=== PATIENT | female | born 1955 | race Caucasian/White ===

== ENCOUNTER 2020-12-08 17:11 | Outpatient (CLI) | payer MEDICARE, SELFPAY ==
--- NOTE | ~2020-12-08 | XR_ITS ---
EXAMINATION: XR thoracic spine 2V DATE: 12/08/2020 17:50 INDICATION: Back pain TECHNIQUE: AP and lateral views of the thoracic spine were obtained. COMPARISON: 02/14/2012 FINDINGS: There is no fracture. The vertebral body heights and alignment are maintained. There is mil d to moderate loss of intervertebral disc space height at multiple levels. Degenerative osteophytes p roject from the anterior endplates of multiple vertebral bodies. Changes of anterior fusion procedure are noted in the cervical spine. IMPRESSION: 1. Moderate thoracic spondylosis without acute findings or significant interval change. Reviewed, dictated and finalized at location A. L STRUCTURAL ENGINEER
--- NOTE | ~2020-12-08 | XR_ITS ---
EXAMINATION: XR chest 2V DATE: 12/08/2020 17:51 INDICATION: Right chest pain TECHNIQUE: PA and lateral views of the chest are obtained. COMPARISON: 01/11/2014 FINDINGS: The lungs are free of acute opacities. There is no pleural effusion or pneumothorax. The ca rdiomediastinal silhouette is normal. There is moderate thoracic spondylosis. Changes of anterior fus ion procedure are noted in the lower cervical spine. IMPRESSION: 1. No acute cardiopulmonary abnormality. Reviewed, dictated and finalized at location A. ITURE MECHANIC
== END 2020-12-08 17:12 | disposition home or self-care (01) ==
LOC: CHSIMG 17:15
PROVIDERS: PCP Internal Medicine; Visit Provider Internal Medicine
DX: M54.6 Pain in thoracic spine (principal); R07.9 Chest pain, unspecified; R10.11 Right upper quadrant pain
CPT/HCPCS: 71046; 72070

== ENCOUNTER 2020-12-14 07:47 | Outpatient (CLI) | payer MEDICARE, SELFPAY ==
--- NOTE | ~2020-12-14 | US_ITS ---
EXAMINATION: US right upper quadrant DATE: 12/14/2020 08:29 INDICATION: Right upper quadrant abdominal pain. TECHNIQUE: Multiple grayscale and Doppler ultrasound images of the abdomen were obtained. COMPARISON: None FINDINGS: The visualized portions of the head, body, and tail of the pancreas are normal. The liver i s normal without focal lesion. No liver surface nodularity. There is normal flow in main portal vein. The gallbladder is normal in size. No gallstones or gallbladder wall thickening. There was no sonogr aphic Talbot sign. The common duct is normal and measures 5 mm. IMPRESSION: 1. Normal right upper quadrant ultrasound. Reviewed, dictated and finalized at location A. OF BIOLOGY
== END 2020-12-14 07:48 | disposition home or self-care (01) ==
LOC: CHSIMG 07:49
PROVIDERS: PCP Internal Medicine; Visit Provider Internal Medicine
DX: R10.11 Right upper quadrant pain (principal)
CPT/HCPCS: 76705

== ENCOUNTER 2020-12-20 06:52 | Outpatient (CLI) | payer MEDICARE, SELFPAY ==
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
[2020-12-20 07:45] LABS: Estimated Glomerular Filt Rate 56
== END 2020-12-20 06:53 | disposition home or self-care (01) ==
PROVIDERS: Family Provider Internal Medicine; PCP Internal Medicine; Visit Provider Internal Medicine
DX: M54.6 Pain in thoracic spine (principal); R07.89 Other chest pain; Z98.1 Arthrodesis status; K44.9 Diaphragmatic hernia without obstruction or gangrene; I25.10 Atherosclerotic heart disease of native coronary artery without angina pectoris; M85.88 Other specified disorders of bone density and structure, other site
CPT/HCPCS: 71260; Q9967

== ENCOUNTER 2020-12-24 12:29 | Outpatient (CLI) | payer MEDICARE, SELFPAY ==
--- NOTE | ~2020-12-24 | MR_ITS ---
EXAMINATION: MR thoracic spine wo con EXAM DATE: 12/24/2020 13:15 INDICATION: Mid back pain; chest wall pain. TECHNIQUE: Multi-sequential, multiplanar MR images of the thoracic spine were obtained without contra st. Sagittal T1, T2, T2 fat saturation, axial T2 weighted images reviewed. Correlation is made to oracic x-ray 12/08/2020. FINDINGS: There is mild to moderate mid and lower thoracic disc disease. There is small disc central extrusion at T6-7 with cephalad migration. This is indenting the spinal cord but there is no cord ed inocente and only mild central canal stenosis. Smaller disc protrusion at the T7-8 level. No significant t horacic neural foraminal stenosis. The spinal cord signal intensity and intrinsic morphology is juni l. There are are no suspicious marrow signal abnormalities. Paraspinal soft tissue is unremarkable. 2 cm right thyroid lobe nodule. IMPRESSION: 1. Mild to moderate thoracic spondylosis as above. Reviewed, dictated and finalized at location B. MOTIVE GENERAL SALES MANAGER
== END 2020-12-24 12:30 | disposition home or self-care (01) ==
PROVIDERS: PCP Internal Medicine; Visit Provider Internal Medicine
DX: R07.9 Chest pain, unspecified (principal); M47.894 Other spondylosis, thoracic region
CPT/HCPCS: 72146

== ENCOUNTER 2021-06-27 09:55 | Outpatient (CLI) | payer MEDICARE, SELFPAY ==
[2021-06-27 10:59] LABS: SARS-CoV-2 RNA PCR Positive (Negative)
== END 2021-06-27 09:56 | disposition home or self-care (01) ==
PROVIDERS: PCP Internal Medicine; Visit Provider Internal Medicine
DX: U07.1 COVID-19 (principal)
CPT/HCPCS: C9803; U0003; U0005

== ENCOUNTER 2022-07-04 13:03 | Outpatient (CLI) | payer MEDICARE, SELFPAY ==
--- NOTE | ~2022-07-04 | XR_ITS ---
XR knee RT min 4V 07/04/2022 13:36 Indication: Right knee pain Procedure: 4 views right knee Comparison: No prior studies for comparison. Findings: There is mild tricompartment osteoarthritis of the right knee. There is chondrocalcinosis. No fracture or traumatic malalignment. No joint effusion. Impression: 1: Mild osteoarthritis of the right knee. Reviewed, dictated and finalized at location B. Impression: 1: Mild osteoarthritis of the right knee.
--- NOTE | ~2022-07-04 | XR_ITS ---
EXAMINATION: XR elbow LT min 3V DATE: 07/04/2022 13:35 INDICATION: Left elbow pain TECHNIQUE: Anteroposterior, two oblique and lateral views of the left elbow were obtained. COMPARISON: 03/27/2011 FINDINGS: Alignment is normal. No fracture or joint effusion. There is mild osteoarthritis of the elb ow. Soft tissues are unremarkable. IMPRESSION: 1. No acute osseous abnormality. Reviewed, dictated and finalized at location A.
--- NOTE | ~2022-07-04 | XR_ITS ---
EXAMINATION: XR knee LT min 4V DATE: 07/04/2022 13:36 INDICATION: Left knee pain TECHNIQUE: Four views of the left knee were obtained. COMPARISON: 12/21/2020 FINDINGS: Bone alignment is normal. There is fracture. Chondrocalcinosis is noted. There is mild tric ompartmental osteoarthritis characterized by tiny marginal osteophytes. No joint effusion/synovitis. Soft tissues are unremarkable. IMPRESSION: 1. Osteoarthritis without acute osseous abnormality. Reviewed, dictated and finalized at location A.
--- NOTE | ~2022-07-04 | XR_ITS ---
XR shoulder LT min 2V 07/04/2022 13:35 Indication: Left shoulder pain Procedure: 4 views left shoulder Comparison: 02/16/2021 Findings: There is polyarticular osteoarthritis of the left shoulder. No fracture is identified. No f oreign bodies. Visualized lung parenchyma is are unremarkable. Impression: 1: Polyarticular osteoarthritis of the left shoulder. Reviewed, dictated and finalized at location B. Impression: 1: Polyarticular osteoarthritis of the left shoulder.
== END 2022-07-04 13:04 | disposition home or self-care (01) ==
LOC: ANHIMG 13:05
PROVIDERS: PCP Internal Medicine; Visit Provider Internal Medicine
DX: M19.012 Primary osteoarthritis, left shoulder (principal); M17.0 Bilateral primary osteoarthritis of knee; M25.522 Pain in left elbow
CPT/HCPCS: 73030; 73080; 73564

== ENCOUNTER 2022-07-10 12:49 | Outpatient (CLI) | payer MEDICARE, SELFPAY | END 2022-07-10 12:50 | disposition home or self-care (01) | LOC: ANHAUDIO 12:53 | PROVIDERS: PCP Internal Medicine; Visit Provider Internal Medicine | DX: H90.3 Sensorineural hearing loss, bilateral (principal) | CPT/HCPCS: 92557; 92567 ==

== ENCOUNTER 2022-08-10 10:06 | Outpatient (CLI) | payer MEDICARE, SELFPAY ==
--- NOTE | ~2022-08-10 | MM_ITS ---
EXAMINATION: MM screening [facility] BI w sarah HISTORY: Screening mammogram TECHNIQUE: Craniocaudal and mediolateral oblique 3-D tomosynthesis images were obtained and synthetic 2-D images were generated. CAD analysis was submitted and interpreted. COMPARISON: 05/05/2019, 01/24/2017, 01/19/2015 BREAST PARENCHYMAL COMPOSITION: There are scattered areas of fibroglandular density. FINDINGS: There is no suspicious mass, calcification, or architectural distortion to suggest malignan cy in either breast. There has been no suspicious interval change. IMPRESSION: 1. No mammographic evidence of malignancy. 2. Recommend routine screening mammography in one year. BI-RADS Category 1: Negative Reviewed, dictated and finalized at location A.
== END 2022-08-10 10:07 | disposition home or self-care (01) ==
PROVIDERS: PCP Internal Medicine; Visit Provider Internal Medicine
DX: Z12.31 Encounter for screening mammogram for malignant neoplasm of breast (principal)
CPT/HCPCS: 77063; 77067

== ENCOUNTER 2022-09-19 07:44 | Outpatient (CLI) | payer MEDICARE, SELFPAY ==
--- NOTE | ~2022-09-19 | MR_ITS ---
EXAMINATION: MR shoulder LT wo con DATE: 09/19/2022 08:26 INDICATION: Left shoulder pain TECHNIQUE: Magnetic resonance imaging (MRI) of the left shoulder was performed without intravenous co ntrast. Sequences included axial PD-weighted FS FSE, coronal oblique PD-weighted FS FSE, coronal obli que T2-weighted FS FSE, sagittal PD-weighted FS FSE, and sagittal T1-weighted SE. COMPARISON: None. FINDINGS: Coracoacromial arch: The acromion undersurface is flat in morphology (type I). Small anterior subacromial spur at the femo ral insertion of the coracoclavicular ligament. Moderate acromioclavicular osteoarthritis. Rotator cuff: Mild to moderate supraspinatus and infraspinatus tendinopathy with prominent anteriorly. There is a s mall partial-thickness tear at the distal supraspinatus tendon which appears to involve the bursal catalan rface. The tear measures 3 mm AP and involving approximately two thirds of the tendon thickness at th e anterior aspect of the superior facet footplate. The teres minor and subscapularis tendons are norm al. Normal rotator cuff muscle bulk and signal. Biceps tendon, glenoid labrum and glenohumeral cartilage: Long head of the biceps tendon is normal. Linear tear at the base of the anterior to anteroinferior g lenoid labrum with associated small para labral cysts along the anterior neck of the glenoid. More ir regular linear increased signal consistent with additional tear at the anterosuperior labrum. Additio nal small loculated fluid collections extending both anterior and posterior to the neck of the coraco id process. Anteriorly this could represent a typical recess of the joint however the more posterior extension would be atypical and suggests this is more likely related to an additional prior labral cy st. Partial-thickness cartilage loss along the anterior glenoid greatest anteroinferiorly where there are small marginal osteophytes and mild subarticular cystic changes at the 7-8:00 position of the an teroinferior rim of the glenoid. Mild amorphous increased intrasubstance signal at the posterior supe rior labrum which appears thickened with rounded margin consistent with labral degeneration. Fluid: Physiologic amount of fluid in the glenohumeral joint and biceps tendon sheath. No loose osteochondr al bodies. Small amount of fluid in the subacromial/subdeltoid bursa consistent with mild bursitis. Bones: Normal marrow signal with no edema, fracture or abnormal marrow replacing process. IMPRESSION: 1. Mild glenohumeral osteoarthritis with small region of high-grade chondromalacia at the anteroinfer ior glenoid. 2. Labral tear extending superiorly from the anteroinferior glenoid to involve the anterior, superior and posterosuperior labrum. There appear to be associated anterior and anterosuperior paralabral cys ts. 3. Mild to moderate supraspinatus and infraspinatus tendinopathy with very small moderate severity bu rsal sided tear at the footplate of the anterior supraspinatus tendon. 4. Moderate acromioclavicular osteoarthritis. 5. Mild subacromial/subdeltoid bursitis. Reviewed, dictated and finalized at location B. IMPRESSION: 1. Mild glenohumeral osteoarthritis with small region of high-grade chondromala chinyere at the anteroinferior glenoid. 2. Labral tear extending superiorly from the anteroinferior glenoid to involve the anterior, superior and posterosuperior labrum. There appear to be associate d anterior and anterosuperior paralabral cysts. 3. Mild to moderate supraspinatus and infraspinatus tendinopathy with very smal l moderate severity bursal sided tear at the footplate of the anterior supraspi natus tendon. 4. Moderate acromioclavicular osteoarthritis. 5. Mild subacromial/subdeltoid bursitis.
== END 2022-09-19 07:45 ==
PROVIDERS: PCP Internal Medicine; Visit Provider Internal Medicine
DX: M75.52 Bursitis of left shoulder (principal); M19.012 Primary osteoarthritis, left shoulder
CPT/HCPCS: 73221

== ENCOUNTER 2022-10-04 01:32 | Observation (INO) | payer MEDICARE, SELFPAY ==
[2022-10-04] VITALS (46 sets, daily range): BP systolic 105–149; BP diastolic 50–104; PULSE 60–118; RESP 11–23; TEMP 36.6–37.4; O2SAT 94–100; BMI 41.3
--- NOTE | ~2022-10-04 | XR_ITS ---
EXAMINATION: XR chest 2V DATE: 10/04/2022 02:13 INDICATION: Chest pain. TECHNIQUE: Frontal and lateral views of the chest were obtained. COMPARISON: Chest 2 views 12/08/2020 FINDINGS: There is mild atelectasis in left lower lung zone. No pleural effusion or pneumothorax. The heart size is normal. There are changes of anterior fusion procedure in cervical spine. IMPRESSION: 1. Mild atelectasis in left lower lung zone. Reviewed, dictated and finalized at location A. S SPECIALIST
--- NOTE | 2022-10-04 01:37 | ECG_ITS ---
Measurements Intervals [place] Rate: 68 P: 30 CT: 140 QRS: -44 QRSD: 125 T: 30 QT: 420 QTc: 448 Interpretive Statements SINUS RHYTHM LEFT AXIS DEVIATION POSSIBLE LEFT ATRIAL ENLARGEMENT RIGHT BUNDLE BRANCH BLOCK POSSIBLE LEFT VENTRICULAR HYPERTROPHY MINIMAL Q WAVES- HIGH LATERAL LEADS CANNOT RULE OUT SEPTAL INFARCT, AGE INDETERMINATE ABNORMAL ECG NO PREVIOUS ECG AVAILABLE FOR COMPARISON Electronically Signed On 10-04-2022 5:51:16 ANTI AIR WARFARE OPERATIONS OFFICER by Wilbert Olivo D.O.
[2022-10-04 01:56] LABS: Basophils Absolute Auto 0.1 K/mm3 (0.0-0.1); Basophils Percent Auto 0.6 % (0.2-1.2); Eosinophils Absolute Auto 0.2 K/mm3 (0-0.3); Eosinophils Percent Auto 1.6 % (0-4.4); Hematocrit 39.6 % (37.0-47.0); Hemoglobin 12.6 g/dL (12.0-15.0); Immature Granulocyte Absolute 0.05 K/mm3 (0.00-0.031); Immature Granulocyte Percent A 0.4 % (0-0.5); Lymphocytes Absolute Auto 3.07 K/mm3 (0.9-3.2); Lymphocytes Percent Auto 25.5 % (18.3-44.2); Mean Corpuscular HGB Conc 31.8 g/dl (32-36); Mean Corpuscular Hemoglobin 30.8 pg (26-34); Mean Corpuscular Volume 96.8 fl (80-100); Mean Platelet Volume 9.6 fl (7.4-10.4); Monocytes Absolute Auto 0.7 K/mm3 (0.1-0.6); Monocytes Percent Auto 5.7 % (2.6-8.5); Neutrophils Percent Auto 66.2 % (45.5-73.1); Platelet Count Result 329 k/mm3 (150-375); Red Blood Count 4.09 M/mm3 (4.2-5.4); Red Cell Distribution Width 13.4 % (11.5-14.5)
--- NOTE | 2022-10-04 02:03 | ED.GENADULT ---
HPI - General Adult General Chief complaint: Chest Pain Stated complaint: CP Time Seen by Provider: 10/04/22 01:44 History of Present Illness HPI narrative: Patient is a 67-year-old female who presents emergency department with chief complaint of chest pain. Patient reports this evening around 10:30-11 she started having chest discomfort. The patient states it woke her up reports that she got a little short of breath with it reports the pain radiates to her neck. Patient reports the pain is not improved by anything nor is it worsened by anything. Patient reports that she has had a cardiac cath in the past that did not require any stent placement but did have some small vessel disease and has had a imaging study that showed that she had some blockage in her posterior aspect of her heart but has not required stenting from her recent imaging study. The patient states that she is unable to tolerate statins and is on a blood pressure medicine. Related Data Home Medications Medication Instructions Recorded Confirmed cholecalciferol (vitamin D3) 125 125 mcg PO DAILY 12/16/20 10/04/22 mcg (5,000 unit) capsule cranberry extract 500 mg capsule 500 mg PO DAILY 12/16/20 10/04/22 (Cranberry Concentrate) ferrous sulfate 27 mg iron tablet 27 mg PO DAILY 10/04/22 10/04/22 fluticasone propionate 50 1 spray intranasal BID 10/04/22 10/04/22 mcg/actuation nasal spray,suspension ibuprofen 200 mg tablet (Advil) 200 mg PO Q6H PRN Pain (Scale 10/04/22 10/04/22 Score 1-3) losartan 100 1 tablet PO DAILY 10/04/22 10/04/22 mg-hydrochlorothiazide 25 mg tablet multivitamin with minerals-folic 2 tablet PO DAILY 10/04/22 10/04/22 acid 200 mcg chewable tablet (Adult Multivitamin Gummies) potassium chloride 10 mEq 10 meq PO DAILY 10/04/22 10/04/22 tablet,extended release(part/cryst) Allergies Allergy/AdvReac Type Severity Reaction Status Date / Time NSAIDS (Non-Steroidal Allergy Intermediate Verified 01/11/14 15:10 Anti-Inflamma Review of Systems Review of Systems: Stroke A 10 system review of systems was completed on the patient and is negative except for what is stated in the HPI. Nursing and ancillary documentation was reviewed. [facility] Past Medical History Medical History BMI 39.0-39.9,adult Calcific tendinitis of left shoulder Chondrocalcinosis of left knee Gout Hypertension Surgical History Surgical History H/O neck surgery 2001, 2007 Dr. Brush , Dr. Mendoza Previous back surgery lower back, 2011, Dr. Mendoza Family History Family History Sibling Family history of diabetes mellitus in first degree relative Father Family history of heart disease in male family member before age 55 Other Family history of cardiovascular disease Hypertension Social History Social History Smoking status: Never smoker Smoking end date: 11/19/95 Alcohol intake: never Substance use: never Lack of Transportation: No Lack of Food: Never True Current Housing: I Have Housing Concerned About Future Housing: No Difficulty Paying Gas/Electric Bills: No Difficulty Paying for Meds: No Currently Unemployed: No Education: Decline to Answer Difficulty w/ Childcare or Family Care: No Gender identity (if verbalized by the patient): Female Spiritual care concerns: No Exam Narrative: GENERAL: Well-appearing, well-nourished, and in no acute distress. HEAD: Normocephalic, atraumatic. EYES: PERRLA and EOMI. ENT: Nares clear, no rhinorrhea or epistaxis. Mucous membranes moist. NECK: Supple. CHEST: Clear to auscultation. No respiratory distress. HEART: Regular rate and rhythm. No murmur heard. Normal peripheral pulses. ABDOMEN: Soft, nontender, nondistend
[2022-10-04 02:07] LABS: Alanine Aminotransferase 21 U/L (6-35); Albumin Level 4.6 g/dL (3.5-5.1); Alkaline Phosphatase 82 U/L (38-126); Anion Gap 11 mmol/L (8-16); Aspartate Amino Transferase 26 U/L (14-36); Bilirubin,Total 0.5 mg/dL (0.2-1.3); Blood Urea Nitrogen 22 mg/dL (7-17); Calcium 9.5 mg/dL (8.4-10.2); Carbon Dioxide 26 mmol/L (22-30); Chloride 101 mmol/L (98-107); Estimated CRCL calculation 69 ml/min; Estimated Glomerular Filt Rate > 60; Glucose 121 mg/dL (65-110); Lipase 239 U/L (23-300); Partial Thromboplastin Time 26.6 SECONDS (22.3-36.8); Potassium 3.7 mmol/L (3.4-5.0); Prothrombin Time 12.6 Seconds (11.1-14.7); Sodium 138 mmol/L (137-145)
[2022-10-04] MEDS: MORPHINE SULFATE (*CRX) 4 MG/ML INJ IV PUSH (02:15)
[2022-10-04] MEDS: ONDANSETRON INJ 4 MG/2 ML VIAL IV PUSH (02:15)
[2022-10-04] MEDS: NITROGLYCERIN SL 0.4 MG TABLET SUBLINGUAL (02:15)
[2022-10-04 02:19] LABS: Troponin I < 0.012 ng/mL (0.000-0.034)
[2022-10-04] MEDS: HYDROmorphone HCL INJ (*CRX) 1 MG/ML SYR IV PUSH ×2 (04:00→08:45)
--- NOTE | 2022-10-04 04:18 | PC.NURSE ---
Dr Lucas notified pt placed on 2 Liters O2 via NC for O2 sat 87% on room air after pain meds administered. No new orders received.
[2022-10-04 04:57] LABS: Influenza A QL RT-PCR Negative (Negative); Influenza B QL RT-PCR Negative (Negative); SARS-CoV-2 RNA PCR Negative
--- NOTE | 2022-10-04 05:49 | ADMGEN ---
This patient, Laury Tillman, was admitted to IMU Room 201-01. Patient/family oriented to hospital policies and general routines including ID bracelet, bed and alarms, visiting hours, pain management, procedures, bathroom and other care routines, personal items, smoking policy, room service/diet, and visiting hours. Information on how to activate the Rapid Response Team has been discussed. Patient/Family are encouraged to report perceived risks to care and to ask questions if they do not understand what they are told or what they should do.
[2022-10-04 08:00] LABS: Troponin I < 0.012 ng/mL (0.000-0.034)
[2022-10-04] MEDS: ASPIRIN 81 MG CHEWABLE TABLET PO (08:45)
[2022-10-04] MEDS: PANTOPRAZOLE SODIUM IV 40 MG VIAL IV PUSH (08:45)
--- NOTE | 2022-10-04 10:27 | PM.IMHP ---
H&P: HPI History of Present Illness Date/Time: 10/04/22 10:27 Chief Complaint: Patient complains of chest pain Narrative: 67-year-old female complains of midsternal chest pain sharp in nature so chest pain lasting 10-15 minutes. No history of any abdominal pain nausea vomiting well-controlled hypertension no associated symptoms patient was noted to have ST-T changes on the EKG with right bundle saad block. Previous history of cardiac catheterization in the past did not require any stent placement Review of Systems Review of Systems: No fevers chills nausea vomiting. No double vision no blurry vision. No difficulty hearing or sinus complaints. chest pain shortness of breath fever palpitation dizziness ankle swelling. No coughing wheezing chills. No nausea constipation diarrhea abdominal pain reflux. No urgency frequency of urination. No hematuria. No skin rash eczema. No anxiety depression difficulty sleeping. No bleeding gums enlarged glands. No muscle ache back pain joint stiffness. No loss of strength numbness headache tremor or loss of memory. [facility] Past Medical History Medical History (Updated 10/04/22 @ 10:33 by Davian Loving MD) BMI 39.0-39.9,adult Calcific tendinitis of left shoulder Chondrocalcinosis of left knee Gout Hypertension Surgical History Surgical History H/O neck surgery 2001, 2007 Dr. Brush , Dr. Mendoza Previous back surgery lower back, 2011, Dr. Mendoza Family History Family History Sibling Family history of diabetes mellitus in first degree relative Father Family history of heart disease in male family member before age 55 Other Family history of cardiovascular disease Hypertension Social History Social History Smoking status: Never smoker Smoking end date: 11/19/95 Alcohol intake: never Substance use: never Lack of Transportation: No Lack of Food: Never True Current Housing: I Have Housing Concerned About Future Housing: No Difficulty Paying Gas/Electric Bills: No Difficulty Paying for Meds: No Currently Unemployed: No Education: Decline to Answer Difficulty w/ Childcare or Family Care: No Gender identity (if verbalized by the patient): Female Spiritual care concerns: No Meds Home Medications and Allergies Home Medications Medication Instructions Recorded Confirmed Type cholecalciferol (vitamin D3) 125 125 mcg PO DAILY 12/16/20 10/04/22 History mcg (5,000 unit) capsule cranberry extract 500 mg capsule 500 mg PO DAILY 12/16/20 10/04/22 History (Cranberry Concentrate) ferrous sulfate 27 mg iron tablet 27 mg PO DAILY 10/04/22 10/04/22 History fluticasone propionate 50 1 spray intranasal BID 10/04/22 10/04/22 History mcg/actuation nasal spray,suspension ibuprofen 200 mg tablet (Advil) 200 mg PO Q6H PRN Pain (Scale 10/04/22 10/04/22 History Score 1-3) losartan 100 1 tablet PO DAILY 10/04/22 10/04/22 History mg-hydrochlorothiazide 25 mg tablet multivitamin with minerals-folic 2 tablet PO DAILY 10/04/22 10/04/22 History acid 200 mcg chewable tablet (Adult Multivitamin Gummies) potassium chloride 10 mEq 10 meq PO DAILY 10/04/22 10/04/22 History tablet,extended release(part/cryst) Allergies Allergy/AdvReac Type Severity Reaction Status Date / Time NSAIDS (Non-Steroidal Allergy Intermediate Verified 01/11/14 15:10 Anti-Inflamma Vital Signs Vital Signs - 24 hr 10/04/22 01:44 10/04/22 01:44 10/04/22 01:44 Temperature 36.6 C Pulse Rate 76 76 Respiratory Rate 18 Blood Pressure 149/70 H Pulse Oximetry 99 Oxygen Delivery Room Air Room Air Oxygen Flow Rate 10/04/22 01:43 10/04/22 01:45 10/04/22 01:46 Temperature Pulse Rate 75 77 76 Respiratory Rate 17 23 H 18 Blood
[2022-10-04] MEDS: FLUTICASONE PROPIONATE 0.05% NA SPR 16 GM BTL (*BKC) 1 SPRAY NASAL ×2 (12:27→20:04)
--- NOTE | 2022-10-04 13:21 | ECG_ITS ---
Measurements Intervals [place] Rate: 85 P: 34 FL: 139 QRS: -45 QRSD: 126 T: 31 QT: 380 QTc: 454 Interpretive Statements SINUS RHYTHM RIGHT BUNDLE BRANCH BLOCK LEFT ANTERIOR FASCICULAR BLOCK LEFT VENTRICULAR HYPERTROPHY MINIMAL Q WAVES- HIGH LATERAL LEADS ABNORMAL ECG COMPARED TO ECG 10/04/2022 01:43:56 LEFT ANTERIOR FASCICULAR BLOCK NOW PRESENT Electronically Signed On 10-04-2022 14:00:09 TICK INSPECTOR by Wilbert Olivo D.O.
--- NOTE | 2022-10-04 13:21 | PM.CNCAR ---
Assessment and Plan Assessment and plan (1) Chest pain: Code(s): R07.9 - Chest pain, unspecified Status: Acute Assessment and Plan: Atypical, constant pleuritic in nature worse with movement, deep breathing ruled out for myocardial infarction with negative serial cardiac enzymes and without acute ischemic ECG changes with underlying chronic RBBB. Coronary flow reserve normal. Bedside 2D echocardiogram reveals normal LV and hyperdynamic function without wall motion abnormalities EF greater than 70% without significant valve pathology, pericardium unremarkable. Symptoms atypical, very likely noncardiac. We discussed at great length he had ischemic evaluation with left heart catheterization. Patient states she does not feel she needs this and I agree given persistence of her symptoms with negative enzymes without evidence of ischemia or evidence of wall motion abnormalities and very recent unremarkable stress test without infarct or ischemia. Therefore further management per primary service for musculoskeletal/pleuritic chest pain. She will follow-up with her rayon coner as an outpatient. All questions answered to her satisfaction. Please do not hesitate to contact us with with any additional questions or concerns. Disposition per hospitalist service. They returned bedside several times to inquire as to her status and after review of available records and echocardiogram. Patient is in agreement with plan of care and states she would like to discharge home. Disposition per hospitalist service. Continue aspirin 81 mg daily. Ideally, would recommend addition of statin therapy, however, she reports she is intolerant to statins. (2) CAD (coronary artery disease): Code(s): I25.10 - Atherosclerotic heart disease of eek coronary artery without angina pectoris Status: Acute Assessment and Plan: Elevated coronary artery calcium score but normal stress test August 2022. Normal coronary anatomy on left heart catheterization 2009. Patient reports left heart catheterization where she was told she had mild blockage within the past 10 years although we do not have these records. (3) Bilateral carotid bruits: Code(s): R09.89 - Other specified symptoms and signs involving the circulatory and respiratory systems Status: Acute Assessment and Plan: Bilateral carotid arterial duplex ultrasound may be deferred as an outpatient obtained this hospitalization if she remains in-house. No symptoms in this regard. Follow up with her rayon coner as an outpatient for further management. (4) Hypertension: Code(s): I10 - Essential (primary) hypertension Status: Acute Assessment and Plan: Stable, continue medical therapy with losartan hydrochlorothiazide. History of Present Illness History of Present Illness Consult date/time: Date of service: 10/04/22 13:21 Requesting physician: Davian Loving MD Consult reason: chest pain Reason For Visit: chest pain Narrative: Patient is a very pleasant 67 no female who presented to the ER with complaints of chest pain which awoke her from sleep around 11:00 p.m. night before. She describes sharp pain worse with movement, rotation and or deep breathing kg radiates to her neck. She reports no trauma, recent illnesses, coughing, fevers, chills or falls. She has not had symptoms similar to this in the past. She follows with a rayon coner at [facility] and states she very recently had a stress test for complaints of some shortness of breath and palpitations. She states there was some abnormality but she was overall told things look fairly good. He denies significant change in lower extremity edema, orthopnea PND. She denies shortness of breath at this time. No nausea vomiting. She denies palpitations at this time. No near-syncope or syncope. She reports having at least 3 cardiac catheterizations in the past. She had normal coronary anatomy le
--- NOTE | 2022-10-04 13:26 | ECHO_ITS ---
Patient Info Name: Laury Tillman Age: 67 years : 1955 Gender: Female Ht: 66 in Wt: 255 lbs BSA: 2.38 m2 HR: 89 bpm BP: 121 / 61 mmHg Heart Rhythm: Sinus Rhythm Technical Quality: Good Exam Date: 10/04/2022 2:39 PM Exam Location: [facility] Pulmonary Exam Room: 201 Patient Status: Inpatient Admit Date: 10/04/2022 Staff Ordering Physician: Raheem Lopez MD Information Security: Nurys Bryatn RCS Attending Provider: Angelica Cruz M.A., MD Referring Physician: John DEL CID; Exam Type: CA echo doppler color flow Study Info Indications R07.89 - Other chest pain Complete two-dimensional, color flow and Doppler transthoracic echocardiogram is performed. Summary 1. Complete two-dimensional, color flow and Doppler transthoracic echocardiogram is performed. 2. Left ventricular chamber dimension is normal. 3. Left ventricular systolic function is hyperdynamic, estimated at >70%. 4. There is no increased left ventricular wall thickness. 5. The left ventricular diastolic function is grade I diastolic dysfunction. 6. There is no aortic valve stenosis. 7. There is trace tricuspid valve regurgitation. 8. No pulmonary hypertension, estimated pulmonary arterial systolic pressure is 29 mmHg. 9. Normal inferior vena cava with >50% collapse upon inspiration consistent with normal right atrial pressure, 5 mmHg. 10. The pericardium appears normal. Left Ventricle Left ventricular chamber dimension is normal. Left ventricular systolic function is hyperdynamic, estimated at >70%. There is no increased left ventricular wall thickness. The left ventricular diastolic function is grade I diastolic dysfunction. Right Ventricle Right ventricular chamber dimension is normal. Right ventricular systolic function is normal. Left Atria Left atrial chamber dimension is mildly enlarged. Right Atria Right atrial chamber dimension is normal. Aortic Valve The aortic valve is trileaflet. There is no aortic valve stenosis. There is no aortic valve regurgitation. Pulmonic Valve The pulmonic valve is not well visualized. Mitral Valve The mitral valve has normal leaflets. There is no mitral valve regurgitation. The mitral valve annulus is severely calcified. Tricuspid Valve The tricuspid valve leaflets are normal. There is trace tricuspid valve regurgitation. No pulmonary hypertension, estimated pulmonary arterial systolic pressure is 29 mmHg. Pericardium/Pleural The pericardium appears normal. There is no pericardial effusion. Inferior Vena Cava Normal inferior vena cava with >50% collapse upon inspiration consistent with normal right atrial pressure, 5 mmHg. Aorta The aortic root size at the sinus of Valsalva is normal. There is mild aortic atherosclerosis. Left Ventricular Outflow Tract Name Value Normal LVOT 2D LVOT Diameter 2.0 cm LVOT Doppler LVOT Peak Gradient 6 mmHg LVOT Mean Gradient 4 mmHg LVOT VTI 24 cm LVOT VTI/AV VTI Ratio 0.8 LVOT Stroke
[2022-10-04 14:10] LABS: Cholesterol 212 mg/dL (0-200); HDL Direct 58 mg/dL; Triglycerides 136 mg/dL (<150)
[2022-10-04 14:22] LABS: LDL Cholesterol Direct 110 mg/dL
[2022-10-04 14:23] LABS: Troponin I < 0.012 ng/mL (0.000-0.034)
[2022-10-04] MEDS: ACETAMINOPHEN 325 MG TABLET 650 MG PO (20:40)
[2022-10-05] VITALS: BP 111/55; PULSE 82; PULSE 84; RESP 16; RESP 20; TEMP 36.2; O2SAT 95; O2SAT 98
[2022-10-05 02:00] VITALS: PULSE 74
[2022-10-05] MEDS: ACETAMINOPHEN 325 MG TABLET 650 MG PO (03:11)
[2022-10-05 04:00] VITALS: BP 130/57; PULSE 76; PULSE 78; RESP 20; TEMP 36.8; O2SAT 95; O2SAT 98
[2022-10-05 05:57] VITALS: PULSE 72
[2022-10-05 07:47] VITALS: PULSE 79; O2SAT 96
[2022-10-05 08:00] VITALS: BP 132/59; PULSE 74; PULSE 78; RESP 18; TEMP 36.4; O2SAT 97
--- NOTE | 2022-10-05 08:38 | P.DS_ITS ---
DS: Admitting Diagnosis Discharge Date 10/05/22 Admitting Diagnosis Of typical chest wall DS: Discharge Diagnosis Discharge Diagnosis Plan chest pain DS: Summary Hospital Course Hospital Course: 67-year-old female admitted the hospital history of chest pain shortness for breath. 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 2D echo revealed normal LV function ejection fraction of 70%. Patient had a normal cardiac catheterization 2010 records have been reviewed. Patient's cardiac enzymes are normal EKG shows no acute changes except the chronic right bundle branch block. Discharge home follow-up with primary care physician in 1 week follow up with Cardiology in 1 patient going home on aspirin statin as recommended by Cardiology Status at Discharge Overall status at discharge: patient is back to baseline Time Spent with Patient Time attestation: Total time spent providing and/or coordinating discharge services: Exam Narrative: GENERAL: Well appearing, well-nourished, non-toxic, in no acute distress. HEAD: Normocephalic, atraumatic. NECK: Supple. No adenopathy, no masses. RESPIRATORY: Airway patent, respirations nonlabored. Clear to auscultation bilaterally, no rales, rhonchi, wheezing. CARDIOVASCULAR: Regular rate and rhythm without murmurs, rubs, or gallops. Peripheral pulses 2+ and equal bilaterally. ABDOMINAL: Soft, nontender, nondistended, no hepatosplenomegaly. Normoactive BS. MUSCULOSKELETAL: no Epigastric and no hypochondrial tenderness SKIN: Warm, dry, normal color. No rashes. NEURO: A&O X3. Moves all extremities PSYCHIATRIC: Appropriate mood and affect. Normal interaction. DS: Data Data Completed and Pending Labs on day of discharge: Labs from last 24 hours 10/04/22 13:30 Troponin I < 0.012 Triglycerides 136 Cholesterol 212 H LDL Cholesterol Direct 110 HDL Direct 58 Discharge Plan Discharge Attending physician on discharge: Davian Loving Consulting providers: Alphonso Bojorquez Discharging Clinician: Davian Loving Patient Disposition: Home, Self-Care Activity: as tolerated Diet: low cholesterol Patient Instructions: Antibiotic Form, Chest Pain (DC) Stand Alone Forms: General Discharge Information Follow-up/Referrals: Alphonso Bojorquez MD [Physician] - Discharge Medications: New atorvastatin 20 mg tablet 20 mg PO DAILY Qty: 30 0RF Continued cranberry extract [Cranberry Concentrate] 500 mg capsule 500 mg PO DAILY cholecalciferol (vitamin D3) 125 mcg (5,000 unit) capsule 125 mcg PO DAILY losartan-hydrochlorothiazide 100-25 mg tablet 1 tablet PO DAILY ibuprofen [Advil] 200 mg Tablet 200 mg PO Q6H PRN (Reason: Pain (Scale Score 1-3)) fluticasone propionate 50 mcg/actuation [place],Suspension 1 spray INTRANASAL BID Rx Instructions: administer into each nostril potassium chloride 10 mEq tablet,ER particles/crystals 10 meq PO DAILY ferrous sulfate 27 mg iron Tablet 27 mg PO DAILY Adult Multivitamin Gummies 200 mcg Tablet,Chewable 2 tablet PO DAILY Date of admission: 10/04/22 04:05 Primary Care Provider: UNKNOWN,DOCTOR Admitting Provider: Angelica Cruz M.A. Attending physician on admission: Davian Loving Condition: Stable
[2022-10-05] MEDS: FLUTICASONE PROPIONATE 0.05% NA SPR 16 GM BTL (*BKC) 1 SPRAY NASAL (09:22)
[2022-10-05] MEDS: LOSARTAN POTASSIUM 100 MG TABLET PO (09:22)
[2022-10-05] MEDS: CHOLECALCIFEROL 1,000 UNITS TABLET 5000 UNITS PO (09:22)
[2022-10-05] MEDS: hydroCHLOROthiazide 25 MG TABLET PO (09:23)
[2022-10-05] MEDS: PANTOPRAZOLE SODIUM IV 40 MG VIAL IV PUSH (09:23)
[2022-10-05] MEDS: MULTIVITS W-FE,MIN CHEWABLE TABLET 2 TABLET PO (09:23)
[2022-10-05] MEDS: POTASSIUM CHLORIDE 10 MEQ TABLET.ER PO (09:23)
[2022-10-05] MEDS: ASPIRIN 81 MG CHEWABLE TABLET PO (09:23)
== END 2022-10-05 09:57 | disposition home or self-care (01) ==
LOC: ANHED 05:33 → ANHIMU 05:35
PROVIDERS: Internal Medicine Cardiovascular Disease; Admitting Provider Internal Medicine; Emergency Provider Emergency Medicine; Visit Provider Internal Medicine
DX: R07.9 Chest pain, unspecified (principal); R06.02 Shortness of breath; I25.10 Atherosclerotic heart disease of native coronary artery without angina pectoris; M10.9 Gout, unspecified; J98.11 Atelectasis; I11.9 Hypertensive heart disease without heart failure; R09.89 Other specified symptoms and signs involving the circulatory and respiratory systems; M25.512 Pain in left shoulder; Z20.822 Contact with and (suspected) exposure to COVID-19; G89.29 Other chronic pain; I45.10 Unspecified right bundle-branch block; R94.31 Abnormal electrocardiogram [ECG] [EKG]; Z79.1 Long term (current) use of non-steroidal anti-inflammatories (NSAID); Z79.899 Other long term (current) drug therapy; Z68.39 Body mass index [BMI] 39.0-39.9, adult
CPT/HCPCS: 36415; 71046; 80053; 80061; 83690; 84484; 85025; 85610; 85730; 87636; 93005; 93306; 96374; 96375; 96376; 99285; A9270; C9113; G0378; J1170; J2270; J2405

== ENCOUNTER 2022-10-18 05:21 | Observation (INO) | payer MEDICARE, SELFPAY ==
[2022-10-18] VITALS (29 sets, daily range): BP systolic 120–182; BP diastolic 49–91; PULSE 70–108; RESP 12–24; TEMP 36.4–36.8; O2SAT 91–100
--- NOTE | 2022-10-18 | ECHOL_ITS ---
Patient Info Name: Laury Tillman Age: 67 years : 1955 Gender: Female Ht: 67 in Wt: 248 lbs BSA: 2.36 m2 HR: 92 bpm BP: 146 / 71 mmHg Heart Rhythm: Sinus Rhythm Exam Date: 10/18/2022 4:49 PM Exam Location: [facility] Pulmonary Patient Status: Inpatient Admit Date: 10/18/2022 Staff Ordering Physician: Sole Uribe MD (alla/allyson) Manager Agricultural: Kurt Razo RDCS Attending Provider: Jamil Lu MD Referring Physician: Rony MAYES; Exam Type: CA echo limited Study Info Indications I31.3 - Pericardial effusion (noninflammatory) Limited two-dimensional transthoracic echocardiogram is performed. Summary 1. Left ventricular chamber dimension is normal. 2. Left ventricular systolic function is normal, estimated at 65-70%. 3. There is mildly increased left ventricular wall thickness. 4. Left atrial chamber dimension is moderately enlarged. 5. There is mild aortic valve sclerosis. 6. The mitral valve annulus is moderately calcified. 7. There is mild tricuspid valve regurgitation. 8. The pericardium appears normal. 9. There is trivial pericardial effusion. Left Ventricle Left ventricular chamber dimension is normal. Left ventricular systolic function is normal, estimated at 65-70%. There is mildly increased left ventricular wall thickness. Right Ventricle Right ventricular chamber dimension is normal. Right ventricular systolic function is normal. Left Atria Left atrial chamber dimension is moderately enlarged. Right Atria Right atrial chamber dimension is normal. Aortic Valve The aortic valve is trileaflet. There is mild aortic valve sclerosis. Pulmonic Valve The pulmonic valve is normal. Mitral Valve The mitral valve annulus is moderately calcified. Tricuspid Valve The tricuspid valve leaflets are normal. There is mild tricuspid valve regurgitation. Pericardium/Pleural The pericardium appears normal. There is trivial pericardial effusion. Inferior Vena Cava Dilated inferior vena cava with <50% collapse upon inspiration consistent with elevated right atrial pressure, 15 mmHg. Aorta The aortic root size at the sinus of Valsalva is normal. Tricuspid Valve Name Value Normal Estimated PAP/RSVP RA Pressure 15 mmHg <=5 Report Signatures
--- NOTE | ~2022-10-18 | XR_ITS ---
EXAMINATION: XR chest 2V DATE: 10/18/2022 06:43 INDICATION: Mid chest pain. TECHNIQUE: Frontal and lateral views of the chest were obtained. COMPARISON: Chest 2 views 10/04/2022, chest CT 12/20/2020 FINDINGS: There are airspace opacities at the lung bases. No pleural effusion or pneumothorax. The he art size is normal. There are changes of anterior fusion procedure in cervical spine. IMPRESSION: 1. Airspace opacities at the lung bases, consistent with atelectasis or less likely pneumonia. Reviewed, dictated and finalized at location A. IRER SASH AND DOOR IMPRESSION: 1. Airspace opacities at the lung bases, consistent with atelectasis or less li jennifer pneumonia.
--- NOTE | ~2022-10-18 | CT_ITS ---
EXAMINATION: CTA chest PE protocol DATE: 10/18/2022 07:31 INDICATION: Left chest pain. TECHNIQUE: Computed tomography angiography (CTA) of the chest was performed with 100 mL Omnipaque-350 intravenous contrast timed to evaluate the pulmonary arteries. Coronal maximum intensity projection 3D-reconstructions were created by the technologist. Automated exposure control and iterative reconst ruction technique were employed. The dose-length product was 847.40 mGy-cm. COMPARISON: Chest CT 12/20/2020, 01/11/2014 FINDINGS: The lungs demonstrate mild atelectasis. No pleural effusion. There is a multinodular goiter , stable from 01/11/2014. The heart size is normal. No pericardial effusion. There are coronary artery calcifications. There is no pulmonary embolus. There are changes of anterior fusion procedure in cer vical spine. There are bridging endplate osteophytes at multiple levels in the spine, consistent with diffuse idiopathic skeletal hyperostosis (DISH). IMPRESSION: 1. No pulmonary embolus. Sensitivity is mildly decreased by motion artifact. Reviewed, dictated and finalized at location A. YTICS CONSULTANT
--- NOTE | 2022-10-18 05:27 | ECG_ITS ---
Measurements Intervals [place] Rate: 78 P: 19 MA: 137 QRS: -53 QRSD: 126 T: 6 QT: 395 QTc: 453 Interpretive Statements SINUS RHYTHM RIGHT BUNDLE BRANCH BLOCK LEFT ANTERIOR FASCICULAR BLOCK VOLTAGE CRITERIA FOR LVH CANNOT RULE OUT SEPTAL INFARCT, AGE INDETERMINATE ABNORMAL ECG BASELINE ARTIFACT- I, II, III, AVR, AVL, AVF COMPARED TO ECG 10/04/2022 13:49:22 NO SIGNIFICANT CHANGES Electronically Signed On 10-18-2022 6:58:53 LATHING SUPERVISOR by Wilbert Olivo D.O.
--- NOTE | 2022-10-18 05:33 | ED.CHESTPAIN ---
HPI - Chest Pain General Chief Complaint: Chest Pain <Rubi Grimes MD - Last Filed: 10/18/22 07:33> Stated Complaint: Chest Pain <Rubi Grimes MD - Last Filed: 10/18/22 07:33> Time Seen by Provider: 10/18/22 05:31 <Rubi Grimes MD - Last Filed: 10/18/22 07:33> Source: patient <Rubi Grimse MD - Last Filed: 10/18/22 07:33> Mode of arrival: ambulatory <Rubi Grimes MD - Last Filed: 10/18/22 07:33> Limitations: no limitations <Rubi Grimes MD - Last Filed: 10/18/22 07:33> History of Present Illness HPI narrative: Patient is a 67-year-old female returning to the emergency department for evaluation of recurrent chest pain and shortness of breath. Patient states that chest pain awakened her this morning at approximately 1 AM from sleep. Patient reports aching, pressure-like pain in the center of her chest with radiation to the back. Patient reports associated nausea and shortness of breath. She does report pain when she takes a deep breath. Patient denies palpitations. She reports mild diaphoresis. She reports chronic lower extremity swelling without unilateral pain or redness. Patient reports recent admission to the hospital, was seen by cardiology and discharged home with follow-up. She denies history of heart attack or cardiac catheterization. Patient does take daily baby aspirin, statin. <Rubi Grimes MD - Last Filed: 10/18/22 07:33> Related Data Home Medications: Home Medications Medication Instructions Recorded Confirmed cholecalciferol (vitamin D3) 125 125 mcg PO DAILY 12/16/20 10/04/22 mcg (5,000 unit) capsule cranberry extract 500 mg capsule 500 mg PO DAILY 12/16/20 10/04/22 (Cranberry Concentrate) ferrous sulfate 27 mg iron tablet 27 mg PO DAILY 10/04/22 10/04/22 fluticasone propionate 50 1 spray intranasal BID 10/04/22 10/04/22 mcg/actuation nasal spray,suspension ibuprofen 200 mg tablet (Advil) 200 mg PO Q6H PRN Pain (Scale 10/04/22 10/04/22 Score 1-3) losartan 100 1 tablet PO DAILY 10/04/22 10/04/22 mg-hydrochlorothiazide 25 mg tablet multivitamin with minerals-folic 2 tablet PO DAILY 10/04/22 10/04/22 acid 200 mcg chewable tablet (Adult Multivitamin Gummies) potassium chloride 10 mEq 10 meq PO DAILY 10/04/22 10/04/22 tablet,extended release(part/cryst) <Rubi Grimes MD - Last Filed: 10/18/22 07:33> Allergies/Adverse Reactions: Allergies Allergy/AdvReac Type Severity Reaction Status Date / Time NSAIDS (Non-Steroidal Allergy Intermediate Verified 01/11/14 15:10 Anti-Inflamma <Rubi Grimes MD - Last Filed: 10/18/22 07:33> Review of Systems Review of Systems: CONSTITUTIONAL: Denies fever, chills EYES: Denies visual changes, redness, or discharge. ENT: Denies rhinorrhea, congestion, sore throat, or otalgia. CARDIOVASCULAR: Reports chest pain without palpitations, reports bilateral lower extremity edema RESPIRATORY: Denies cough, reports shortness of breath GASTROINTESTINAL: Denies abdominal pain, reports nausea without vomiting GENITOURINARY: Denies dysuria or hematuria. SKIN: Denies rash or itching. MUSCULOSKELETAL: Reports middle back pain without radiation of the pain to the lower back, denies other joint pain, or myalgia. NEUROLOGIC: Denies headache, numbness, or weakness. <Rubi Grimes MD - Last Filed: 10/18/22 07:33> [facility] Past Medical History Medical History: Medical History BMI 39.0-39.9,adult Calcific tendinitis of left shoulder Chondrocalcinosis of left knee Gout Hypertension <Rubi Grimes MD - Last Filed: 10/18/22 07:33> Surgical History Surgical History: Surgical History H/O neck surgery 2001, 2007 Dr. Brush , Dr. Mendoza Previous back surgery lower back, 2011, Dr. Mendoza <Rubi Grimes MD - Last Filed: 10/18/22 07:33> Fa
[2022-10-18] MEDS: MORPHINE SULFATE (*CRX) 4 MG/ML INJ IV PUSH ×2 (05:41→07:39)
[2022-10-18] MEDS: ASPIRIN 81 MG CHEWABLE TABLET 324 MG PO (05:41)
[2022-10-18] MEDS: SODIUM CHLORIDE 0.9% IV 1,000 ML 999 ML IV CONT (05:42)
[2022-10-18] MEDS: NITROGLYCERIN SL 0.4 MG TABLET SUBLINGUAL (05:42)
[2022-10-18] MEDS: ONDANSETRON INJ 4 MG/2 ML VIAL IV PUSH (05:42)
[2022-10-18 06:02] LABS: Basophils Percent Auto 0.3 % (0.2-1.2); Eosinophils Absolute Auto 0.2 K/mm3 (0-0.3); Eosinophils Percent Auto 1.4 % (0-4.4); Hematocrit 35.3 % (37.0-47.0); Hemoglobin 11.3 g/dL (12.0-15.0); Immature Granulocyte Absolute 0.05 K/mm3 (0.00-0.031); Immature Granulocyte Percent A 0.4 % (0-0.5); Lymphocytes Absolute Auto 1.51 K/mm3 (0.9-3.2); Lymphocytes Percent Auto 11.8 % (18.3-44.2); Mean Corpuscular Hemoglobin 30.1 pg (26-34); Mean Corpuscular Volume 93.9 fl (80-100); Mean Platelet Volume 9.4 fl (7.4-10.4); Monocytes Absolute Auto 0.6 K/mm3 (0.1-0.6); Monocytes Percent Auto 4.7 % (2.6-8.5); Neutrophils Absolute Auto 10.5 K/mm3 (1.3-6.7); Neutrophils Percent Auto 81.4 % (45.5-73.1); Platelet Count Result 379 k/mm3 (150-375); Red Blood Count 3.76 M/mm3 (4.2-5.4); Red Cell Distribution Width 13.2 % (11.5-14.5); White Blood Count 12.9 K/mm3 (4.5-10.0)
[2022-10-18 06:12] LABS: Alanine Aminotransferase 22 U/L (6-35); Albumin Level 4.5 g/dL (3.5-5.1); Alkaline Phosphatase 76 U/L (38-126); Anion Gap 7 mmol/L (8-16); Aspartate Amino Transferase 24 U/L (14-36); Bilirubin,Total 0.4 mg/dL (0.2-1.3); Blood Urea Nitrogen 20 mg/dL (7-17); Calcium 10.3 mg/dL (8.4-10.2); Carbon Dioxide 26 mmol/L (22-30); Chloride 103 mmol/L (98-107); Estimated CRCL calculation 69 ml/min; Estimated Glomerular Filt Rate > 60; Glucose 124 mg/dL (65-110); Lipase 180 U/L (23-300); Potassium 4.1 mmol/L (3.4-5.0); Sodium 136 mmol/L (137-145)
[2022-10-18 06:14] LABS: INR 1.1; Prothrombin Time 13.3 Seconds (11.1-14.7)
[2022-10-18 06:15] LABS: Partial Thromboplastin Time 30.2 SECONDS (22.3-36.8)
[2022-10-18 06:24] LABS: Troponin I < 0.012 ng/mL (0.000-0.034)
[2022-10-18] MEDS: ONDANSETRON INJ 4 MG/2 ML VIAL (07:39)
[2022-10-18 08:26] LABS: Influenza A QL RT-PCR Negative (Negative); Influenza B QL RT-PCR Negative (Negative); SARS-CoV-2 RNA PCR Negative
[2022-10-18 09:31] LABS: Troponin I < 0.012 ng/mL (0.000-0.034)
--- NOTE | 2022-10-18 11:27 | ADMGEN ---
This patient, Laury Tillman, was admitted to IMU Room 206-02 at 1055 on 10/18/2022. Patient/family oriented to hospital policies and general routines including ID bracelet, bed and alarms, visiting hours, pain management, procedures, bathroom and other care routines, personal items, smoking policy, room service/diet, and visiting hours. Information on how to activate the Rapid Response Team has been discussed. Patient/Family are encouraged to report perceived risks to care and to ask questions if they do not understand what they are told or what they should do.
[2022-10-18 12:19] LABS: Troponin I < 0.012 ng/mL (0.000-0.034)
[2022-10-18] MEDS: ACETAMINOPHEN 325 MG TABLET 650 MG PO ×3 (12:26→23:36)
--- NOTE | 2022-10-18 13:55 | PM.IMHP ---
H&P: HPI History of Present Illness Date/Time: 10/18/22 13:55 Chief Complaint: Chest pain Narrative: Pt admitted with chest pain around 130 am this morning. This time pt describes the chest pain as a chest pressure which woke her up from her sleep. Pt states the chest pain feels worse when she breaths in. Pt states she has been under some stress on as it is anniversary since she lost her son. And it brought back alot of memories. Pt states her chest pain is associated with SOB. Pt was here in the hospital few weeks ago in September with similar complaints, pt had echocardiogram at that time and saw Dr Ghotra cardiology. Pts echo showed ? 2. Left ventricular chamber dimension is normal. ? 3. Left ventricular systolic function is hyperdynamic, estimated at >70%. ? 4. There is no increased left ventricular wall thickness. ? 5. The left ventricular diastolic function is grade I diastolic dysfunction. At that time pt was advised to follow with her own home energy auditor in [facility]. Pt own home energy auditor is in [facility], Dr Nathanael Suazo has recent stress test there in aug 2022 showing - normal perfusion stress test without infarct ischemia in no wall motion abnormality no transient ischemic dilatation. Pt states she has had 3 heart cancerization in the past, heart cath 2009 showed some blockage and has been treated with medical management. So far today serial troponins have been negative, CT PE shows no PE, CXR shows early pneumonia and WCC is elevated. Pt states she prefers to have stress test and heart cath in [facility] if she needs to have it. Review of Systems Review of Systems: Chest pain, SOB, Anxiety Constitutional: Comments: All other 14 systems are reviwed and negative apart from the positives above [facility] Past Medical History Medical History BMI 39.0-39.9,adult Calcific tendinitis of left shoulder Chondrocalcinosis of left knee Gout Hypertension Surgical History Surgical History H/O neck surgery 2001, 2007 Dr. Brush , Dr. Mendoza Previous back surgery lower back, 2011, Dr. Mendoza Family History Family History Sibling Family history of diabetes mellitus in first degree relative Father Family history of heart disease in male family member before age 55 Other Family history of cardiovascular disease Hypertension Social History Social History Smoking status: Former smoker Smoking end date: 11/19/95 Alcohol intake: never Substance use: never Lack of Transportation: No Lack of Food: Never True Current Housing: I Have Housing Concerned About Future Housing: No Difficulty Paying Gas/Electric Bills: No Difficulty Paying for Meds: No Currently Unemployed: No Education: Decline to Answer Difficulty w/ Childcare or Family Care: No Gender identity (if verbalized by the patient): Female Spiritual care concerns: No Meds Home Medications and Allergies Home Medications Medication Instructions Recorded Confirmed Type cholecalciferol (vitamin D3) 125 125 mcg PO DAILY 12/16/20 10/18/22 History mcg (5,000 unit) capsule cranberry extract 500 mg capsule 500 mg PO DAILY 12/16/20 10/18/22 History (Cranberry Concentrate) ferrous sulfate 27 mg iron tablet 27 mg PO DAILY 10/04/22 10/18/22 History fluticasone propionate 50 1 spray intranasal BID 10/04/22 10/18/22 History mcg/actuation nasal spray,suspension ibuprofen 200 mg tablet (Advil) 200 mg PO Q6H PRN Pain (Scale 10/04/22 10/18/22 History Score 1-3) losartan 100 1 tablet PO DAILY 10/04/22 10/18/22 History mg-hydrochlorothiazide 25 mg tablet multivitamin with minerals-folic 2 tablet PO DAILY 10/04/22 10/18/22 History acid 200 mcg chewable tablet (Adult Multivitamin Gummies
--- NOTE | 2022-10-18 16:03 | PM.CNCAR ---
Assessment and Plan Assessment and plan (1) Atypical chest pain: Code(s): R07.89 - Other chest pain Status: Acute Plan Her chest pain is atypical and pleuritic and positional in nature. Troponins are negative and EKG is without ischemic changes. Has chronic RBBB. CT negative for PE. Recent stress test in August showed no abnormalities with normal coronary flow reserve. She does have a mild leukocytosis and elevated D-dimer. Maybe possible pericarditis? Will check ESR and CRP levels. Obtain limited echo to see if there's any pericardial effusion. History of Present Illness History of Present Illness Consult date/time: 10/18/22 16:03 Requesting physician: Stephanie Thornton MD Consult reason: chest pain Reason For Visit: chest pain,dyspnea Narrative: We are being consulted for chest pain. Patient was recently admitted here on 10/04/2022 for evaluation of atypical chest pain. ACS was ruled out at that time with no ischemic EKG changes and negative troponin levels. Echo at that time was normal. At that time, we obtained records from [facility] which indicated on August 31, 2022 normal perfusion stress test without infarct ischemia in no wall motion abnormality no transient ischemic dilatation.? Normal coronary flow reserve.? Coronary calcium score was elevated at 313. Patient states that since that time, her chest pain has been better. She woke up this morning around 1AM with chest pain. Worsens with inspiration. Very positional, however states that sitting up makes it worse and laying down makes it better. Has been constant. Her ECGs here have no ischemic changes, chronic RBBB. Troponins are negative. Mild leukocytosis. Elevated D-dimer - CTA was done which was negative for PE. Review of Systems Review of Systems: 12-point ROS obtained. Negative, unless stated in HPI. [facility] Past Medical History Medical History BMI 39.0-39.9,adult Calcific tendinitis of left shoulder Chondrocalcinosis of left knee Gout Hypertension Surgical History Surgical History H/O neck surgery 2001, 2007 Dr. Brush , Dr. Mendoza Previous back surgery lower back, 2011, Dr. Mendoza Family History Family History Sibling Family history of diabetes mellitus in first degree relative Father Family history of heart disease in male family member before age 55 Other Family history of cardiovascular disease Hypertension Social History Social History Smoking status: Former smoker Smoking end date: 11/19/95 Alcohol intake: never Substance use: never Lack of Transportation: No Lack of Food: Never True Current Housing: I Have Housing Concerned About Future Housing: No Difficulty Paying Gas/Electric Bills: No Difficulty Paying for Meds: No Currently Unemployed: No Education: Decline to Answer Difficulty w/ Childcare or Family Care: No Gender identity (if verbalized by the patient): Female Spiritual care concerns: No Meds Home Medications and Allergies Home Medications Medication Instructions Recorded Confirmed Type cholecalciferol (vitamin D3) 125 125 mcg PO DAILY 12/16/20 10/18/22 History mcg (5,000 unit) capsule cranberry extract 500 mg capsule 500 mg PO DAILY 12/16/20 10/18/22 History (Cranberry Concentrate) ferrous sulfate 27 mg iron tablet 27 mg PO DAILY 10/04/22 10/18/22 History fluticasone propionate 50 1 spray intranasal BID 10/04/22 10/18/22 History mcg/actuation nasal spray,suspension ibuprofen 200 mg tablet (Advil) 200 mg PO Q6H PRN Pain (Scale 10/04/22 10/18/22 History Score 1-3) losartan 100 1 tablet PO DAILY 10/04/22 10/18/22 History mg-hydrochlorothiazide 25 mg tablet multivitamin with minerals-folic 2 tablet PO DAILY 10/04/22 10/18/22 History acid 200 mcg c
[2022-10-18 17:57] LABS: CRP 5.9 mg/dL (<1.0)
[2022-10-18 18:06] LABS: Erythrocyte Sedimentation Rate 85 mm/hr (0-20)
[2022-10-18] MEDS: FLUTICASONE PROPIONATE 0.05% NA SPR 16 GM BTL (*BKC) 1 SPRAY NASAL (21:44)
[2022-10-19 03:29] VITALS: BP 120/59; PULSE 100; RESP 20; TEMP 36.4; O2SAT 94
[2022-10-19 05:28] VITALS: BP 127/59; PULSE 77; RESP 20; TEMP 36.8; O2SAT 94
[2022-10-19] MEDS: POTASSIUM CHLORIDE 10 MEQ TABLET.ER PO (08:28)
[2022-10-19] MEDS: LOSARTAN POTASSIUM 100 MG TABLET PO (08:28)
[2022-10-19] MEDS: FERROUS SULFATE DRIED 142 MG TABCR PO (08:28)
[2022-10-19] MEDS: hydroCHLOROthiazide 25 MG TABLET PO (08:29)
[2022-10-19] MEDS: AZITHROMYCIN 250 MG TABLET 500 MG PO (08:32)
--- NOTE | 2022-10-19 09:28 | PM.PNCARD ---
Progress Note: A&P Assessment and Plan (1) Atypical chest pain: Code(s): R07.89 - Other chest pain Status: Acute Plan Her chest pain is atypical and pleuritic and positional in nature. Troponins are negative and EKG is without ischemic changes. Has chronic RBBB. CT negative for PE. Recent stress test in August showed no abnormalities with normal coronary flow reserve. ESR and CRP were checked and are both elevated. Trivial pericardial effusion on echo. Suspect pericarditis. Recommend to treat with ibuprofen 600mg t.i.d for 1 week with a 200mg weekly taper and colchicine 0.6mg b.i.d for 3 months (no taper). Would also recommend PPI while she is taking high dose NSAID. She should follow up with her biometrics experimentalist within 2 weeks of discharge. Subjective Date/time seen: 10/19/22 09:28 Cardiology follow up for chest pain She is feeling much better this morning and states she is ready to leave the hospital. Does still describe some chest discomfort but not the sharp pain she had when she came in. No shortness of breath. Review of Systems Review of Systems: All systems reviewed & are unremarkable except as noted in HPI and below Exam Const: General: no acute distress HENMT: Mouth: Yes moist mucous membranes Eyes: General: appearance normal, both eyes and all related structures Sclera: sclerae normal Neck: Neck: supple Resp: Effort & Inspection: normal respiratory effort Auscultation: clear to auscultation bilaterally Cardio: Rate: regular rate Rhythm: regular rhythm Heart sounds: no murmurs Skin: General skin exam: normal color Neuro: Speech: normal speech Extrem: General: normal to inspection Other: no edema Psych: Mental Status: mental status grossly normal Affect: normal affect Objective Data Vital Signs Vital Signs: Vital Signs - 24 hr 10/18/22 10:50 10/18/22 09:50 10/18/22 10:09 Temperature Pulse Rate 80 89 Respiratory Rate 18 17 17 Blood Pressure Pulse Oximetry 100 Oxygen Delivery 10/18/22 10:15 10/18/22 10:16 10/18/22 10:30 Temperature Pulse Rate 86 85 87 Respiratory Rate 17 16 22 H Blood Pressure 144/68 H Pulse Oximetry Oxygen Delivery 10/18/22 10:31 10/18/22 12:00 10/18/22 12:00 Temperature 36.4 C Pulse Rate 86 87 93 Respiratory Rate 20 12 Blood Pressure 156/76 H 146/71 H Pulse Oximetry 96 Oxygen Delivery 10/18/22 14:00 10/18/22 12:00 10/18/22 16:00 Temperature 36.8 C Pulse Rate 92 79 Respiratory Rate 12 Blood Pressure 146/49 H Pulse Oximetry 95 Oxygen Delivery Room Air 10/18/22 20:00 10/18/22 23:52 10/18/22 20:00 Temperature 36.6 C 36.5 C Pulse Rate 108 H 95 Respiratory Rate 16 18 Blood Pressure 134/50 L 120/56 L Pulse Oximetry 91 93 Oxygen Delivery Room Air 10/19/22 03:29 10/19/22 05:28 Temperature 36.4 C L 36.8 C Pulse Rate 100 77 Respiratory Rate 20 20 Blood Pressure 120/59 L 127/59 L Pulse Oximetry 94 94 Oxygen Delivery Intake/Output Intake/Output: Intake & Output 10/16/22 10/17/22 10/18/22 10/19/22 23:59 23:59 23:59 23:59 Intake Total 1440 Output Total 65 Balance 1440 -65 Meds/Results Medications: Active Medications Generic Name Dose Route Start Last Admin Trade Name Freq PRN Reason Stop Dose Admin Acetaminophen 650 mg 10/18/22 09:21 10/18/22 23:36 Acetaminophen 325 Mg Tablet PO 650 mg Q4H PRN Administration Mild Pain (1-3) or Fever Atorvastatin Calcium 20 mg 10/19/22 09:00 10/19/22 08:29 Atorvastatin 20 Mg Tablet PO Not Given DAILY [facility] Azithromycin 500 mg 10/19/22 09:00 10/19/22 08:32 Azithromycin 250 Mg Tablet PO 500 mg DAILY [facility] Administration Enoxaparin Sodium 40 mg 10/19/22 09:00 10/19/22 08:31 Enoxaparin 40 Mg/0.4 Ml Syringe SUB-Q Not Given DAILY [facility] Ferrous Sulfate 142 mg 10/19/22 08:00 10/19/22 08:28 Ferrous Sulfate Dried 142 Mg Tabcr PO 142 mg DAILY@0800 [facility] Ad
[2022-10-19] MEDS: IBUPROFEN 600 MG TABLET PO (11:32)
--- NOTE | 2022-10-19 11:47 | PM.DS ---
DS: Admitting Diagnosis Discharge Date October 19, 2022 Admitting Diagnosis pericarditis DS: Discharge Diagnosis Discharge Diagnosis (1) Atypical chest pain: Code(s): R07.89 - Other chest pain Status: Acute Assessment and Plan: Pt presenting again with chest pain Continue to monitor in hospital overnite Await cardiology consult Pt has morphine and NTG prn severe chest pain (2) Dyspnea: Code(s): R06.00 - Dyspnea, unspecified Status: Acute Assessment and Plan: Cxr shows early pneumonia Wcc are 12.6 Plan to treat with oral antibiotics and see if patient SOB feels better Oxygen avaliable PRN (3) CAD (coronary artery disease): Code(s): I25.10 - Atherosclerotic heart disease of [place] coronary artery without angina pectoris Status: Acute Assessment and Plan: Pt has history of CAD Pt is treated medically with ASA and blood pressure medications do not see statin on her home medications 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 Has had negative workup recently. Cardiology evaluated the patient and suspected pericarditis. She will be sent home on NSAIDs and colchicine x3 months. She is feeling much better today and can be discharged. Time Spent with Patient Time attestation: Total time spent providing and/or coordinating discharge services: Exam Narrative: GENERAL: Overweight anxious lady HEAD: Normocephalic, atraumatic. EYES: PERRLA and EOMI. ENT: Nares clear, no rhinorrhea or epistaxis. Mucous membranes moist. NECK: Supple. CHEST: No respiratory distress, breathing even and non labored, chest wall tenderness to palpation HEART: Regular rate, sinus rhythm, no murmurs, rubs, gallops ABDOMEN:Non distended, non tender EXTREMITIES: Normal range of motion. Nonpitting edema, bilaterally to the mid shins SKIN: Warm, dry, no rash. NEURO:No focal deficits. Alert and oriented x3 DS: Data Data Completed and Pending Labs on day of discharge: Labs from last 24 hours 10/18/22 10/18/22 10/18/22 17:13 17:13 11:45 ESR 85 H Troponin I < 0.012 C-Reactive Protein 5.9 H Discharge Plan Discharge Attending physician on discharge: Jamil Lu Consulting providers: Alphonso Bojorquez Discharging Clinician: Jamil Lu Patient Disposition: Home, Self-Care Activity: no preference Diet: as tolerated Patient Instructions: Antibiotic Form, Acute Pericarditis (GEN), Pericardial Effusion (GEN) Stand Alone Forms: General Discharge Information Follow-up/Referrals: Alphonso Bojorquez MD [Physician] - Discharge Medications: New atorvastatin 20 mg Tablet 20 mg PO DAILY 30 Days Qty: 30 0RF ibuprofen 600 mg Tablet 600 mg PO Q8H 7 Days Qty: 21 0RF colchicine [Colcrys] 0.6 mg Tablet 0.6 mg PO Q12HR 90 Days Qty: 180 0RF Continued cranberry extract [Cranberry Concentrate] 500 mg capsule 500 mg PO DAILY cholecalciferol (vitamin D3) 125 mcg (5,000 unit) capsule 125 mcg PO DAILY losartan-hydrochlorothiazide 100-25 mg tablet 1 tablet PO DAILY ibuprofen [Advil] 200 mg Tablet 200 mg PO Q6H PRN (Reason: Pain (Scale Score 1-3)) fluticasone propionate 50 mcg/actuation [place],Suspension 1 spray INTRANASAL BID Rx Instructions: administer into each nostril potassium chloride 10 mEq tablet,ER particles/crystals 10 meq PO DAILY ferrous sulfate 27 mg iron Tablet 27 mg PO DAILY Adult Multivitamin Gummies 200 mcg Tablet,Chewable 2 tablet PO DAILY Date of admission: 10/18/22 09:22 Primary Care Provider: UNKNOWN,DOCTOR Admitting Provider: Jah Lu
== END 2022-10-19 12:20 | disposition home or self-care (01) ==
LOC: ANHED 08:45 → ANHIMU 10:19 → ANH3MEDSUR 10-19 03:18
PROVIDERS: Emergency Medicine; Internal Medicine; Admitting Provider Chiropractor; Emergency Provider Emergency Medicine; PCP Internal Medicine; Visit Provider Chiropractor
DX: R07.89 Other chest pain (principal); R06.00 Dyspnea, unspecified; I25.10 Atherosclerotic heart disease of native coronary artery without angina pectoris; I11.9 Hypertensive heart disease without heart failure; R11.0 Nausea; R61 Generalized hyperhidrosis; M11.262 Other chondrocalcinosis, left knee; M10.9 Gout, unspecified; Z20.822 Contact with and (suspected) exposure to COVID-19; F41.9 Anxiety disorder, unspecified; R91.8 Other nonspecific abnormal finding of lung field; I34.81 Nonrheumatic mitral (valve) annulus calcification; I45.2 Bifascicular block; I36.1 Nonrheumatic tricuspid (valve) insufficiency; R94.31 Abnormal electrocardiogram [ECG] [EKG]; R79.82 Elevated C-reactive protein (CRP); R70.0 Elevated erythrocyte sedimentation rate; E66.3 Overweight; Z68.38 Body mass index [BMI] 38.0-38.9, adult; Z87.891 Personal history of nicotine dependence; Z79.1 Long term (current) use of non-steroidal anti-inflammatories (NSAID); Z79.82 Long term (current) use of aspirin; Z79.51 Long term (current) use of inhaled steroids; Z79.899 Other long term (current) drug therapy
CPT/HCPCS: 36415; 71046; 71275; 80053; 83690; 84484; 85025; 85380; 85610; 85652; 85730; 86140; 87636; 93005; 93308; 96361; 96374; 96375; 96376; 99285; A9270; G0378; J0696; J2270; J2405; J7030; Q9967

== ENCOUNTER 2022-12-09 11:53 | Emergency (ER) | payer MEDICARE, SELFPAY ==
[2022-12-09] VITALS (8 sets, daily range): BP systolic 105–124; BP diastolic 66–78; PULSE 90–110; RESP 14–20; TEMP 36.3; O2SAT 94–100
--- NOTE | ~2022-12-09 | CT_ITS ---
EXAMINATION: CTA chest PE protocol DATE: 12/09/2022 14:27 INDICATION: chest pain, tachycardia TECHNIQUE: Computed tomography angiography (CTA) of the chest was performed with 100 mL Omnipaque-350 intravenous contrast timed to evaluate the pulmonary arteries. Coronal maximum intensity projection 3D-reconstructions were created by the technologist. The dose-length product (DLP) was 585.36 mGy-cm. Automated exposure control and iterative reconstruction technique were employed. COMPARISON: 10/18/2022. FINDINGS: Lung parenchyma and airways: Bibasilar scar and/or atelectasis.. Pleura: Unremarkable. Thoracic inlet, axillae and chest wall: Multinodular goiter.. Thoracic aorta: Ascending aortic ectasia. Mild arch calcification. Mediastinum: Normal. Heart and pericardium: Mild cardiomegaly. Intermediate density moderate volume pericardial fluid gera ection. Coronary artery calcifications: Moderate. Upper abdomen: No significant finding. Bones: No acute osseous finding. Pulmonary arteries: Study quality: Adequate. No pulmonary emboli detected. IMPRESSION: No CT evidence of acute pulmonary embolus. Moderate pericardial effusion. Reviewed, dictated and finalized at location K. ULE FILLER
--- NOTE | ~2022-12-09 | XR_ITS ---
EXAMINATION: XR chest 2V DATE: 12/09/2022 12:27 INDICATION: Right chest pain. Shortness of breath and cough. Fever. TECHNIQUE: Frontal and lateral views of the chest were obtained. COMPARISON: Chest 2 views 10/18/2022, chest CT 10/18/2022 FINDINGS: There is mild atelectasis in the lower lung zones. No pleural effusion or pneumothorax. The heart size is normal. There are changes of anterior fusion procedures in cervical spine. IMPRESSION: 1. Mild atelectasis in the lower lung zones. Reviewed, dictated and finalized at location A. OW CLEANER
--- NOTE | 2022-12-09 11:58 | ECG_ITS ---
Measurements Intervals [place] Rate: 108 P: 13 IN: 147 QRS: -51 QRSD: 123 T: 72 QT: 327 QTc: 440 Interpretive Statements SINUS TACHYCARDIA RIGHT BUNDLE BRANCH BLOCK LEFT ANTERIOR FASCICULAR BLOCK MINIMAL Q WAVES- HIGH LATERAL LEADS ABNORMAL ECG COMPARED TO ECG 10/18/2022 05:31:27 SINUS TACHYCARDIA NOW PRESENT Electronically Signed On 12-09-2022 17:20:01 HEALTH IT SPECIALIST by Wilbert Olivo D.O.
[2022-12-09 12:20] LABS: Basophils Absolute Auto 0.1 K/mm3 (0.0-0.1); Basophils Percent Auto 0.3 % (0.2-1.2); Eosinophils Absolute Auto 0.1 K/mm3 (0-0.3); Eosinophils Percent Auto 0.6 % (0-4.4); Hematocrit 32.1 % (37.0-47.0); Hemoglobin 10.2 g/dL (12.0-15.0); Immature Granulocyte Absolute 0.09 K/mm3 (0.00-0.031); Immature Granulocyte Percent A 0.6 % (0-0.5); Lymphocytes Absolute Auto 2.12 K/mm3 (0.9-3.2); Lymphocytes Percent Auto 13.2 % (18.3-44.2); Mean Corpuscular HGB Conc 31.8 g/dl (32-36); Mean Corpuscular Hemoglobin 29.6 pg (26-34); Mean Platelet Volume 8.6 fl (7.4-10.4); Monocytes Absolute Auto 1.1 K/mm3 (0.1-0.6); Neutrophils Absolute Auto 12.6 K/mm3 (1.3-6.7); Neutrophils Percent Auto 78.3 % (45.5-73.1); Platelet Count Result 460 k/mm3 (150-375); Red Blood Count 3.45 M/mm3 (4.2-5.4); Red Cell Distribution Width 13.2 % (11.5-14.5)
[2022-12-09 12:31] LABS: INR 1.2
[2022-12-09 12:32] LABS: Partial Thromboplastin Time 40.4 SECONDS (22.3-36.8)
[2022-12-09 12:37] LABS: Alanine Aminotransferase 18 U/L (6-35); Albumin Level 4.2 g/dL (3.5-5.1); Alkaline Phosphatase 94 U/L (38-126); Anion Gap 7 mmol/L (8-16); Aspartate Amino Transferase 22 U/L (14-36); Bilirubin,Total 0.5 mg/dL (0.2-1.3); Blood Urea Nitrogen 20 mg/dL (7-17); Calcium 9.2 mg/dL (8.4-10.2); Carbon Dioxide 29 mmol/L (22-30); Chloride 96 mmol/L (98-107); Estimated Glomerular Filt Rate 50; Glucose 116 mg/dL (65-110); Lipase 141 U/L (23-300); Sodium 132 mmol/L (137-145)
[2022-12-09 12:48] LABS: Troponin I < 0.012 ng/mL (0.000-0.034)
--- NOTE | 2022-12-09 13:22 | ED.CHESTPAIN ---
HPI - Chest Pain General Chief Complaint: Chest Pain Stated Complaint: chest pain Time Seen by Provider: 12/09/22 13:19 History of Present Illness HPI narrative: Patient is a 67-year-old female with a history of hypertension, hyperlipidemia presenting with chest pain. Patient states that she was seen at urgent care earlier this week due to chest tightness and coughing. She was started on antibiotics which has not improved any of her symptoms. States that her chest pain has continued. Describes it as a tightness. States its associated with shortness of breath that is worse with exertion. She denies fevers, lightheadedness, numbness or weakness, abdominal pain, nausea or vomiting, diarrhea, leg swelling. Patient's dopster is at [facility] Dr. Britton Suazo. Related Data Home Medications Medication Instructions Recorded Confirmed cholecalciferol (vitamin D3) 125 125 mcg PO DAILY 12/16/20 10/18/22 mcg (5,000 unit) capsule cranberry extract 500 mg capsule 500 mg PO DAILY 12/16/20 10/18/22 (Cranberry Concentrate) ferrous sulfate 27 mg iron tablet 27 mg PO DAILY 10/04/22 10/18/22 fluticasone propionate 50 1 spray intranasal BID 10/04/22 10/18/22 mcg/actuation nasal spray,suspension ibuprofen 200 mg tablet (Advil) 200 mg PO Q6H PRN Pain (Scale 10/04/22 10/18/22 Score 1-3) losartan 100 1 tablet PO DAILY 10/04/22 10/18/22 mg-hydrochlorothiazide 25 mg tablet multivitamin with minerals-folic 2 tablet PO DAILY 10/04/22 10/18/22 acid 200 mcg chewable tablet (Adult Multivitamin Gummies) potassium chloride 10 mEq 10 meq PO DAILY 10/04/22 10/18/22 tablet,extended release(part/cryst) Allergies Allergy/AdvReac Type Severity Reaction Status Date / Time NSAIDS (Non-Steroidal Allergy Intermediate Swelling Verified 12/09/22 14:31 Anti-Inflamma Review of Systems Review of Systems: All systems reviewed & are unremarkable except as noted in HPI and below PMFSH Past Medical History Medical History BMI 39.0-39.9,adult Calcific tendinitis of left shoulder Chondrocalcinosis of left knee Gout Hypertension Surgical History Surgical History H/O neck surgery 2001, 2007 Dr. Brush , Dr. Mendoza Previous back surgery lower back, 2011, Dr. Mendoza Family History Family History Sibling Family history of diabetes mellitus in first degree relative Father Family history of heart disease in male family member before age 55 Other Family history of cardiovascular disease Hypertension Social History Social History Smoking status: Former smoker Smoking end date: 11/19/95 Alcohol intake: never Substance use: never Lack of Transportation: No Lack of Food: Never True Current Housing: I Have Housing Concerned About Future Housing: No Difficulty Paying Gas/Electric Bills: No Difficulty Paying for Meds: No Currently Unemployed: No Education: Decline to Answer Difficulty w/ Childcare or Family Care: No Gender identity (if verbalized by the patient): Female Spiritual care concerns: No Exam Narrative: GENERAL: Appears fatigued, in no acute distress HEAD: Normocephalic, atraumatic. EYES: PERRLA and EOMI. ENT: Nares clear, no rhinorrhea or epistaxis. Mucous membranes moist. NECK: Supple. CHEST: Clear to auscultation. No respiratory distress. HEART: Regular rate and rhythm. Normal peripheral pulses. ABDOMEN: Soft, nontender, nondistended, normal active bowel sounds. EXTREMITIES: Normal range of motion. No edema. SKIN: Warm, dry, no rash. NEURO: No focal deficits. Alert and oriented x3. PSYCH: Normal mood and affect. Course Vital Signs Vital signs: Vital Signs Temperature 97.4 F L 12/09/22 12:02 Pulse Rate 110 H 12/09/22 12:02 Respiratory R
[2022-12-09] MEDS: SODIUM CHLORIDE 0.9% IV 1,000 ML 999 ML IV CONT (13:59)
[2022-12-09 15:44] LABS: Troponin I < 0.012 ng/mL (0.000-0.034)
== END 2022-12-09 16:30 | disposition home or self-care (01) ==
PROVIDERS: Emergency Medicine; Emergency Provider Emergency Medicine; PCP Internal Medicine
DX: R07.9 Chest pain, unspecified (principal); I31.39 Other pericardial effusion (noninflammatory); E78.5 Hyperlipidemia, unspecified; I10 Essential (primary) hypertension; Z87.891 Personal history of nicotine dependence
CPT/HCPCS: 36415; 71046; 71275; 80053; 83690; 84484; 85025; 85610; 85730; 93005; 96361; 96374; 99284; J0131; J7030; Q9967

== ENCOUNTER 2022-12-11 10:12 | Emergency (ER) | payer MEDICARE, SELFPAY ==
--- NOTE | ~2022-12-11 | XR_ITS ---
Clinical Indication: Chest pain PA and lateral views of the chest: Comparison: 12/09/2022 Findings: There is minimal bibasilar pulmonary edema/atelectatic change. No pleural effusion. Cardio mediastinal silhouette is within normal limits. Bones and soft tissues are unremarkable. Impression: Minimal bibasilar pulmonary edema/atelectatic change. Reviewed, dictated and finalized at location . BENDER Impression: Minimal bibasilar pulmonary edema/atelectatic change.
[2022-12-11 10:37] VITALS: BP 146/75; PULSE 116; RESP 18; TEMP 37.3; O2SAT 96
--- NOTE | 2022-12-11 10:40 | ECG_ITS ---
Measurements Intervals [place] Rate: 100 P: 7 IN: 120 QRS: -47 QRSD: 127 T: 58 QT: 366 QTc: 474 Interpretive Statements SINUS TACHYCARDIA POSSIBLE LEFT ATRIAL ENLARGEMENT RIGHT BUNDLE BRANCH BLOCK LEFT ANTERIOR FASCICULAR BLOCK LEFT VENTRICULAR HYPERTROPHY WITH ST-T CHANGE MINIMAL Q WAVES- HIGH LATERAL LEADS ABNORMAL ECG COMPARED TO ECG 12/09/2022 12:04:58 NO SIGNIFICANT CHANGES Electronically Signed On 12-11-2022 11:06:04 BIOSTATISTICS MANAGER by Wilbert Olivo D.O.
[2022-12-11 11:00] LABS: Basophils Absolute Auto 0.1 K/mm3 (0.0-0.1); Basophils Percent Auto 0.2 % (0.2-1.2); Hematocrit 30.5 % (37.0-47.0); Hemoglobin 9.9 g/dL (12.0-15.0); Immature Granulocyte Absolute 0.12 K/mm3 (0.00-0.031); Immature Granulocyte Percent A 0.5 % (0-0.5); Lymphocytes Absolute Auto 1.44 K/mm3 (0.9-3.2); Lymphocytes Percent Auto 6.4 % (18.3-44.2); Mean Corpuscular HGB Conc 32.5 g/dl (32-36); Mean Corpuscular Volume 92.4 fl (80-100); Monocytes Absolute Auto 1.2 K/mm3 (0.1-0.6); Monocytes Percent Auto 5.4 % (2.6-8.5); Neutrophils Absolute Auto 19.8 K/mm3 (1.3-6.7); Neutrophils Percent Auto 87.5 % (45.5-73.1); Platelet Count Result 622 k/mm3 (150-375); Red Cell Distribution Width 13.3 % (11.5-14.5); White Blood Count 22.6 K/mm3 (4.5-10.0)
[2022-12-11 11:11] LABS: Alanine Aminotransferase 23 U/L (6-35); Albumin Level 4.1 g/dL (3.5-5.1); Alkaline Phosphatase 102 U/L (38-126); Anion Gap 10 mmol/L (8-16); Aspartate Amino Transferase 23 U/L (14-36); Bilirubin,Total 0.5 mg/dL (0.2-1.3); Blood Urea Nitrogen 19 mg/dL (7-17); Calcium 9.5 mg/dL (8.4-10.2); Carbon Dioxide 26 mmol/L (22-30); Chloride 99 mmol/L (98-107); Estimated Glomerular Filt Rate > 60; Glucose 163 mg/dL (65-110); Lipase 79 U/L (23-300); Potassium 4.2 mmol/L (3.4-5.0); Sodium 135 mmol/L (137-145)
[2022-12-11 11:17] LABS: INR 1.3; Prothrombin Time 15.2 Seconds (11.1-14.7)
[2022-12-11 11:18] LABS: Partial Thromboplastin Time 35.7 SECONDS (22.3-36.8)
[2022-12-11 11:23] LABS: Troponin I < 0.012 ng/mL (0.000-0.034)
--- NOTE | 2022-12-11 12:56 | ED.CHESTPAIN ---
HPI - Chest Pain General Chief Complaint: Chest Pain Stated Complaint: fluid around heart Time Seen by Provider: 12/11/22 12:34 History of Present Illness HPI narrative: This is a 67-year-old female with past medical history of hypertension hyperlipidemia, return to the emergency department complaining of chest pain. She was seen here in September and diagnosed with pericarditis. She was seen 3 days ago with worsening of her pain but opted for discharge. Overnight last night, she complained of 10/10 sharp chest pain that did not radiate. This was associated with pain on deep breathing. She denies loss of consciousness, leg swelling or other difficulty breathing. She states she is taking steroids as prescribed. Related Data Home Medications Medication Instructions Recorded Confirmed cholecalciferol (vitamin D3) 125 125 mcg PO DAILY 12/16/20 10/18/22 mcg (5,000 unit) capsule cranberry extract 500 mg capsule 500 mg PO DAILY 12/16/20 10/18/22 (Cranberry Concentrate) ferrous sulfate 27 mg iron tablet 27 mg PO DAILY 10/04/22 10/18/22 fluticasone propionate 50 1 spray intranasal BID 10/04/22 10/18/22 mcg/actuation nasal spray,suspension ibuprofen 200 mg tablet (Advil) 200 mg PO Q6H PRN Pain (Scale 10/04/22 10/18/22 Score 1-3) losartan 100 1 tablet PO DAILY 10/04/22 10/18/22 mg-hydrochlorothiazide 25 mg tablet multivitamin with minerals-folic 2 tablet PO DAILY 10/04/22 10/18/22 acid 200 mcg chewable tablet (Adult Multivitamin Gummies) potassium chloride 10 mEq 10 meq PO DAILY 10/04/22 10/18/22 tablet,extended release(part/cryst) Allergies Allergy/AdvReac Type Severity Reaction Status Date / Time NSAIDS (Non-Steroidal Allergy Intermediate Swelling Verified 12/11/22 13:03 Anti-Inflamma Review of Systems Review of Systems: CONSTITUTIONAL: Denies fever, chills, or sweats. EYES: Denies visual changes, redness, or discharge. ENT: Denies rhinorrhea, congestion, sore throat, or otalgia. CARDIOVASCULAR: Chest pain, palpitations, denies or edema. RESPIRATORY: Denies cough or dyspnea. GASTROINTESTINAL: Denies abdominal pain, nausea, vomiting, or diarrhea. GENITOURINARY: Denies dysuria or hematuria. SKIN: Denies rash or itching. MUSCULOSKELETAL: Denies back pain, joint pain, or myalgia. NEUROLOGIC: Denies headache, numbness, dizziness, or weakness. PSYCHIATRIC: Denies anxiety or depression. [facility] Past Medical History Medical History (Updated 12/11/22 @ 16:19 by Nicholas Mariee MD) BMI 39.0-39.9,adult Calcific tendinitis of left shoulder Chondrocalcinosis of left knee Gout Hypertension Pericarditis Surgical History Surgical History H/O neck surgery 2001, 2007 Dr. Brush , Dr. Mendoza Previous back surgery lower back, 2011, Dr. Mendoza Family History Family History Sibling Family history of diabetes mellitus in first degree relative Father Family history of heart disease in male family member before age 55 Other Family history of cardiovascular disease Hypertension Social History Social History Smoking status: Former smoker Smoking end date: 11/19/95 Alcohol intake: never Substance use: never Lack of Transportation: No Lack of Food: Never True Current Housing: I Have Housing Concerned About Future Housing: No Difficulty Paying Gas/Electric Bills: No Difficulty Paying for Meds: No Currently Unemployed: No Education: Decline to Answer Difficulty w/ Childcare or Family Care: No Gender identity (if verbalized by the patient): Female Spiritual care concerns: No Exam Narrative: GENERAL: Well-appearing, well-nourished, appears uncomfortable HEAD: Normocephalic, atraumatic. EYES: PERRLA and EOMI. ENT: Nares clear, no rhinorrhea or epistaxis. Mucous membranes moist. Oropharynx without
[2022-12-11 13:00] VITALS: BP 160/70; PULSE 109; RESP 24; O2SAT 97
[2022-12-11] MEDS: MORPHINE SULFATE (*CRX) 4 MG/ML INJ IV PUSH (13:39)
[2022-12-11] MEDS: ONDANSETRON INJ 4 MG/2 ML VIAL IV PUSH (13:39)
[2022-12-11 14:00] VITALS: BP 142/78; PULSE 102; RESP 22; O2SAT 97
[2022-12-11 14:30] VITALS: BP 152/79; PULSE 100; RESP 20; O2SAT 96
[2022-12-11 14:40] LABS: SARS-CoV-2 RNA PCR Negative
[2022-12-11 15:19] VITALS: BP 144/70; PULSE 108; RESP 18; O2SAT 95
== END 2022-12-11 15:15 | disposition home or self-care (01) ==
PROVIDERS: Emergency Medicine; Emergency Provider Preventive Medicine Aerospace Medicine; PCP Internal Medicine
DX: I31.9 Disease of pericardium, unspecified (principal); R00.0 Tachycardia, unspecified; Z20.822 Contact with and (suspected) exposure to COVID-19; I10 Essential (primary) hypertension; E78.5 Hyperlipidemia, unspecified; M10.9 Gout, unspecified; Z87.891 Personal history of nicotine dependence; I45.2 Bifascicular block; R94.31 Abnormal electrocardiogram [ECG] [EKG]
CPT/HCPCS: 36415; 71046; 80053; 83690; 84484; 85025; 85610; 85730; 93005; 96374; 96375; 99284; J2270; J2405; U0003; U0005

== ENCOUNTER 2022-12-18 10:02 | Observation (INO) | payer MEDICARE, SELFPAY ==
[2022-12-18] VITALS (8 sets, daily range): BP systolic 109–158; BP diastolic 48–62; PULSE 75–99; RESP 16–18; TEMP 36.6–36.8; O2SAT 94–100
--- NOTE | 2022-12-18 | ECHOL_ITS ---
Patient Info Name: Laury Tillman Age: 67 years : 1955 Gender: Female Ht: 66 in Wt: 231 lbs BSA: 2.26 m2 HR: 82 bpm BP: 118 / 60 mmHg Heart Rhythm: Sinus Rhythm Technical Quality: Fair Exam Date: 12/18/2022 3:53 PM Exam Location: [facility] Pulmonary Exam Room: 252 Patient Status: Inpatient Admit Date: 12/18/2022 Staff Ordering Physician: Marian Stern PA-C Cell Tester: Nurys Bryant RDCS Attending Provider: Alphonso Bojorquez MD Referring Physician: Jarred ALVARADO; Exam Type: CA echo limited Study Info Indications - pericarditis dyspnea r/o effusion Limited two-dimensional transthoracic echocardiogram is performed. Summary 1. Limited study done. 2. Left ventricular chamber dimension is normal. 3. Left ventricular systolic function is normal, estimated at 65-70%. 4. Right ventricular systolic function is normal. 5. Normal inferior vena cava with >50% collapse upon inspiration consistent with normal right atrial pressure, 3 mmHg. 6. There is small anterior pericardial effusion without echocardiographic evidence of tamponade. Left Ventricle Left ventricular chamber dimension is normal. Left ventricular systolic function is normal, estimated at 65-70%. Right Ventricle Right ventricular chamber dimension is normal. Right ventricular systolic function is normal. Aortic Valve There is mild aortic valve sclerosis. Mitral Valve The mitral valve annulus is moderately calcified. Pericardium/Pleural There is small anterior pericardial effusion without echocardiographic evidence of tamponade. Inferior Vena Cava Normal inferior vena cava with >50% collapse upon inspiration consistent with normal right atrial pressure, 3 mmHg. Tricuspid Valve Name Value Normal Estimated PAP/RSVP RA Pressure 3 mmHg <=5 Report Signatures
--- NOTE | ~2022-12-18 | US_ITS ---
EXAMINATION: US carotid duplex BI DATE: 12/19/2022 08:20 INDICATION: Carotid bruits. TECHNIQUE: Grayscale, color Doppler, and pulsed Doppler images of the cervical carotid arteries were obtained. The degree of vessel stenosis is placed in one of the following categories: normal, <50%, 5 0-69%, >=70% but less than near-occlusion, near-occlusion, or total occlusion. Note that percent sten osis relative to normal distal artery lumen diameter is indirectly measured from velocity measurement s as described by Oleg, et al. Radiology 2003; 229:340-346. COMPARISON: None. FINDINGS: RIGHT: The right common carotid artery (CCA) peak systolic velocity (PSV) is 74 cm/s. The right internal car otid artery (ICA) PSV is 69 cm/s. The right ICA end-diastolic velocity (EDV) is 21 cm/s. The right IC A/CCA PSV ratio is 0.9. Grayscale and color Doppler images yield an estimate of <50% diameter reducti on from plaque in the ICA. There is antegrade flow in the right vertebral artery. LEFT: The left CCA PSV is 91 cm/s. The left ICA PSV is 94 cm/s. The left ICA EDV is 28 cm/s. The left ICA/C CA PSV ratio is 1.0. Grayscale and color Doppler images yield an estimate of <50% diameter reduction from plaque in the ICA. There is antegrade flow in the left vertebral artery. IMPRESSION: 1. <50% stenosis in the right internal carotid artery. 2. <50% stenosis in the left internal carotid artery. Reviewed, dictated and finalized at location A. TYPEWRITER INSTALLER
--- NOTE | ~2022-12-18 | XR_ITS ---
EXAMINATION: XR chest 2V DATE: 12/18/2022 10:51 INDICATION: Dyspnea. Chest tightness. TECHNIQUE: Frontal and lateral views of the chest were obtained. COMPARISON: Chest 2 views 12/11/2022 FINDINGS: The chest demonstrates clear lungs without pneumonia, pleural effusion, or pneumothorax. Th e heart size is normal. There are changes of anterior fusion procedure in cervical spine. IMPRESSION: 1. No acute cardiopulmonary disease. Reviewed, dictated and finalized at location A. DEVELOPER
--- NOTE | 2022-12-18 10:22 | ED.SOB ---
HPI - SOB/Dyspnea General Chief Complaint: Shortness of Breath/Dyspnea Stated Complaint: SOB, CP Time Seen by Provider: 12/18/22 10:12 History of Present Illness HPI Narrative: Patient is a 67-year-old female with a history of pericarditis here for evaluation of dyspnea and chest tightness over the past several days. Patient states that she has been battling these symptoms since September when she was first diagnosed with pericarditis. She has been placed on steroids, colchicine with transient improvement of her symptoms but states that they always come back despite compliance w meds. She denies any fevers, chills, nausea, vomiting, leg swelling. 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 She has been in the ED 2 times in the past 2 weeks for the same symptoms, had a CTA study that showed no pulmonary embolism but showed a trace pericardial effusion. Related Data Home Medications Medication Instructions Recorded Confirmed cholecalciferol (vitamin D3) 125 125 mcg PO DAILY 12/16/20 12/18/22 mcg (5,000 unit) capsule cranberry extract 500 mg capsule 500 mg PO DAILY 12/16/20 12/18/22 (Cranberry Concentrate) ferrous sulfate 27 mg iron tablet 27 mg PO DAILY 10/04/22 12/18/22 fluticasone propionate 50 1 spray intranasal BID 10/04/22 12/18/22 mcg/actuation nasal spray,suspension losartan 100 1 tablet PO DAILY 10/04/22 12/18/22 mg-hydrochlorothiazide 25 mg tablet multivitamin with minerals-folic 2 tablet PO DAILY 10/04/22 12/18/22 acid 200 mcg chewable tablet (Adult Multivitamin Gummies) potassium chloride 10 mEq 10 meq PO DAILY 10/04/22 12/18/22 tablet,extended release(part/cryst) pravastatin 40 mg tablet 40 mg PO DAILY 12/18/22 12/18/22 Allergies Allergy/AdvReac Type Severity Reaction Status Date / Time NSAIDS (Non-Steroidal Allergy Intermediate Swelling Verified 12/18/22 14:18 Anti-Inflamma Review of Systems Review of Systems: Gen.: Denies fevers or chills Eyes: Denies eye pain or visual change ENT: Denies congestion Respiratory: Reports shortness of breath CV: Reports chest tightness GI: Denies abdominal pain nausea, emesis or diarrhea denies burning, urgency, frequency or hematuria Musculoskeletal: Denies back pain or muscle pain Neuro: Denies numbness, tingling, weakness or focal weakness Skin: Denies rash Except as documented, all other systems reviewed and negative [facility] Past Medical History Medical History (Updated 12/18/22 @ 14:23 by Denia Valdez PA-C) Arthritis Gout Hypertension Pericarditis Surgical History Surgical History (Updated 12/18/22 @ 14:23 by Denia Valdez PA-C) History of appendectomy History of cardiac catheterization (05/2010) Angiographically normal coronary arteries. History of cervical spinal surgery 2001 and [address] Brush and Reji. History of lumbar surgery (2011) Per Dr. Mendoza. History of partial hysterectomy History of tonsillectomy Status post left foot surgery Family History Family History Sibling Family history of diabetes mellitus in first degree relative Father Family history of heart disease in male family member before age 55 Other Family history of cardiovascular disease Hypertension Social History Social History (Updated 12/18/22 @ 14:25 by Denia Valdez PA-C) Social History: Surrogate medical decision maker: Code status: Smoking status: Former smoker Smoking end date: 11/19/95 Alcohol intake: never Substance use: never Substance use type: does not use Lack of Transportation: No Lack of Food: Never True Current Housing: I Have Housing Concerned About Future Housing: No Difficulty Paying Gas/Electric Bills: No Difficulty Paying for Meds: No Currently Unemployed: No Education: Associate Degree Difficulty w/ Childcare or Family Care: No Spiritual care concerns: No Exam Narrative: STANISLAV
--- NOTE | 2022-12-18 10:30 | ECG_ITS ---
Measurements Intervals [place] Rate: 80 P: -7 NM: 146 QRS: -46 QRSD: 120 T: 46 QT: 382 QTc: 443 Interpretive Statements SINUS RHYTHM RIGHT BUNDLE BRANCH BLOCK LEFT ANTERIOR FASCICULAR BLOCK LEFT VENTRICULAR HYPERTROPHY WITH ST-T CHANGE CANNOT RULE OUT SEPTAL INFARCT, AGE INDETERMINATE MINIMAL Q WAVES- HIGH LATERAL LEADS ABNORMAL ECG COMPARED TO ECG 12/11/2022 10:46:36 SINUS RHYTHM NOW PRESENT Electronically Signed On 12-18-2022 12:03:12 ASSEMBLY INSPECTOR HELPER by Wilbert Olivo D.O.
[2022-12-18 10:41] LABS: Basophils Absolute Auto 0.1 K/mm3 (0.0-0.1); Basophils Percent Auto 0.4 % (0.2-1.2); Eosinophils Absolute Auto 0.1 K/mm3 (0-0.3); Eosinophils Percent Auto 0.2 % (0-4.4); Hematocrit 38.1 % (37.0-47.0); Hemoglobin 11.9 g/dL (12.0-15.0); Immature Granulocyte Absolute 0.93 K/mm3 (0.00-0.031); Immature Granulocyte Percent A 3.9 % (0-0.5); Lymphocytes Absolute Auto 2.31 K/mm3 (0.9-3.2); Lymphocytes Percent Auto 9.6 % (18.3-44.2); Mean Corpuscular HGB Conc 31.2 g/dl (32-36); Mean Corpuscular Hemoglobin 29.4 pg (26-34); Mean Corpuscular Volume 94.1 fl (80-100); Mean Platelet Volume 8.9 fl (7.4-10.4); Monocytes Absolute Auto 0.8 K/mm3 (0.1-0.6); Monocytes Percent Auto 3.1 % (2.6-8.5); Neutrophils Absolute Auto 19.9 K/mm3 (1.3-6.7); Neutrophils Percent Auto 82.8 % (45.5-73.1); Platelet Count Result 887 k/mm3 (150-375); Red Blood Count 4.05 M/mm3 (4.2-5.4); Red Cell Distribution Width 13.8 % (11.5-14.5)
[2022-12-18 10:55] LABS: Alanine Aminotransferase 32 U/L (6-35); Albumin Level 4.3 g/dL (3.5-5.1); Alkaline Phosphatase 98 U/L (38-126); Anion Gap 10 mmol/L (8-16); Aspartate Amino Transferase 37 U/L (14-36); Bilirubin,Total 0.5 mg/dL (0.2-1.3); Blood Urea Nitrogen 41 mg/dL (7-17); CRP 1.1 mg/dL (<1.0); Calcium 9.1 mg/dL (8.4-10.2); Carbon Dioxide 28 mmol/L (22-30); Chloride 95 mmol/L (98-107); Estimated CRCL calculation 59 ml/min; Estimated Glomerular Filt Rate 55; Glucose 134 mg/dL (65-110); Potassium 4.9 mmol/L (3.4-5.0); Sodium 133 mmol/L (137-145)
[2022-12-18 11:04] LABS: NT Pro B Type Natriuretic Pept 242 pg/mL (19.9-100); Troponin I < 0.012 ng/mL (0.000-0.034)
[2022-12-18 11:08] LABS: Erythrocyte Sedimentation Rate 95 mm/hr (0-20)
[2022-12-18 11:17] LABS: Magnesium 2.4 mg/dL (1.6-2.3)
[2022-12-18 12:16] LABS: Influenza A QL RT-PCR Negative (Negative); Influenza B QL RT-PCR Negative (Negative); SARS-CoV-2 RNA PCR Negative
[2022-12-18] MEDS: methylPREDNISolone SOD SUCC 125 MG VIAL IV PUSH (12:57)
--- NOTE | 2022-12-18 14:11 | ADMGEN ---
This patient, Laury Tillman, was admitted to Medical Room 252-01. Patient/family oriented to hospital policies and general routines including ID bracelet, bed and alarms, visiting hours, pain management, procedures, bathroom and other care routines, personal items, smoking policy, room service/diet, and visiting hours. Information on how to activate the Rapid Response Team has been discussed. Patient/Family are encouraged to report perceived risks to care and to ask questions if they do not understand what they are told or what they should do.
--- NOTE | 2022-12-18 15:00 | WPDCN ---
Assessment and Plan Assessment and plan (1) Chest pain: Code(s): R07.9 - Chest pain, unspecified Status: Acute (2) Shortness of breath: Code(s): R06.02 - Shortness of breath Status: Acute (3) Bilateral carotid bruits: Code(s): R09.89 - Other specified symptoms and signs involving the circulatory and respiratory systems Status: Acute (4) Hypertension: Code(s): I10 - Essential (primary) hypertension Status: Acute (5) Normocytic anemia: Code(s): D64.9 - Anemia, unspecified Status: Acute (6) Thrombocytosis: Code(s): D75.839 - Thrombocytosis, unspecified Status: Acute (7) Hyperglycemia: Code(s): R73.9 - Hyperglycemia, unspecified Status: Acute Plan The patient presented to the emergency department for evaluation of shortness of breath and chest pain as detailed in HPI. Labs, imaging, EKG, and reports were personally reviewed. She has had ongoing issues with the symptoms for several months and was most recently diagnosed with pericarditis for which she has been taking colchicine and steroids with some benefit. Unfortunately she once again has recurrent symptoms and they seem to occur with activity. ESR remains elevated but CRP has since normalized. There is no reproducible pain to palpation of the chest wall and her history does not seem consistent with a GI etiology. Chest CTA last week showed no evidence of PE but did show a moderate pericardial effusion. PE is thus unlikely. She was given a dose of IV Solu-Medrol in the emergency department and I will defer any further treatment for possible pericarditis to the senior chemical process engineer. Her glucose has been running high, no doubt due to the steroids she has been taking recently. Check fasting glucose and hemoglobin A1c. Additionally she has a mild, normocytic anemia that has been present since September. Check iron studies given concomitant elevated platelet count. Her platelet count has progressively increased since September which may be related to inflammation, infection (no obvious infectious source, white count is likely elevated due to steroid use), or anemia though not profound which would be expected Her blood pressures were reviewed and they have been reasonable. Antihypertensives will be continued and blood pressures will be monitored closely. Carotid Doppler ultrasounds ordered to evaluate bruits. The rest of her home medications will be reviewed and resumed as appropriate. HPI Data of Consult Date/Time: 12/18/22 16:30 Requesting Physician: Alphonso Bojorquez MD Primary Care Provider: Da Malcolm MD Consult Narrative Reason for consult: Management of chronic medical conditions. Narrative: This is a 67-year-old female with hypertension, dyslipidemia, and iron deficiency anemia who presented to the ED from home for evaluation of chest pain and shortness a breath. Patient present provides the following history. She was admitted to this hospital on 10/04/2022 with chest pain and ruled out for acute coronary syndrome by serial troponins. Echocardiogram at that time showed normal LV, hyperdynamic function without wall motion abnormalities, EF of greater than 70%, and an unremarkable pericardium. She was seen in consultation by Cardiology who felt that it may be musculoskeletal in etiology. It is noted that she had a normal stress test in August 2022 per senior chemical process engineer Dr. Britton Suazo at [facility] which was reportedly done due to an elevated coronary artery calcium score. She was readmitted on 10/18/2022 after presenting with the same complaints of chest pain and shortness off breath. Limited echo showed trivial pericardial effusion and with elevated ESR and CRP she was started on ibuprofen and colchicine for suspected pericarditis. She seemed to do okay for about 1.5 months however she has once again started to have chest pain and shortness of breath and today will be her 3rd visit to the ED for the s
--- NOTE | 2022-12-18 15:53 | PM.CNCAR ---
Assessment and Plan Assessment and plan (1) Atypical chest pain: Code(s): R07.89 - Other chest pain Status: Acute Plan This is a 67-year-old lady with a history of hypertension and obesity who has been having symptoms of feeling unwell for several months now. This started it back and a fall with some chest pain though symptoms have largely improved in her principal complaint now is not chest pain but has shortness of breath with physical activity. She has been treated empirically for the diagnosis of pericarditis although I do not see any compelling evidence in her evaluation that she actually has pericardial inflammation. None other physicians examining her the previous admissions or today have appreciated a pericardial rub. Her electrocardiograms do not show any of the findings typical of this. Echocardiogram does not have any pathognomonic findings indicating pericardial inflammation. Sometimes 1 can not appreciate pericardial thickening or small effusions in the setting of pericarditis. A limited echocardiogram will be done short time from now to further evaluate this. She has received a dose of steroids Solu-Medrol 125 mg in the emergency room. It is fine with me to continue this for now in a q.6 our ER regimen. Her echocardiogram will be reviewed after it is performed but I M not personally convince that this patient has a history of pericarditis based on my personal review of these records. Jamil Tinoco MD [facility] History of Present Illness History of Present Illness Consult date/time: 12/18/22 15:53 Consult reason: chest pain Reason For Visit: pericarditits Narrative: This is a 67-year-old woman admitted to the hospital today for evaluation of symptoms of dyspnea and she was sent here at the request of her physician/foil cutter out at [facility] to have this evaluated. The patient has never been seen by myself before but has been here twice before since September of last year and has been seen by couple of my partners. She says she has a foil cutter at [facility] but is not clear that she really has a history of any cardiac pathology. She says that she was seeing her foil cutter primarily because of concern about cardiac risk because of a prevalent coronary disease in her family and because she has hypertension. Up until recently she has not had any symptomatology to concern her about coronary disease. She does have a history of a coronary angiogram that was done over a decade ago apparently evaluated chest pain with largely negative findings it sounds like she might have had a arrhythmia requiring defibrillation during coronary injection and states that she was very fearful of ever having another angiogram. She has had some noninvasive studies stress test at [facility] looking for ischemic heart disease all with consistently negative findings. She has been experiencing problems of chest pain since the fall of 2021. She was hospitalized here a couple of times with saw concerned that she might have pericarditis. The pain at that time was severe central chest pain which was made worse by breathing efforts and changes in body position. My partner saw the patient on physical exam did not comment on the presence of a pericardial rub. I have reviewed her electrocardiograms going back to all these hospitalizations and I do not see any electrocardiographic findings that are consistent with or concerning for pericarditis. For whatever reason she was treated as such with anti-inflammatory medications and colchicine although she shares with me now that she did not take the colchicine for fear of side effects from the drug until a couple of weeks ago. She felt better during the 2nd hospitalization after colchicine was started. She states that she called her foil cutter at [facility] again today reporting that she is now having symptoms of feeling short of breath she does still have some mild central chest discomfort bu
[2022-12-19] VITALS: PULSE 107
[2022-12-19 04:00] VITALS: PULSE 93
[2022-12-19 05:07] VITALS: BP 113/47; PULSE 72; RESP 18; TEMP 36.7; O2SAT 96
[2022-12-19 05:45] LABS: Basophils Absolute Auto 0.1 K/mm3 (0.0-0.1); Basophils Percent Auto 0.2 % (0.2-1.2); Hematocrit 37.5 % (37.0-47.0); Hemoglobin 11.8 g/dL (12.0-15.0); Immature Granulocyte Absolute 0.57 K/mm3 (0.00-0.031); Immature Granulocyte Percent A 2.1 % (0-0.5); Lymphocytes Absolute Auto 2.07 K/mm3 (0.9-3.2); Lymphocytes Percent Auto 7.6 % (18.3-44.2); Mean Corpuscular HGB Conc 31.5 g/dl (32-36); Mean Corpuscular Hemoglobin 29.2 pg (26-34); Mean Corpuscular Volume 92.8 fl (80-100); Mean Platelet Volume 8.8 fl (7.4-10.4); Monocytes Absolute Auto 0.8 K/mm3 (0.1-0.6); Neutrophils Absolute Auto 23.7 K/mm3 (1.3-6.7); Neutrophils Percent Auto 87.1 % (45.5-73.1); Platelet Count Result 834 k/mm3 (150-375); Red Blood Count 4.04 M/mm3 (4.2-5.4); Red Cell Distribution Width 13.6 % (11.5-14.5); Reticulocyte Hemoglobin Conten 32.8 pg (28.2-35.7); Reticulocyte Percent 2.58 % (0.7-4.3); White Blood Count 27.3 K/mm3 (4.5-10.0)
[2022-12-19 05:53] LABS: Alanine Aminotransferase 28 U/L (6-35); Albumin Level 4.1 g/dL (3.5-5.1); Alkaline Phosphatase 92 U/L (38-126); Anion Gap 8 mmol/L (8-16); Aspartate Amino Transferase 28 U/L (14-36); Bilirubin,Total 0.4 mg/dL (0.2-1.3); Blood Urea Nitrogen 32 mg/dL (7-17); Calcium 9.2 mg/dL (8.4-10.2); Carbon Dioxide 29 mmol/L (22-30); Chloride 100 mmol/L (98-107); Estimated CRCL calculation 73 ml/min; Estimated Glomerular Filt Rate > 60; Glucose 136 mg/dL (65-110); Potassium 4.8 mmol/L (3.4-5.0); Sodium 137 mmol/L (137-145)
[2022-12-19 06:14] LABS: Iron 43 ug/dL (37-170)
[2022-12-19 06:24] LABS: Percent Iron Saturation 12 % (20-50)
[2022-12-19 06:46] LABS: Thyroid Stimulating Hormone Reflex 0.217 uIU/mL (0.465-4.68)
[2022-12-19 07:00] LABS: Folic Acid > 20.0 ng/mL (2.76->20)
[2022-12-19] MEDS: FLUTICASONE PROPIONATE 0.05% NA SPR 16 GM BTL (*BKC) 1 SPRAY NASAL (07:33)
[2022-12-19] MEDS: CHOLECALCIFEROL 1,000 UNITS TABLET 5000 UNITS PO (07:33)
[2022-12-19] MEDS: COLCHICINE 0.6 MG TABLET PO (07:33)
[2022-12-19] MEDS: hydroCHLOROthiazide 25 MG TABLET PO (07:34)
[2022-12-19] MEDS: PRAVASTATIN SODIUM 20 MG TABLET 40 MG PO (07:34)
[2022-12-19] MEDS: POTASSIUM CHLORIDE 10 MEQ TABLET.ER PO (07:34)
[2022-12-19] MEDS: LOSARTAN POTASSIUM 100 MG TABLET PO (07:34)
[2022-12-19 08:00] VITALS: PULSE 80
[2022-12-19] MEDS: methylPREDNISolone SOD SUCC 40 MG VIAL IV PUSH (08:54)
[2022-12-19 09:32] LABS: Free T4 Free Thyroxine Reflex 0.89 ng/dL (0.78-2.19)
[2022-12-19 10:22] LABS: Total Triiodothyronine (T3) 0.71 NG/ML (0.97-1.69)
--- NOTE | 2022-12-19 10:46 | P.PNIM_ITS ---
Progress Note: A&P Assessment and Plan (1) Chest pain: Code(s): R07.9 - Chest pain, unspecified Status: Acute Assessment and Plan: * Presented with shortness of breath and chest pain * She called her timber girdler who was concerned for pericardial effusion * Cardiology consulted * EKG stable, trops stable * Seems to be resolved * It also seems to be more related to her breathing * CTA of the chest showed a moderate pericardial effusion * Echo ordered (2) Shortness of breath: Code(s): R06.02 - Shortness of breath Status: Acute Assessment and Plan: * On room air * Started and continued patient on solumedrol * Currently better at this time * Chest xray shows no acute cardiopulmonary process (3) Bilateral carotid bruits: Code(s): R09.89 - Other specified symptoms and signs involving the circulatory and respiratory systems Status: Acute Assessment and Plan: * Carotid doppler <50% stenosis * No bruit or thrill appreciated on exam (4) Hypertension: Code(s): I10 - Essential (primary) hypertension Status: Acute Assessment and Plan: * 113/47 * Continue home medications * Continue to trend * Adjust therapy as indicated (5) Normocytic anemia: Code(s): D64.9 - Anemia, unspecified Status: Acute Assessment and Plan: * H/H stable at 11.8/37.5 * Anemia panel showed iron 43, TIBC 367, %sat 12, Ferritin 187 * Continue home iron * Trend labs * adjust therapy as indicated (6) Thrombocytosis: Code(s): D75.839 - Thrombocytosis, unspecified Status: Acute Assessment and Plan: * Plt continues to increase currently at 834 * Consulted hematology for further instructions * ESR is elevated as well * Unknown etiology * Continue to trend (7) Hyperglycemia: Code(s): R73.9 - Hyperglycemia, unspecified Status: Acute Assessment and Plan: * Glucose 136 * A1c 6.0 * Accu cheks * ISS * Trend labs * Consider addition of metformin at discharge Plan The patient presented to the emergency department for evaluation of shortness of breath and chest pain as detailed in HPI. Labs, imaging, EKG, and reports were personally reviewed. She has had ongoing issues with the symptoms for several months and was most recently diagnosed with pericarditis for which she has been taking colchicine and steroids with some benefit. Unfortunately she once again has recurrent symptoms and they seem to occur with activity. ESR remains elevated but CRP has since normalized. There is no reproducible pain to palpation of the chest wall and her history does not seem consistent with a GI etiology. Chest CTA last week showed no evidence of PE but did show a moderate pericardial effusion. PE is thus unlikely. She was given a dose of IV Solu- Medrol in the emergency department and I will defer any further treatment for possible pericarditis to the timber girdler. Her glucose has been running high, no doubt due to the steroids she has been taking recently. Check fasting glucose and hemoglobin A1c. Additionally she has a mild, normocytic anemia that has been present since September. Check iron studies given concomitant elevated platelet count. Her platelet count has progressively increased since September which may be related to inflammation, infection (no obvious infectious source, white c
--- NOTE | 2022-12-19 10:46 | PM.IMPN ---
Progress Note: A&P Assessment and Plan (1) Chest pain: Code(s): R07.9 - Chest pain, unspecified Status: Acute Assessment and Plan: Presented with shortness of breath and chest pain She called her coach mechanic who was concerned for pericardial effusion Cardiology consulted EKG stable, trops stable Seems to be resolved It also seems to be more related to her breathing CTA of the chest showed a moderate pericardial effusion Echo ordered (2) Shortness of breath: Code(s): R06.02 - Shortness of breath Status: Acute Assessment and Plan: On room air Started and continued patient on solumedrol Currently better at this time Chest xray shows no acute cardiopulmonary process (3) Bilateral carotid bruits: Code(s): R09.89 - Other specified symptoms and signs involving the circulatory and respiratory systems Status: Acute Assessment and Plan: Carotid doppler <50% stenosis No bruit or thrill appreciated on exam (4) Hypertension: Code(s): I10 - Essential (primary) hypertension Status: Acute Assessment and Plan: 113/47 Continue home medications Continue to trend Adjust therapy as indicated (5) Normocytic anemia: Code(s): D64.9 - Anemia, unspecified Status: Acute Assessment and Plan: H/H stable at 11.8/37.5 Anemia panel showed iron 43, TIBC 367, %sat 12, Ferritin 187 Continue home iron Trend labs adjust therapy as indicated (6) Thrombocytosis: Code(s): D75.839 - Thrombocytosis, unspecified Status: Acute Assessment and Plan: Plt continues to increase currently at 834 Consulted hematology for further instructions ESR is elevated as well Unknown etiology Continue to trend (7) Hyperglycemia: Code(s): R73.9 - Hyperglycemia, unspecified Status: Acute Assessment and Plan: Glucose 136 A1c 6.0 Accu cheks ISS Trend labs Consider addition of metformin at discharge Plan The patient presented to the emergency department for evaluation of shortness of breath and chest pain as detailed in HPI. Labs, imaging, EKG, and reports were personally reviewed. She has had ongoing issues with the symptoms for several months and was most recently diagnosed with pericarditis for which she has been taking colchicine and steroids with some benefit. Unfortunately she once again has recurrent symptoms and they seem to occur with activity. ESR remains elevated but CRP has since normalized. There is no reproducible pain to palpation of the chest wall and her history does not seem consistent with a GI etiology. Chest CTA last week showed no evidence of PE but did show a moderate pericardial effusion. PE is thus unlikely. She was given a dose of IV Solu-Medrol in the emergency department and I will defer any further treatment for possible pericarditis to the coach mechanic. Her glucose has been running high, no doubt due to the steroids she has been taking recently. Check fasting glucose and hemoglobin A1c. Additionally she has a mild, normocytic anemia that has been present since September. Check iron studies given concomitant elevated platelet count. Her platelet count has progressively increased since September which may be related to inflammation, infection (no obvious infectious source, white count is likely elevated due to steroid use), or anemia though not profound which would be expected Her blood pressures were reviewed and they have been reasonable. Antihypertensives will be continued and blood pressures will be monitored closely. Carotid Doppler ultrasounds ordered to evaluate bruits. The rest of her home medications will be reviewed and resumed as appropriate. Time Spent With Patient Time: 56 minutes Time with patient: Greater than 35 minutes Subjective Date/time seen: 12/19/22 10:30 Interval history: 12/19
--- NOTE | 2022-12-19 11:10 | PM.DS ---
DS: Admitting Diagnosis Discharge Date 12/19/2022 Admitting Diagnosis shortness of breath DS: Discharge Diagnosis Discharge Diagnosis (1) Atypical chest pain: Code(s): R07.89 - Other chest pain Status: Acute Assessment and Plan: She has been treated empirically for pericarditis with colchicine and steroids perscribed by her block paver at [facility]. She has been given IV steroids in the hospital and this morning is feeling much better. She denies any chest pain. She walked 5 laps around the unit with no shortness of breath. Her echocardiogram showed a small pleural effusion. Will continue her colchicine and p.o. steroids and recommend close follow up with her usual block paver at [facility]. She was evaluated by hematology for her leukocytosis and thrombocytosis and has follow up scheduled. DS: Summary Hospital Course Hospital Course: Admitted 12/18/2022 for shortness of breath. Was given IV steroids in the ED as directed by her block paver at [facility] and admitted for echocardiogram to assess for pericardial effusion and to monitor for symptom improvement. No acute events overnight and this morning she is asymptomatic and ready for discharge. Time Spent with Patient Time attestation: Total time spent providing and/or coordinating discharge services: Exam Const: General: comfortable and no acute distress HENMT: Mouth: Yes moist mucous membranes Eyes: Sclera: sclerae normal Pupils: Equal, round and reactive pupils present Neck: Neck: supple and no JVD Other: Carotid impulses are intact Resp: Effort & Inspection: normal respiratory effort Auscultation: clear to auscultation bilaterally Cardio: Rate: regular rate Rhythm: regular rhythm Heart sounds: no murmurs and no rubs GI: Auscultation: normal bowel sounds Skin: General skin exam: normal color Neuro: Cranial nerves: Yes Equal, round and reactive pupils present Other: Alert and oriented x3 Extrem: Other: Obese but no edema adequate distal pulses DS: Data Data Completed and Pending Labs on day of discharge: Labs from last 24 hours 12/19/22 12/19/22 12/19/22 05:24 05:24 05:24 WBC 27.3 H RBC 4.04 L Hgb 11.8 L Hct 37.5 MCV 92.8 MCH 29.2 MCHC 31.5 L RDW 13.6 Plt Count 834 H MPV 8.8 Immature Gran % (Auto) 2.1 H Neut % (Auto) 87.1 H Lymph % (Auto) 7.6 L Eagle % (Auto) 3.0 Eos % (Auto) 0.0 Baso % (Auto) 0.2 Lymph # (Auto) 2.07 Eagle # (Auto) 0.8 H Eos # (Auto) 0.0 Baso # (Auto) 0.1 Abs Immat Gran (auto) 0.57 H Absolute Neuts (auto) 23.7 H Absolute Nucleated RBC 0.0 Nucleated RBC % 0.0 Absolute Retic 0.10 L Percent Retic 2.58 Immature Retic Fraction 23.0 H Retic Hgb Content 32.8 Sodium Potassium Chloride Carbon Dioxide Anion Gap BUN Creatinine Estim Creat Clear Calc Estimated GFR Glucose Hemoglobin A1c Calcium Magnesium Iron TIBC % Saturation Ferritin Total Bilirubin AST ALT Alkaline Phosphatase Total Protein Albumin Vitamin B12 Folate Procalcitonin TSH (Reflex) Free T4 0.89 Total T3 0.71 L Influenza A (RT-PCR) Influenza B (RT-PCR) SARS-CoV-2 RNA (RT-PCR) 12/19/22 12/19/22 12/19/22 05:24 05:24 05:24 WBC RBC Hgb Hct MCV MCH MCHC RDW Plt Count MPV Immature Gran % (Auto) Neut % (Auto) Lymph % (Auto) Eagle % (Auto) Eos % (Auto) Baso % (Auto) Lymph # (Auto) Eagle # (Auto) Eos # (Auto) Baso # (Auto) Abs Immat Gran (auto) Absolute Neuts (auto) Absolute Nucleated RBC Nucleated RBC % Absolute Retic Percent Retic Immature Retic Fraction Retic Hgb Content Sodium Potassium Chloride Carbon Dioxide Anion Gap BUN Creatinine Estim Creat Clear Calc Estimated GFR Glucose Hemoglobin A1c
--- NOTE | 2022-12-19 12:43 | PDONCCN ---
HPI - Date of Consult Date/Time: 12/19/22 12:43 Requesting Physician: Alphonso Bojorquez MD Primary Care Provider: Da Malcolm MD - Consult Narrative Reason for consult: Leukocytosis and thrombocytosis Narrative: Laury Tillman is a 67 year old female with history of gouty arthritis, hypertension and dyslipidemia came into the ER with complain of chest pain and shortness of breath. She was admitted to the hospital on October 04 with chest pain and was ruled out for acute coronary symptoms. Cardiology at that time decided that her chest pain was musculoskeletal in etiology. She was readmitted on September 2038 with a complain of chest pain and shortness of breath and found to have elevated C-reactive protein and sedimentation rate. She was started on nonsteroidal anti-inflammatory along with colchicine for possible pericarditis. Patient now came back into the hospital again with increasing shortness of breath. CTA chest showed no evidence of pulmonary embolism but there was moderate pericardial effusion. Other labs showed elevated WBC and platelet counts. Sedimentation rate was elevated and C-reactive protein was normal. She denies any history of thromboembolic events including stroke and heart attack. She is feeling better and looks like ready to be discharged home today. She is already on baby aspirin. Review of Systems - Review of Systems All systems reviewed & are unremarkable except as noted in HPI and bel - Neurologic Reports system reviewed and no additional complaints, except as documented PMFSH Medical History: Medical History (Last Updated 12/18/22 @ 14:23 by Denia Valdez PA-C) Arthritis Gout Hypertension Pericarditis Surgical History: Surgical History (Last Updated 12/18/22 @ 14:23 by Denia Valdez PA-C) History of appendectomy History of cardiac catheterization Onset Date: 05/2010 Angiographically normal coronary arteries. History of cervical spinal surgery 2001 and [address] Brush and Reji. History of lumbar surgery Onset Date: [address] Mendoza. History of partial hysterectomy History of tonsillectomy Status post left foot surgery Family History: Family History (Last Reviewed 12/19/22 @ 00:20 by Denia Valdez PA-C) Sibling Family history of diabetes mellitus in first degree relative Father Family history of heart disease in male family member before age 55 Other Family history of cardiovascular disease Hypertension - Social History Social History: Social History (Last Updated 12/19/22 @ 00:21 by Denia Valdez PA-C) Alcohol Use: Alcohol intake: never Substance Use: Substance use: never Substance use type: does not use Others: Spiritual care concerns: No Smoking Status: Smoking status: Former smoker Smoking end date: 11/19/95 Approximate Smoking End Date: quit 30 years ago Social Determinants of Health: Has the Lack of Transportation Kept You From Medical Appointments or From Getting Medications?: No Within the Past 12 Months, Were You Worried Whether Your Food Would Run Out Before You Got Money to Buy More?: Never True What is Your Housing Situation Today?: I Have Housing Are You Worried That in the Next 2 Months, You May Not Have Your Own Housing to Live In?: No Do You Have Trouble Paying Your Heating Or Electricity Bill?: No Do You Have Trouble Paying For Medicines?: No Are You Currently Unemployed and Looking for Work?: No Highest Level of Education Completed: Associate Degree Do You Have Trouble With Childcare or the Care of a Family Member?: No Exam - Vital Signs Vital Signs - 24 hr 12/18/22 13:00 12/18/22 14:16 12/18/22 14:25 Temperature 36.6 C Pulse Rate 82 76 Respiratory Rate 16 16 Blood Pressure 112/62 158/62 H Pulse Oximetry 97 100 Oxygen Delivery Room Air 12/18/22 14:18 12/18/22 16:00 12/18/22 20:00 Temperature
[2022-12-25 15:22] LABS: CALR Exon 9 Mutation Not Detected (Not Detected); CSF3R Exon 14/17 Mutation Not Detected (Not Detected); Clinical Indication Not Provided; JAK2 Exon 12 Mutation Not Detected (Not Detected); JAK2 V617F Mutation Not Detected (Not Detected); MPL Exon 10 Mutation Not Detected (Not Detected); Specimen Source Blood
== END 2022-12-19 14:00 | disposition home or self-care (01) ==
LOC: ANHED 12:07 → ANH2MED 12-19 08:22
PROVIDERS: Internal Medicine Hematology & Oncology; Physician Assistant; Admitting Provider Specialist; Emergency Provider Emergency Medicine; PCP Internal Medicine; Visit Provider Internal Medicine
DX: R07.89 Other chest pain (principal); I31.9 Disease of pericardium, unspecified; I10 Essential (primary) hypertension; M19.90 Unspecified osteoarthritis, unspecified site; M10.9 Gout, unspecified; D64.9 Anemia, unspecified; R09.89 Other specified symptoms and signs involving the circulatory and respiratory systems; D75.839 Thrombocytosis, unspecified; I45.2 Bifascicular block; R94.31 Abnormal electrocardiogram [ECG] [EKG]; Z20.822 Contact with and (suspected) exposure to COVID-19; E66.9 Obesity, unspecified; Z68.37 Body mass index [BMI] 37.0-37.9, adult; R70.0 Elevated erythrocyte sedimentation rate; R73.9 Hyperglycemia, unspecified; D72.829 Elevated white blood cell count, unspecified; Z87.891 Personal history of nicotine dependence; Z79.51 Long term (current) use of inhaled steroids; Z79.52 Long term (current) use of systemic steroids; Z79.891 Long term (current) use of opiate analgesic; Z79.899 Other long term (current) drug therapy; Z82.49 Family history of ischemic heart disease and other diseases of the circulatory system
CPT/HCPCS: 36415; 71046; 80053; 81219; 81270; 81279; 81339; 81479; 82607; 82728; 82746; 83036; 83540; 83550; 83735; 83880; 84145; 84439; 84443; 84480; 84484; 85025; 85046; 85652; 86140; 87636; 88184; 93005; 93308; 93880; 96374; 96376; 99285; A9270; G0378; J2920; J2930

== ENCOUNTER 2023-01-09 13:42 | Outpatient (CLI) | payer MEDICARE, SELFPAY ==
[2023-01-09 13:51] LABS: Basophils Percent Auto 0.5 % (0.2-1.2); Eosinophils Absolute Auto 0.3 K/mm3 (0-0.3); Eosinophils Percent Auto 3.5 % (0-4.4); Hematocrit 33.3 % (37.0-47.0); Hemoglobin 10.4 g/dL (12.0-15.0); Immature Granulocyte Absolute 0.04 K/mm3 (0.00-0.031); Immature Granulocyte Percent A 0.5 % (0-0.5); Lymphocytes Absolute Auto 2.49 K/mm3 (0.9-3.2); Lymphocytes Percent Auto 31.2 % (18.3-44.2); Mean Corpuscular HGB Conc 31.2 g/dl (32-36); Mean Corpuscular Volume 92.8 fl (80-100); Mean Platelet Volume 8.9 fl (7.4-10.4); Monocytes Absolute Auto 0.6 K/mm3 (0.1-0.6); Monocytes Percent Auto 7.8 % (2.6-8.5); Neutrophils Absolute Auto 4.5 K/mm3 (1.3-6.7); Neutrophils Percent Auto 56.5 % (45.5-73.1); Platelet Count Result 544 k/mm3 (150-375); Red Blood Count 3.59 M/mm3 (4.2-5.4); Red Cell Distribution Width 14.1 % (11.5-14.5)
[2023-01-09 14:08] LABS: Anion Gap 8 mmol/L (8-16); Blood Urea Nitrogen 40 mg/dL (7-17); Calcium 9.1 mg/dL (8.4-10.2); Carbon Dioxide 28 mmol/L (22-30); Chloride 104 mmol/L (98-107); Estimated Glomerular Filt Rate 50; Glucose 96 mg/dL (65-110); Potassium 4.8 mmol/L (3.4-5.0); Sodium 140 mmol/L (137-145)
== END 2023-01-09 13:43 | disposition home or self-care (01) ==
LOC: ANHLAB 13:43
PROVIDERS: PCP Internal Medicine; Visit Provider Internal Medicine Hematology & Oncology
DX: D75.838 Other thrombocytosis (principal)
CPT/HCPCS: 36415; 80048; 85025

== ENCOUNTER 2023-03-21 01:09 | Day surgery (SDC) | payer MEDICARE, SELFPAY ==
[2023-03-12 12:54] VITALS: BMI 39.2
--- NOTE | 2023-03-21 07:50 | WPDANESEPPF ---
Anes - Initial Pre Proc Eval Procedure: Operation Date: 03/21/23 12:30 Proposed Procedures p Esophagogastroduodenoscopy & Colonoscopy - Jarred Baker MD Date/Time: 03/21/23 07:50 Surgeon: Jarred Baker MD Pre Op Diagnosis: TONYA Patient Data Age: 68 Gender: F Height: 1.65 m Weight: 107 kg Allergies Allergy/AdvReac Type Severity Reaction Status Date / Time NSAIDS (Non-Steroidal Allergy Intermediate Swelling Verified 03/12/23 12:51 Anti-Inflamma Home Medications Medication Instructions Recorded Confirmed Type cholecalciferol (vitamin D3) 125 125 mcg PO DAILY 12/16/20 03/12/23 History mcg (5,000 unit) capsule cranberry extract 500 mg capsule 500 mg PO DAILY 12/16/20 03/12/23 History (Cranberry Concentrate) fluticasone propionate 50 1 spray intranasal BID 10/04/22 03/12/23 History mcg/actuation nasal spray,suspension losartan 100 1 tablet PO DAILY 10/04/22 03/12/23 History mg-hydrochlorothiazide 25 mg tablet potassium chloride 10 mEq 10 meq PO DAILY 10/04/22 03/12/23 History tablet,extended release(part/cryst) colchicine 0.6 mg capsule 0.6 mg PO BID #90 caps 12/11/22 03/12/23 Rx allopurinol 100 mg tablet 100 mg PO DAILY 02/21/23 03/12/23 History nadolol 20 mg tablet 20 mg PO DAILY 03/12/23 03/12/23 History Patient hx anesthesia problems: none Family hx anesthesia problems: none Results Review: All pre-operative results and documents have been reviewed as part of the pre-operative evaluation. [facility] Past Medical History Medical History (Updated 03/21/23 @ 11:21 by Ludwin Waer MD) Arthritis Bilateral carotid bruits BMI 39.0-39.9,adult Chest pain Chronic GERD Gout Hyperlipidemia Hypertension Pericarditis Pericarditis Thrombocytosis Surgical History Surgical History (Updated 12/19/22 @ 12:47 by Malcolm Estevez MD) History of appendectomy History of cardiac catheterization (05/2010) Angiographically normal coronary arteries. History of cervical spinal surgery 2001 and [address] Brush and Reji. History of lumbar surgery (2011) Per Dr. Mendoza. History of partial hysterectomy History of tonsillectomy Status post left foot surgery Family History Family History Sibling Family history of diabetes mellitus in first degree relative Father Family history of heart disease in male family member before age 55 Other Family history of cardiovascular disease Hypertension Social History Social History (Updated 12/19/22 @ 00:21 by Denia Valdez PA-C) Social History: Surrogate medical decision maker: Lauren Dickerson, granddaughter. Code status: Full code. Smoking packs per day: 1 Smoking cigarettes per day: 20.0 Years smoked: 20 Smoking pack-years: 20.00 Smoking status: Former smoker Tobacco type: cigarettes Smoking end date: 11/19/95 Alcohol intake: never Substance use: never Substance use type: does not use Lack of Transportation: No Lack of Food: Never True Current Housing: I Have Housing Concerned About Future Housing: No Difficulty Paying Gas/Electric Bills: No Difficulty Paying for Meds: No Currently Unemployed: No Education: Associate Degree Difficulty w/ Childcare or Family Care: No Living arrangements: alone Additional living arrangements comments: Lives alone. Additional occupation/education comments: Retired. Spiritual care concerns: No Anes - Eval Final PreProcedure Day of Procedure 03/21/23 07:50 Patient weight: obese Heart: regular rate and rhythm Lungs: clear to auscultation and normal air movement Airway: Mallampati scale class II Neurological: alert and oriented Last oral intake: >/= 8 hours ASA classification: III Emergent: no Anesthetic plan: proceed Anesthesia type and monitoring: general GIVS Results Review: All pre-operative results and documents have been reviewed as part of
[2023-03-21 11:23] VITALS: BMI 38.0
[2023-03-21 11:34] VITALS: BP 132/75; PULSE 72; RESP 18; TEMP 36.1; O2SAT 100
[2023-03-21] MEDS: LACTATED RINGERS 1,000 ML 150 ML IV CONT (11:37)
--- NOTE | 2023-03-21 12:24 | PM.HPGS ---
History of Present Illness History of Present Illness Consent: Risks, benefits, and alternatives have been discussed and questions answered. Patient agrees to proceed with procedure. Chief complaint: TONYA Narrative: Laury Tillman is a 68 year old female with chronic anemia despite iron, last egd 15 years ago and colonoscopy 10 years ago. History of gerd using tums only as needed, denies nsaid's Review of Systems Constitutional: Constitutional: Denies headache(s) and Denies weakness Eyes: Eyes: Denies blurry vision ENT: Reports Normal hearing present, Denies headache(s) and Denies neck pain Cardiovascular: Cardiovascular: Denies chest pain and Denies dyspnea Respiratory: Respiratory: Denies dyspnea Gastrointestinal: Gastrointestinal: Reports no additional gastrointestinal complaints Genitourinary: Genitourinary: Denies dysuria Musculoskeletal: Musculoskeletal: Denies neck pain Integumentary/Breasts: Skin/Breast: Denies dry skin Neurologic: Reports Normal hearing present, Denies headache(s) and Denies weakness Psychiatric: Psychiatric: Denies anxiety Endocrine: Endocrine: Denies change in body appearance Hematologic/Lymphatic: Hematologic/Lymphatic: Denies easy bleeding Allergic/Immunologic: Allergic/Immunologic: Denies urticaria PMFSH Past Medical History Medical History (Updated 03/21/23 @ 12:25 by Jarred Baker MD) Anemia Arthritis Bilateral carotid bruits BMI 39.0-39.9,adult Chest pain Chronic GERD Gout Hyperlipidemia Hypertension Pericarditis Pericarditis Thrombocytosis Surgical History Surgical History (Updated 12/19/22 @ 12:47 by Malcolm Estevez MD) History of appendectomy History of cardiac catheterization (05/2010) Angiographically normal coronary arteries. History of cervical spinal surgery 2001 and [address] Brush and Reji. History of lumbar surgery (2011) Per Dr. Mendoza. History of partial hysterectomy History of tonsillectomy Status post left foot surgery Family History Family History Sibling Family history of diabetes mellitus in first degree relative Father Family history of heart disease in male family member before age 55 Other Family history of cardiovascular disease Hypertension Social History Social History (Updated 12/19/22 @ 00:21 by Denia Valdez PA-C) Social History: Surrogate medical decision maker: Lauren Dickerson, granddaughter. Code status: Full code. Smoking packs per day: 1 Smoking cigarettes per day: 20.0 Years smoked: 20 Smoking pack-years: 20.00 Smoking status: Former smoker Tobacco type: cigarettes Smoking end date: 11/19/95 Alcohol intake: never Substance use: never Substance use type: does not use Lack of Transportation: No Lack of Food: Never True Current Housing: I Have Housing Concerned About Future Housing: No Difficulty Paying Gas/Electric Bills: No Difficulty Paying for Meds: No Currently Unemployed: No Education: Associate Degree Difficulty w/ Childcare or Family Care: No Living arrangements: alone Additional living arrangements comments: Lives alone. Additional occupation/education comments: Retired. Spiritual care concerns: No Meds Home Medications and Allergies Home Medications Medication Instructions Recorded Confirmed Type cholecalciferol (vitamin D3) 125 125 mcg PO DAILY 12/16/20 03/21/23 History mcg (5,000 unit) capsule cranberry extract 500 mg capsule 500 mg PO DAILY 12/16/20 03/21/23 History (Cranberry Concentrate) fluticasone propionate 50 1 spray intranasal BID 10/04/22 03/21/23 History mcg/actuation nasal spray,suspension losartan 100 1 tablet PO DAILY 10/04/22 03/21/23 History mg-hydrochlorothiazide 25 mg tablet potassium chloride 10 mEq 10 meq PO DAILY 10/04/22 03/21/23 History tablet,extended release(part/cryst) colchicine 0.6 mg capsule 0.6 mg PO BID
--- NOTE | 2023-03-21 12:40 | SUR.OPER ---
EGD END TIME: 1231 COLON START TIME: 1236
[2023-03-21 12:50] VITALS: BP 129/79; PULSE 86; RESP 16; O2SAT 98
[2023-03-21 13:00] VITALS: BP 121/79; PULSE 74; RESP 19; O2SAT 98
[2023-03-21 13:10] VITALS: BP 132/76; PULSE 69; RESP 20; O2SAT 100
== END 2023-03-21 13:23 | disposition home or self-care (01) ==
PROVIDERS: PCP Internal Medicine; Visit Provider Internal Medicine Gastroenterology
PROC: 0DJ08ZZ Inspection of Upper Intestinal Tract, Via Natural or Artificial Opening Endoscopic (ICD-10-PCS; CPT 43235; principal; 2023-03-21 12:30)
DX: Z12.11 Encounter for screening for malignant neoplasm of colon (principal); K64.8 Other hemorrhoids; D64.9 Anemia, unspecified; E66.9 Obesity, unspecified; Z68.38 Body mass index [BMI] 38.0-38.9, adult; K29.70 Gastritis, unspecified, without bleeding; M10.9 Gout, unspecified; I10 Essential (primary) hypertension; Z87.891 Personal history of nicotine dependence
CPT/HCPCS: 43239; G0121; 87081; 88305; J2704; J7120

== ENCOUNTER 2023-05-14 11:14 | Outpatient (CLI) | payer MEDICARE, SELFPAY ==
--- NOTE | ~2023-05-14 | XR_ITS ---
EXAMINATION: XR chest 2V DATE: 05/14/2023 11:26 INDICATION: Dyspnea TECHNIQUE: PA and lateral views of the chest were obtained. COMPARISON: Chest radiograph dated 11/21/2022 FINDINGS: The lungs remain clear with no focal airspace opacities, pulmonary edema, pleural effusion or pneumot horax. The cardiomediastinal silhouette is normal. To moderate thoracic spondylosis. Postoperative ch dieudonne of a multilevel instrumented anterior cervical spinal fusion. IMPRESSION: 1. No acute cardiopulmonary disease. Reviewed, dictated and finalized at location A.
== END 2023-05-14 11:15 | disposition home or self-care (01) ==
LOC: ANHIMG 11:15
PROVIDERS: PCP Internal Medicine; Visit Provider Internal Medicine
DX: R06.09 Other forms of dyspnea (principal); I50.9 Heart failure, unspecified
CPT/HCPCS: 71046

== ENCOUNTER 2023-05-29 10:20 | Outpatient (CLI) | payer MEDICARE, SELFPAY ==
--- NOTE | ~2023-05-29 | MR_ITS ---
MRI of the lumbar spine Clinical History: Radiculopathy Technique: Axial T2-weighted images, and sagittal T1-weighted, T2-weighted, and T2 fat-sat images wer e acquired. Findings: There is no fracture or subluxation of the lumbar spine. Vertebral bodies maintain normal h eight and line. No suspicious bone marrow signal abnormality seen. Intraosseous hemangioma noted at t he L2 vertebral body. At L1-L2, there is minimal disc bulge with mild to moderate facet arthropathy. No central canal steno sis. There is mild left neural foraminal narrowing. At L2-L3, there is mild disc bulge with severe facet arthropathy. No central canal stenosis. Right ne ural foramen is minimally narrowed. At L3-L4, there is diffuse disc bulge with advanced facet arthropathy. There is mild central canal st enosis. Neural foramina are preserved bilaterally. At L4-L5, there is advanced degenerative disc narrowing. There is diffuse disc bulge with tiny annula r fissure. There is mild facet arthropathy. There is right lateral recess stenosis with moderate to s evere right neural foraminal narrowing. There is minimal left neural foraminal narrowing. At L5-S1, there is advanced degenerative disc narrowing with mild disc bulge and moderate facet arthr opathy. No central canal stenosis. There is minimal bilateral neural foraminal narrowing. Paravertebral soft tissues are unremarkable. Impression: [id number] degenerative spondylosis, as detailed above, worst at L4-L5. Reviewed, dictated and finalized at [facility]. Impression: [id number] degenerative spondylosis, as detailed above, worst at L4-L5.
== END 2023-05-29 10:21 ==
LOC: MICIMG 10:21
PROVIDERS: PCP Internal Medicine; Visit Provider Internal Medicine
DX: M47.26 Other spondylosis with radiculopathy, lumbar region (principal)
CPT/HCPCS: 72148

== ENCOUNTER 2023-06-11 14:34 | Outpatient (CLI) | payer MEDICARE, SELFPAY ==
--- NOTE | ~2023-06-11 | XR_ITS ---
Thoracic spine: Clinical Indication: Back pain AP and lateral views were performed. No fracture is seen. There is normal alignment of the vertebrae. There is DISH of the thoracic spine . The intervertebral disc spaces appear normal. Paravertebral soft tissues appear normal. Impression: DISH of the thoracic spine. Reviewed, dictated and finalized at location . Impression: DISH of the thoracic spine.
--- NOTE | ~2023-06-11 | XR_ITS ---
Cervical Spine: AP, lateral, open-mouth views Clinical History: Pain Findings: The normal lordotic curve is maintained. No acute fracture or subluxation identified. There is anterior plate and screws with interbody fusion device extending from C3 to C4. There is addition al anterior fusion hardware extending from C5 to C7. There is mild degenerative disc change at C4-C5. Pre-vertebral soft tissues are unremarkable. Impression: Anterior fusion from C3 to C4, and additional anterior fusion from C5 to C7. No fracture or subluxation. Reviewed, dictated and finalized at location M. Impression: Anterior fusion from C3 to C4, and additional anterior fusion from C5 to C7. No fracture or subluxation.
== END 2023-06-11 14:35 | disposition home or self-care (01) ==
PROVIDERS: PCP Internal Medicine; Visit Provider Internal Medicine
DX: M48.14 Ankylosing hyperostosis [Forestier], thoracic region (principal); Z98.1 Arthrodesis status
CPT/HCPCS: 72050; 72072

== ENCOUNTER → 2024-01-15 07:44 | Outpatient (CLI) | payer MEDICARE, SELFPAY ==
--- NOTE | ~2024-01-15 | MMUS_ITS ---
EXAMINATION: MM diagnostic latrice BI w sarah, US breast LT limited HISTORY: Palpable left breast abnormality TECHNIQUE: Additional 3-D tomosynthesis images of the breasts were performed and synthetic 2-D images were generated. CAD analysis was submitted and interpreted. High resolution Limited left breast ultr asound was performed. COMPARISON: Comparison to multiple prior studies sequentially, with oldest reviewed study dated 01/2015. BREAST PARENCHYMAL COMPOSITION: Not Dense: Breast are almost entirely fatty. FINDINGS: MAMMOGRAPHIC FINDINGS: There are no suspicious masses, calcifications or architectural distortion in either breast to sugges t malignancy. ULTRASOUND: Limited left breast ultrasound: In the subcutaneous tissues there is an oval hypoechoic nonvascular m ass without posterior acoustic enhancement measuring 11 x 10 x 3 mm. There appears to be a sinus trac t, possibly sebaceous cysts. No other masses are identified. IMPRESSION: 1. Probable benign left breast mass in the area of palpable concern. 2. Recommend 6 month follow-up Limited left breast ultrasound BI-RADS category 3, probably benign findings. Reviewed, dictated and finalized at location A. [employer] IMPRESSION: 1. Probable benign left breast mass in the area of palpable concern. 2. Recommend 6 month follow-up Limited left breast ultrasound BI-RADS category 3, probably benign findings.
== END ==
PROVIDERS: PCP Internal Medicine; Visit Provider Internal Medicine
DX: R92.8 Other abnormal and inconclusive findings on diagnostic imaging of breast (principal)
CPT/HCPCS: 76642; 77062; 77066; G0279

== ENCOUNTER 2024-03-13 08:23 | Emergency (ER) | payer MEDICARE, SELFPAY ==
--- NOTE | ~2024-03-13 | CT_ITS ---
EXAMINATION: CT BRAIN W/O DATE: 03/13/2024 09:19 INDICATION: Patient missed step and fell. TECHNIQUE: Computed tomography (CT) of the head was performed without intravenous contrast. The dose- length product was 681.00 mGy-cm. Automated exposure control and iterative reconstruction technique w ere employed. COMPARISON: MRI dated 08/10/2028 FINDINGS: Normal brain parenchymal volume for age. Normal wallace-white differentiation. No acute intrac ranial hemorrhage, infarction, mass or mass effect. There are scattered mild periventricular and subc ortical white matter changes, most likely related to small vessel ischemic disease (microangiopathy). No ventriculomegaly or midline shift. Midline sagittal images demonstrate a normal corpus callosum, c raniovertebral junction and sella turcica. Basilar cisterns are patent. Paranasal sinuses and mastoids are pneumatized. No depressed skull fractures. IMPRESSION: 1. No acute intracranial abnormality. Reviewed, dictated and finalized at location B.
--- NOTE | ~2024-03-13 | XR_ITS ---
XR knee RT min 4V 03/13/2024 09:44 Indication: Right knee pain Procedure: 4 views right knee Comparison: 07/04/2022 Findings: There is tricompartment osteoarthritis. There is chondrocalcinosis. No fracture or traumati c malalignment is effusion. Impression: 1: Mild tricompartment osteoarthritis with chondrocalcinosis. Reviewed, dictated and finalized at location B. Impression: 1: Mild tricompartment osteoarthritis with chondrocalcinosis.
--- NOTE | ~2024-03-13 | XR_ITS ---
XR humerus LT 03/13/2024 09:44 INDICATION: Left arm pain PROCEDURE: 2 views left humerus COMPARISON: No prior studies for comparison. FINDINGS: Fracture, dislocation or subluxation is not identified. The soft tissues appear within norm al limits. No foreign bodies are identified. IMPRESSION: 1: NO ACUTE BONE OR JOINT ABNORMALITY IDENTIFIED. Reviewed, dictated and finalized at location B.
--- NOTE | ~2024-03-13 | XR_ITS ---
XR forearm LT 2V 03/13/2024 09:44 INDICATION: Left arm pain after fall PROCEDURE: 2 views left forearm COMPARISON: No prior studies for comparison. FINDINGS: Fracture, dislocation or subluxation is not identified. There are small loose bodies adjace nt to the humeral epicondyles, likely related to remote trauma. The soft tissues appear within normal limits. No foreign bodies are identified. IMPRESSION: 1: NO ACUTE BONE OR JOINT ABNORMALITY IDENTIFIED. Reviewed, dictated and finalized at location B.
[2024-03-13 08:32] VITALS: BP 145/77; PULSE 72; RESP 20; TEMP 36.4; O2SAT 99
--- NOTE | 2024-03-13 09:13 | PC.NURSE ---
Pt to CT scan via stretcher at this time, sig other remains at bedside.
--- NOTE | 2024-03-13 10:05 | ED.FALL ---
HPI - Fall General Chief Complaint: Fall Stated Complaint: fall this morning-left arm, head, right knee pain Time Seen by Provider: 03/13/24 09:01 Source: patient Mode of arrival: ambulatory Limitations: no limitations History of Present Illness HPI Narrative: This is a 69-year-old female who presents to the ED for chief complaint of ground level fall. Patient reports that she missed the last step while walking down the outside stairs. States that she fell to the ground and stumbled, landing mainly on her left side. Reports left shoulder, left upper arm and left forearm pain. Also reports mild right knee pain. Known arthritis in the right knee. Denies syncope, numbness, weakness or any further sites of pain or injury. Related Data Home Medications Medication Instructions Recorded Confirmed cholecalciferol (vitamin D3) 125 125 mcg PO DAILY 12/16/20 03/22/23 mcg (5,000 unit) capsule cranberry extract 500 mg capsule 500 mg PO DAILY 12/16/20 03/22/23 (Cranberry Concentrate) fluticasone propionate 50 1 spray intranasal BID 10/04/22 03/22/23 mcg/actuation nasal spray,suspension losartan 100 1 tablet PO DAILY 10/04/22 03/22/23 mg-hydrochlorothiazide 25 mg tablet potassium chloride 10 mEq 10 meq PO DAILY 10/04/22 03/22/23 tablet,extended release(part/cryst) allopurinol 100 mg tablet 100 mg PO DAILY 02/21/23 03/22/23 nadolol 20 mg tablet 20 mg PO DAILY 03/12/23 03/22/23 Allergies Allergy/AdvReac Type Severity Reaction Status Date / Time NSAIDS (Non-Steroidal Allergy Intermediate Swelling Verified 03/13/24 08:44 Anti-Inflamma Review of Systems Review of Systems: All systems as dictated in HPI [facility] Past Medical History Medical History (Updated 03/13/24 @ 10:09 by Héctor Farrell PA-C) Anemia Arthritis Bilateral carotid bruits BMI 39.0-39.9,adult Chest pain Chronic GERD Gout Hyperlipidemia Hypertension Pericarditis Pericarditis Thrombocytosis Surgical History Surgical History (Updated 12/19/22 @ 12:47 by Malcolm Estevez MD) History of appendectomy History of cardiac catheterization (05/2010) Angiographically normal coronary arteries. History of cervical spinal surgery 2001 and [address] Ashly. History of lumbar surgery (2012) Per Dr. Mendoza. History of partial hysterectomy History of tonsillectomy Status post left foot surgery Family History Family History Sibling Family history of diabetes mellitus in first degree relative Father Family history of heart disease in male family member before age 55 Other Family history of cardiovascular disease Hypertension Social History Social History (Updated 12/19/22 @ 00:21 by Denia Valdez PA-C) Social History: Surrogate medical decision maker: Lauren Dickerson, granddaughter. Code status: Full code. Smoking packs per day: 1 Smoking cigarettes per day: 20.0 Years smoked: 20 Smoking pack-years: 20.00 Smoking status: Former smoker Tobacco type: cigarettes Smoking end date: 11/19/95 Alcohol intake: never Substance use: never Substance use type: does not use Lack of Transportation: No Lack of Food: Never True Current Housing: I Have Housing Concerned About Future Housing: No Difficulty Paying Gas/Electric Bills: No Difficulty Paying for Meds: No Currently Unemployed: No Education: Associate Degree Difficulty w/ Childcare or Family Care: No Living arrangements: alone Additional living arrangements comments: Lives alone. Additional occupation/education comments: Retired. Spiritual care concerns: No Exam Narrative: GENERAL: Well-appearing, well-nourished, and in no acute distress. HEAD: Normocephalic, atraumatic. EYES: PERRLA and EOMI. ENT: Nares clear, no rhinorrhea or epistaxis. Mucous membranes moist. Oropharynx without tonsillar hypertrophy exudate or other lesions. NECK: Supple. No adenopathy
== END 2024-03-13 10:20 | disposition home or self-care (01) ==
PROVIDERS: Emergency Provider Physician Assistant; PCP Internal Medicine
DX: S46.012A Strain of muscle(s) and tendon(s) of the rotator cuff of left shoulder, initial encounter (principal); I10 Essential (primary) hypertension; I31.9 Disease of pericardium, unspecified; K21.9 Gastro-esophageal reflux disease without esophagitis; E78.5 Hyperlipidemia, unspecified; M17.11 Unilateral primary osteoarthritis, right knee; M10.9 Gout, unspecified; Z86.2 Personal history of diseases of the blood and blood-forming organs and certain disorders involving the immune mechanism; Z87.891 Personal history of nicotine dependence; Z90.711 Acquired absence of uterus with remaining cervical stump; M11.261 Other chondrocalcinosis, right knee; W10.9XXA Fall (on) (from) unspecified stairs and steps, initial encounter
CPT/HCPCS: 70450; 73060; 73090; 73564; 99284

== ENCOUNTER 2024-03-26 10:02 | Outpatient (CLI) | payer MEDICARE, SELFPAY ==
--- NOTE | ~2024-03-26 | MR_ITS ---
EXAMINATION: MR elbow LT wo con DATE: 03/26/2024 10:42 INDICATION: Left elbow pain. TECHNIQUE: Magnetic resonance imaging (MRI) of the left elbow was performed without intravenous contr ast. The patient terminated the exam after a few sequences. COMPARISON: Forearm radiographs 03/13/24 FINDINGS: Osseous/other: Bone alignment is normal. There is a nondisplaced fracture of the junction of radial head and neck. T here is mild elbow joint osteoarthritis. Tendons: Brachialis tendon is normal. Biceps tendon is normal. There are enthesophytes at the medial and later al humeral epicondyles. There is a partial tear of common extensor tendon at its attachment to the la teral femoral condyle. There is mild common flexor tendinopathy. Ligaments: Radial collateral ligament and lateral ulnar collateral ligament are not well evaluated due to the pa sissynt's early termination of the exam. Ulnar collateral ligament is normal. Cubital tunnel: The ulnar nerve is normal. Fluid: There is an elbow joint effusion. IMPRESSION: 1. Nondisplaced fracture of the junction of radial head and neck. 2. Partial tear of common extensor tendon at lateral humeral epicondyle. 3. Elbow joint effusion. Reviewed, dictated and finalized at location A.
== END 2024-03-26 10:03 ==
LOC: MICIMG 10:03
PROVIDERS: PCP Internal Medicine; Visit Provider Internal Medicine
DX: M25.522 Pain in left elbow (principal); S52.125A Nondisplaced fracture of head of left radius, initial encounter for closed fracture; S46.812A Strain of other muscles, fascia and tendons at shoulder and upper arm level, left arm, initial encounter; M25.422 Effusion, left elbow
CPT/HCPCS: 73221

== ENCOUNTER 2024-07-28 07:56 | Outpatient (CLI) | payer MEDICARE, SELFPAY ==
--- NOTE | ~2024-07-28 | US_ITS ---
EXAMINATION: US breast LT limited HISTORY: Six-month follow-up of left breast lesion TECHNIQUE: High resolution targeted left breast breast ultrasound was performed. COMPARISON: 01/15/2024 Findings: There is an amorphous hypoechoic wider than tall lesion just deep to the skin at the left b reast 10:00 region at the area of palpable concern. This is less well-defined and probably minimally decreased from prior exam. Probable small tract extending to the skin surface. IMPRESSION: Probable sebaceous cyst at the 10:00 position of the left breast at the area of clinical concern, le ss well delineated as compared to prior exam. BI-RADS Category 2: Benign finding(s). Reviewed, dictated and finalized at location M. IMPRESSION: Probable sebaceous cyst at the 10:00 position of the left breast at the area o f clinical concern, less well delineated as compared to prior exam. BI-RADS Category 2: Benign finding(s).
== END 2024-07-28 07:57 | disposition home or self-care (01) ==
PROVIDERS: PCP Internal Medicine; Visit Provider Internal Medicine
DX: N63.20 Unspecified lump in the left breast, unspecified quadrant (principal); R92.8 Other abnormal and inconclusive findings on diagnostic imaging of breast
CPT/HCPCS: 76642

== ENCOUNTER 2025-01-20 07:16 | Outpatient (CLI) | payer MEDICARE, SELFPAY | END 2025-01-20 07:17 | disposition home or self-care (01) | LOC: MICIMG 07:16 | PROVIDERS: PCP Internal Medicine; Visit Provider Internal Medicine | DX: Z12.31 Encounter for screening mammogram for malignant neoplasm of breast (principal) | CPT/HCPCS: 77063; 77067 ==

== ENCOUNTER 2025-04-06 13:23 | Outpatient (CLI) | payer MEDICARE, SELFPAY ==
--- NOTE | ~2025-04-06 | XR_ITS ---
HISTORY: Lumbago with sciatica, left side, pain in left hip COMPARISON: None TECHNIQUE: 2 views of the left hip FINDINGS: No acute fracture or dislocation is identified. Superior lateral sclerosis of the femoral acetabular joint space is present consistent with osteoarth ritis. Age appropriate mineralization. IMPRESSION: Degenerative disease without acute fracture or dislocation Reviewed, dictated and finalized at location A.
--- NOTE | ~2025-04-06 | XR_ITS ---
3 VIEWS LUMBAR SPINE Ordering provider: Da Malcolm MD History: . Lumbago with sciatica, left side, pain in left hip . Comparison: None. FINDINGS: VERTEBRAL BODIES: No visible fracture or subluxation. Degenerative changes of the spine. DISK SPACES: Narrowing of the disc L1-L2, L3-4, L4-L5 and L5-S1. SOFT TISSUES: Atherosclerotic changes of the aorta. IMPRESSION: No acute osseous abnormality lumbar spine. Multilevel degenerative disc disease. Reviewed, dictated and finalized at location A.
--- NOTE | ~2025-04-06 | XR_ITS ---
XR knee RT 3V Ordering provider: Da Malcolm MD History: . Lumbago with sciatica, left side, pain in left hip . Comparison: March 13, 2024 FINDINGS: BONES: No acute fracture or dislocation. JOINT SPACES: Narrowing of the medial compartment. Chondrocalcinosis. SOFT TISSUES: Normal. IMPRESSION: No acute osseous abnormality right knee. Mild osteoarthritic changes. Chondrocalcinosis. Reviewed, dictated and finalized at location A.
--- OUTSIDE RECORDS SUMMARY | 2025-04-06 13:33 | XMS_ITS | Clinical Summary ---
Author Organization [facility] Address [address] [place] [address] Care Team Providers Care Network Strategist Name Role Phone Unavailable Primary Care Provider Unavailabl e Source Comments [facility],non-owned Affiliates and Associated Physician Practices is amultiple site organization consisting of ambulatory clinics and hospital sitesin [place], [place], [place] and [place]. This disclosure is being madepursuant to the Care Everywhere program and may not contain all information available regarding this patient. Last updated 18.[facility] Allergies Active Allergy Reactions Criticality Noted Date Comments Nsaids 05/18/2014 FLUID BUILDUP Medications * Be aware that medications may not be up to date on this document. Alwaysverify current medications with the patient. hydrocodone-acet aminophen (NORCO) 5-325 MG tablet Take 1 Tab by mouth as needed. Active ALPRAZolam (XANAX) 0.5 MG tablet Take 1 Tab by mouth as needed. Active triamterene-hydr ochlorothiazide (DYAZIDE) 50-25 MG capsule Take 1 Cap by mouth once daily. Active docusate sodium 100 MG CAPS Take 100 mg by mouth 2 times daily. 60 Cap 1 05/21/2014 Active bethanechol (URECHOLINE) 25 MG tablet Take 1 Tab by mouth 3 times daily. 30 Tab 0 05/21/2014 Active Active Problems No known active problems Family History Medical History Relation Name Comments Heart Disease Father Hypertension Father Hypertension Mother Hypertension Sister 2 Relation Name Status Comments Brother Alive Father Alive Mother Sister 1 Alive Sister 2 Social History Tobacco Use Types Packs/Day Years Used Date Smoking Tobacco: Former Cigarettes Q uit: 11/19/1998 Smokeless Tobacco: Never Tobacco Cessation:Counseling Given: No Alcohol Use Standard Drinks/Week Comments No 0 (1 standard drink = 0.6 oz pur e alcohol) Comments No Sex and Gender Information Value Date Recorded Sex Assigned at Not on file 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 Gender Identity Not on file Sexual Orientation Not on file Last Filed Vital Signs Vital Sign Reading Time Taken Comments Blood Pressure 122/57 05/21/2014 8:25 AM CDT Pulse 72 05/21/2014 8:25 AM CDT Temperature 36.7 C (98.1 F) 05/21/2014 8:25 AM CDT Respiratory Rate 16 05/21/2014 8:25 AM CDT Oxygen Saturation 95% 05/21/2014 8:25 AM CDT Inhaled Oxygen Concentration - - Weight 102.1 kg (225 lb) 06/12/2014 3:27 PM CDT Height 168.9 cm (5' 6.5 ) 06/12/2014 3:27 PM CDT Body Mass Index 35.77 06/12/2014 3:27 PM CDT Plan of Treatment Health Maintenance Due Date Last Done Comments BONE DENSITY TESTING 1955 COLOGUARD (AGES 45-75) - COL ON CA SCREENING 1955 CT COLONOGRAPHY - COLON CA SCREENING 1955 FIT - COLON CA SCREENING 1955 FLEX SIG - COLON CA SCREENING 1955 LIPID TESTING 1955 MAMMOGRAM 1955 HEPATITIS C SCREENING 02/10/1973 DTAP/TDAP/TD VACCINES (1 - Tdap) 1974 PNEUMOCOCCAL VACCINE 50+ (1 of 1 - PCV) 2005 ZOSTER VACCINE (1 of 2) 2005 COLON MONITORING 05/19/2024 05/19/2014 COLONOSCOPY - COLON CA SCREENING 05/19/2024 05/19/20 14 Colorectal Cancer Screening 05/19/2024 COVID-19 VACCINE (1 - 2023-2 5 season) 2024 DEPRESSION SCREENING 11/19/2024 INFLUENZA VACCINE (Season Ended) 2025 Respiratory Syncytial Virus (RSV) Vaccine Pt: or over 60 yrs (1 - 1-dose 75+ series) 2030 HEPATITIS B VACCINE Aged Out No longe r eligible based on patient's age to complete this topic HIB VACCINE Aged Out No longer eligi ble based on patient's age to complete this topic HPV VACCINE Aged Out No longer eligi ble based on patient's age to complete this topic MENINGOCOCCAL (Group B) VACC INE SHARED DECISION-MAKING Aged Out No longer eligibl e based on patient's age to complete this topic MENINGOCOCCAL GROUPS A/C/Y/W VACCINE Aged Out No longer eligible b ased on patient's age to complete this topic Procedures Procedure Name Priority Date/Time Associated Diagnosis Comments ENDOSCOPY, COLON, SCREENING Routine 05/19/2014 7:07 AM CDT from Last 3 Months or Most Recently Relevant to Health Maintenance Results * ENDOSCOPY, COLON, SCREENING (05/19/2014 7:07 AM CDT) Report Endoscopy POC _ Patient Name: Laury Tillman Procedure Date: 05/19/2014 7:07 AM Date of : 1955 Admit Type: Inpatient Age: 59 Gender: Female Attending MD: Fred Brooks MD _ Procedure: Colonoscopy Indications: Screening for colorectal malignant neoplasm Providers: Fred Brooks MD (Doctor) Referring MD: Da Malcolm MD (Referring MD) Medicines: Propofol per Anesthesia Complications: No immediate complications. _ Procedure: After I obtained informed consent, the scope was passed under direct vision. Throughout the procedure, the patient's blood pressure, pulse, and oxygen saturations were monitored continuously. The Colonoscope was introduced through the anus and advanced to the cecum, identified by appendiceal orifice and ileocecal valve. The colonoscopy was performed without difficulty. The patient tolerated the procedure well. The entire colon was examined. Findings: The entire examined colon appeared normal. _ Impression: - The entire examined colon is normal. Recommendation: - Return to my office as previously scheduled. Procedure Code(s): --- Professional --- 38227, Colonoscopy, flexible, proximal to splenic flexure; diagnostic, with or without collection of specimen(s) by brushing or washing, with or without colon decompression (separate procedure) --- Technical --- 24063, Colonoscopy, flexible, proximal to splenic flexure; diagnostic, with or without collection of specimen(s) by brushing or washing, with or without colon decompression (separate procedure) Diagnosis Code(s): --- Professional --- V76.51, Special screening for malignant neoplasms of colon --- Technical --- V76.51, Special screening for malignant neoplasms of colon CPT copyright 2013 [employer]. All rights reserved. The codes documented in this report are preliminary and upon ball fringe machine operator review may be revised to meet current compliance requirements. Dr. Fred Brooks MD _ Fred Brooks MD 05/19/2014 8:33 AM This report has been signed electronically. Number of Addenda: 0 Note Initiated On: 05/19/2014 7:07 AM [facility] ENDOSCOPY 05/19/2014 7:07 AM CDT Anca Cisco OUT OF TOWN COLLECTION CLERK-TECHNICAL SOURCING RECRUITER GI PROCEDURE ORDERABLES Edited Result [place] [address] from Last 3 Months or Most Recently Relevant to Health Maintenance Insurance Advance Directives * Full Code (Latest Code Status on File) Date Activated Date Inactivated Comments 05/19/2014 12:50 PM 05/21/2014 1:43 PM
--- OUTSIDE RECORDS SUMMARY | 2025-04-06 13:33 | XMS_ITS | Encounter Summary ---
Author Organization [facility] Address [address] [place] [address] Care Team Providers Care Billing Supervisor Name Role Phone Da Malcolm MD Primary Care Provider + Encounter Details Date Type Department Care Team (Late st Contact Info) Description 05/15/2023 Lab Requisition 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 Blood Collection / Unknown 05/15/2023 10:20 AM CDT 05/15/2023 11:01 AM CDT Narrative [facility] - 05/15/2023 11:25 AM CDT D-Dimer assay cutoff value for exclusion of DVT and/or PE is <0.50 ug/mL FEU. As D-Dimer levels increase naturally with age, age stratification for patients over 50 is potentially more appropriate in determining whether a patient should undergo further evaluation for DVT and/or PE than a general cutoff of 0.50 ug/mL FEU. Clinical consideration is recommended. Age Stratified Cutoff Values: 50-60 years: 0.50-0.60 ug/mL FEU 61-70 years: 0.61-0.70 ug/mL FEU 71-80 years: 0.71-0.80 ug/mL FEU us External Provider [facility] HEMATOLOGY ORDERABLES Fi nal Result [facility]# [id number] [address] [place] [address] documented in this encounter Visit Diagnoses Not on filedocumented in this encounter Care Teams Billing Supervisor Relationship Specialty Start Date End Date Da Malcolm MD [address] [place] [address] PCP - General Internal Medicine 01/09/23 documented as of this encounter
--- OUTSIDE RECORDS SUMMARY | 2025-04-06 13:33 | XMS_ITS | CONTINUITY OF CARE DOCUMENT ---
Author Name wayne faustofabby Address Unknown Organization [facility] Address [address] [place] [address] Phone [phone] Care Team Providers Care Toll Booth Operator Name Role Phone Margaret Fermin MD Unavailable [phone] MICHAEL RIGGS MD Unavailable [phone] MICHAEL RIGGS MD Unavailable PROBLEMS Condition Status Date Provider Notes Fatigue active Margaret Fermin MD Sleep apnea - Scheduled to have CPAP active Margaret Fermin MD Tobacco use, quit 20 years ago active Caryl Fermin MD HTN essential active Margaret Fermin MD Chest pain, atypical active Margaret Fermin MD ENCOUNTERS Date Type Provider Location Encounter Diag nosis - In-person encounter Office Visit Margaret Fermin MD [facility] FatigueSleep apnea - Scheduled to have CPAPTobacco use, quit 20 years agoHTN essentialChest pain, atypical VITAL SIGNS Date Observation Value Provider Body Mass Index (Ratio) 39.74 kg/m2 Renetta Fermin MD blood pressure, diastolic 82 mm[Hg] Demarco Fermin MD blood pressure, systolic 132 mm[Hg] Kerrie Fermin MD pulse rate 88 /min Margaret Fermin MD oxygen saturation, oximetry 95 % Margaret Fermin MD respiratory rate E&M 16 /min Georgi Fermin MD weight E&M 250 [lb_av] Margaret Fermin MD height E&M 66.5 [in_i] Margaret Fermin MD ALLERGIES Allergy Name Onset Date Reaction Criticality Status PREDNISONE Swelling, palpitations High Critical ity active HISTORY OF MEDICATION USE Medication Status Instructions Dates Provider Indications Com ments RANEXA 500 MG ORAL TABLET EXTENDED RELEASE 12 HOUR active ONE TAB. TWICE DAILY for chronic angina Erin Little RN ATORVASTATIN CALCIUM 40 MG ORAL TABLET active 1 tab by mouth daily Gurvinder Enciso ALPRAZOLAM 0.5 MG ORAL TABLET active 1 tablet daily Margaret Fermin MD HYDROCODONE-ACETA MINOPHEN 5-325 MG ORAL TABLET active Margaret Fermin MD POTASSIUM CHLORIDE DARWIN ER 10 MEQ ORAL TABLET EXTENDED RELEASE active ONE TAB. 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 Margaret Fermin MD smoking, year quit 1999 Margaret Fermin MD cigarette use yes Margaret Fermin MD smoking status Former smoker Margaret morris MD FAMILY HISTORY Family Member Condition Daughter Family History Unkno wn INSURANCE PROVIDERS Payer name Policy type / Coverage type [facility] ID [facility] [id number] Other [id number] TREATMENT PLAN Date Name Performer faxed to PCP printed to jevon Fermin MD faxed to PCP printed to jevon Fermin MD faxed to PCP printed to doug rivas updated medication list for this problem includes: Losartan Potassium-hctz 50-12.5 Mg Oral Tabs (Losartan potassium-hctz) ..... 1 tablet daily Triamterene-hctz 50-25 Mg Oral Caps (Triamterene-hctz) ..... 1 tablet daily Margaret Fermin MD faxed to PCP printed to jevon Fermin MD Date Name Full PFT STR - Nuclear Complete Echo
--- OUTSIDE RECORDS SUMMARY | 2025-04-06 13:33 | XMS_ITS | Encounter Summary ---
Author Organization [facility] Address [address] [place] [address] Care Team Providers Care Records And Information Manager Name Role Phone Unavailable Primary Care Provider Unavailabl e Encounter Details Date Type Department Care Team (Late st Contact Info) Description 02/27/2014 [facility] Outpatient Visit EXTERNAL NON-[facility] DEPT Fred Brooks MD [address] [phone] Social History Tobacco Use Types Packs/Day Years Used Date Smoking Tobacco: Former Cigarettes Q uit: 11/19/1998 Smokeless Tobacco: Never Alcohol Use Standard Drinks/Week Comments No 0 (1 standard drink = 0.6 oz pur e alcohol) Comments No Sex and Gender Information Value Date Recorded Sex Assigned at Not on file 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
--- OUTSIDE RECORDS SUMMARY | 2025-04-06 13:33 | XMS_ITS | Encounter Summary ---
Author Organization [employer] Address [address] [place] [address] Care Team Providers Care Refinery Superintendent Name Role Phone Da Malcolm MD Primary Care Provider + Encounter Details Date Type Department Care Team (Late st Contact Info) Description 05/19/2002 Outpatient [facility] [address] [place] [address] 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
--- OUTSIDE RECORDS SUMMARY | 2025-04-06 13:33 | XMS_ITS | Encounter Summary ---
Author Organization [employer] Address [address] [place] [address] Care Team Providers Care Masonry Instructor Name Role Phone Da Malcolm MD Primary Care Provider + Encounter Details Date Type Department Care Team (Late st Contact Info) Description 05/19/2002 Outpatient [facility] [address] [place] [address] 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
--- OUTSIDE RECORDS SUMMARY | 2025-04-06 13:33 | XMS_ITS | Encounter Summary ---
Author Organization [facility] Address [address] [facility] [place] [address] Care Team Providers Care Repairer Welding Equipment Name Role Phone Unavailable Primary Care Provider Unavailabl e Encounter Details Date Type Department Care Team (Late st Contact Info) Description 03/04/2014 [facility] Outpatient Visit EXTERNAL NON-[facility] DEPT Fred Brooks MD [address] [phone] Social History Tobacco Use Types Packs/Day Years Used Date Smoking Tobacco: Former Cigarettes Q uit: 11/19/1998 Smokeless Tobacco: Never Alcohol Use Standard Drinks/Week Comments No 0 (1 standard drink = 0.6 oz pur e alcohol) Comments No Sex and Gender Information Value Date Recorded Sex Assigned at Not on file 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
--- OUTSIDE RECORDS SUMMARY | 2025-04-06 13:33 | XMS_ITS | Clinical Summary ---
Author Organization [facility] Address [address] [place] [address] Care Team Providers Care District Gauger Name Role Phone Reyes Aguilar MD Unavailable Unavailab le Social History Tobacco Use Types Packs/Day Years Used Date Smoking Tobacco: Never Assessed Comments Unknown Sex and Gender Information Value Date Recorded Sex Assigned at Not on file Legal Sex Female 10:24 PM CDT Gender Identity Not on file Sexual Orientation Not on file Plan of Treatment Health Maintenance Due Date Last Done Comments Colorectal Cancer Screening Colonoscopy (10 Years) 1955 Hepatitis C 1973 DTaP, Tdap and Td Vaccines ( 1 - Tdap) 1974 Mammogram Screening 1995 Pneumococcal Vaccine: 50+ Ye ars (1 of 1 - PCV) 2005 Zoster Vaccines (1 of 2) 2005 Dexa Scan (General) 02/16/2020 COVID-19 Vaccine ( - 2023-2 5 season) 2024 RSV Immunization or 60+ Years (1 - 1-dose 75+ series) 2030 Meningococcal B Vaccine Aged Out No l onger eligible based on patient's age to complete this topic Meningococcal Vaccine Aged Out No danelle shannon eligible based on patient's age to complete this topic RSV Immunizations Under 20 Months Aged Out No longer eligible based on patient's age to complete this topic Insurance GENERIC - COMMERCIAL on file Care Teams District Gauger Relationship Specialty Start Date End Date Reyes Aguilar MD [place] Senior Android Developer INTERVENTIONAL CARDIOLOGY 03/22/18
--- OUTSIDE RECORDS SUMMARY | 2025-04-06 13:33 | XMS_ITS | Encounter Summary ---
Author Organization [facility] Address [address] [place] [address] Care Team Providers Care Equine Internship Name Role Phone Da Malcolm MD Primary Care Provider + Encounter Details Date Type Department Care Team (Late st Contact Info) Description 06/02/2002 [facility] [address] [place] [address] 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
--- OUTSIDE RECORDS SUMMARY | 2025-04-06 13:33 | XMS_ITS | Clinical Summary ---
Author Organization [facility] Administrative Offices Address [address] [place] [phone] Care Team Providers Care Supervisor [employer] Name Role Phone Da Malcolm MD Primary Care Provider + Allergies No known active allergies Medications allopurinoL (ZYLOPRIM) 100 mg tablet 2 Active Cranberry 500 mg Capsule 1 capsule(s), Oral, daily, 100 capsule(s), Capsule(s), 0 1 Active indomethacin (INDOCIN SR) 75 mg Extended Release capsule 3 Active losartan-hydroC HLOROthiazide (HYZAAR) 100-25 mg tablet 2 Active potassium chloride (KLOR-CON) 20 mEq Extended Release tablet 2 Active vitamin A 8,000 unit capsule See Instructions, 0, 2400 mcg 2 tabs daily, Instructions Replace Required Details 2 Active Calcium-Choleca lciferol, D3, (OSCAL) 250 mg-3.125 mcg (125 unit) per tablet Take by mouth daily. Active Active Problems No known active problems Family History Medical History Relation Name Comments No Known Problems Brother 1 No Known Problems Brother 2 No Known Problems Daughter Heart Disease Father No Known Problems Mother Heart Disease Sister Thyroid Cancer Son 1 No Known Problems Son 2 Relation Name Status Comments Brother 1 Alive Brother 2 Alive Daughter Alive Father Mother Sister Alive Son 1 Alive Son 2 Social History Tobacco Use Types Packs/Day Years Used Date Smoking Tobacco: Former Cigarettes 0.5 20 0 11/19/1972 - 11/19/1992 Smokeless Tobacco: Never Tobacco Cessation:Counseling Given: Not Answered Alcohol Use Standard Drinks/Week Comments Never 0 (1 standard drink = 0.6 oz pur e alcohol) Comments Unknown Sex and Gender Information Value Date Recorded Sex Assigned at Not on file 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 Gender Identity Not on file Sexual Orientation Not on file Last Filed Vital Signs Vital Sign Reading Time Taken Comments Blood Pressure 128/64 08/13/2023 10:19 AM CDT Pulse 71 08/13/2023 10:19 AM CDT Temperature 36.9 C (98.4 F) 08/13/2023 10:19 AM CDT Respiratory Rate 10 08/13/2023 10:19 AM CDT Oxygen Saturation 96% 08/13/2023 10:19 AM CDT Inhaled Oxygen Concentration - - Weight 107.5 kg (237 lb) 08/13/2023 10:19 AM CDT Height 170.7 cm (5' 7.2 ) 01/09/2023 1:06 PM CURING OVEN TENDER Body Mass Index 36.9 01/09/2023 1:06 PM CURING OVEN TENDER Plan of Treatment Health Maintenance Due Date Last Done Comments DTAP/TDAP/TD VACCINES (1 - Tdap) 1974 BREAST CANCER SCREENING 1995 COLORECTAL SCREENING 02/16/2000 Colorectal Cancer Screening 02/16/2000 FIT-DNA Q 3 years 02/16/2000 FIT/FOBT Q 1 year 02/16/2000 Flex Sig/CT Colonography Q 5 years 02/16/2000 PNEUMOCOCCAL VACCINE 50+ YEARS (1 of 1 - PCV) 02/16/20 05 ZOSTER VACCINE (1 of 2) 2005 OSTEOPOROSIS SCREENING 02/16/2020 INFLUENZA VACCINE (#1) 2024 RSV VACCINE (60+ or ) (1 - 1-dose 75+ series) 2030 Insurance HU[employer] CHOICE PPO MCR HU[employer] CHOICE PPO MCR Care Teams Supervisor [employer] Relationship Specialty Start Date End Date Da Malcolm MD [address] [place] [phone] PCP - General Internal Medicine 01/09/23
--- OUTSIDE RECORDS SUMMARY | 2025-04-06 13:33 | XMS_ITS | Data Portability ---
Author Organization [place] [facility], Main Office Address [address] [place] [address] Care Team Providers Care Medical Insurance Claims Specialist Name Role Phone MICHAEL RIGGS Primary Care Provider MICHAEL RIGGS Referring Provider Assessment Encounter Date Assessment Date Assessment LastModified by Organization Details LastModified Time 04/01/2024 04/01/2024 The patient has a healing fracture of the left radial head. She also had partial tearing of the ECRB attachment. She has some stiffness have advised her to work on range of motion her x-rays today look good with good healing no displacement is noted. She had a nondisplaced closed acute traumatic fracture 3 weeks ago. She is going to work on gentle range of motion with pronation supination flexion and extension of her forearm and elbow. I have advised her not to do anything heavy repetitive with the arm. I will see her back in a month we will recheck her elbow with new x-rays at that time. As far as her wrist goes she has no finding as an x-ray apparently she has a left wrist sprain this is improving with time. She is going to take it easy on gentle range of motion with the wrist as well. She voiced understanding agrees above plan she will use [id number] Tylenol or anti-inflammator ies as needed she will call for any further problems difficulties or questions. [email or web address] Not available 04/01/2024 15:15:22 Plan of Treatment Reminders Order Date Submit Date Provider Last Modified By Organization Details Last Modified Time Details Appointments None recorde d. Lab None recorde d. Referral None recorde d. Procedures None recorde d. Surgeries None recorde d. Imaging XR, elbow 024 04/01/20 24 [email or web address] [facility] [place], [address], [place], [address], 4 17:35:10 XR, wrist 024 04/01/20 [email or web address] [facility] [place], [address], [place], [address], 4 17:35:10 Medication Orders None recorde d. Patient TargetsNo targets recorded. Patient InstructionsNo instructions recorded. Reason for Referral None Reported. Results Created Date Observation Date Name Description Value Unit Range Abnormal Flag Note LastModifiedBy Organization Detail LastModifiedTime 09/19/20 22 07/04/2022 XR, shoul aleida, 2 or more view No observ ation record ed. [id number] Not Available 01/18/2023 01:52:42 09/19/20 22 07/04/2022 XR, elbow , 3 or more view No observ ation record ed. [id number] Not Available 01/18/2023 01:52:42 09/19/20 22 07/04/2022 XR, knee, 4 or more view No observ ation record ed. [id number] Not Available 01/18/2023 01:52:42 09/19/20 22 09/19/2022 MRI, shoul aleida, w/o contr ast No observ ation record ed. [id number] Not Available 01/18/2023 01:52:42 03/28/20 24 03/26/2024 MRI, elbow , w/o contr ast No observ ation record ed. Not Available 03/19 11:13:02 03/28/20 24 03/13/2024 XR, humer us No observ ation record ed. Not Available 03/19 11:13:02 03/28/20 24 03/13/2024 XR, forea rm, 2 view No observ ation record ed. Not Available 03/19 11:13:02 04/01/20 XR, elbow No observ ation record ed. [email or web address] [facility] [place] [address], [place], [address], 04/01/2024 15:15:54 04/01/20 24 XR, wrist No observ ation record ed. [email or web address] [facility] [place] [address], [place], [address], 04/01/2024 15:16:27 Result Notes None recorded. Problems Name Problem SNOMED Code Status Onset Date Resolution Date Notes Provider Name and Address Organization Details Recorded Time Pain of left shoulder joint 7050873106821 9109 Active 2021 Not Available [facility] 3 01:50:41 Partial thickness rotator cuff tear 971734357 Active 2021 Not Available [facility] 3 01:50:41 Partial thickness rotator cuff tear Active 2021 [facility] Available [facility] 01:50:41 Spinal stenosis in cervical region 03947763 Active 2021 Not Available [facility] 3 01:50:41 Pain of left elbow joint 7244393153288 9104 Active 2023 GARY Lassiter, [place] [employer] [facility] [employer] [facility] 4 14:20:29 Pain of left wrist 8291847118984 02 Active 2023 Barby Webb null, behaview [facility] 4 14:53:18 Sprain of left wrist 3386250068944 9104 Active 2023 VANESA Kong [address], [place], [address] , behaview [facility] 4 15:16:49 Closed fracture of head of left radius 5374037929949 9101 Active 2023 VANESA Kong [address], [address], [place], [address] , behaview [facility] [employer] [facility] 4 15:16:59 Problem Notes None recorded. Procedures Surgical History Date Name Laterality Status Provider Name and Address Organization Details Recorded Time Neck Surgeries completed Not Available [facility] 01/18/2023 01:49:01 Foot Surgery completed GARY Lassiter [facility] [employer] [facility] 04/01/2024 14:18:55 Hysterectomy, Partial completed GARY Lassiter [facility] [employer] [facility] 04/01/2024 14:19:04 Imaging Results Imaging Date Name Status LastModified by Organiz ation Details LastModified Time 07/04/2022 XR, shoulder, 2 or more view completed [id number] Information not available 01/18/2023 01:52:42 07/04/2022 XR, elbow, 3 or more view completed [id number] Information not available 01/18/2023 01:52:42 07/04/2022 XR, knee, 4 or more view completed [id number] Information not available 01/18/2023 01:52:42 09/19/2022 MRI, shoulder, w/o contrast completed [id number] Information not available 01/18/2023 01:52:42 03/26/2024 MRI, elbow, w/o contrast completed Information not available 03/28/2024 11:13:02 03/13/2024 XR, humerus completed Information not available 03/28/2024 11:13:02 03/13/2024 XR, forearm, 2 view completed Information not available 03/28/2024 11:13:02 04/01/2024 XR, elbow completed [email or web address] [facility] [place] [address] [facility] [address], [place], [address], 04/01/2024 15:15:54 04/01/2024 XR, wrist completed [email or web address] [facility] [place] [address], [place], [address], 04/01/2024 15:16:27 Procedure Notes None recorded. Medical Equipment None Reported. Allergies Allergen ID Allergen Name Allergen Category Reaction Reaction Severity Criticality Documentation Date Start Date Code Code System Note Provider Name and Address Organization Details Recorded Time 95436 Non-stero idal anti-infl ammatory agent (product) medicatio n swelling Not available Not available 04/01/2024 50495 005 SNOMED Monika Houser, [place], [place] [facility] [place] [employer] [facility] 4 14:16:42 Medications Name Sig Start Date Stop Date Status Note LastModified by Organization Details LastModified Time cyclobenzap rine 10 mg tablet TAKE 1 TABLET BY MOUTH THREE TIMES DAILY NEEDED FOR MUSCLE SPASMS 09/21 completed Not Available Not Available Not Available amoxicillin 500 mg capsule TAKE 1 CAPSULE BY MOUTH 3 TIMES A DAY UNTIL GONE 09/21 completed Not Available Not Available Not Available prednisone 10 mg tablet PLEASE SEE ATTACHED FOR DETAILED DIRECTION S 04/01 completed Not Available Not Available Not Available atorvastati n 20 mg tablet 04/01 completed Not Available Not Available Not Available atorvastati n 10 mg tablet 09/21 completed Not Available Not Available Not Available fluconazole 150 mg tablet TAKE ONE TABLET BY MOUTH A ONE-TIME DOSE 04/01 completed Not Available Not Available Not Available hydrocodone 5 mg-acetamin ophen 325 mg tablet TAKE 1 TABLET BY MOUTH EVERY 8 HOURS NEEDED FOR PAIN active Not Available Not Available No t Available allopurinol 100 mg tablet TAKE 2 TABLETS BY MOUTH ONCE DAILY active Not Available Not Available No t Available omeprazole 40 mg capsule,del ayed release TAKE 1 CAPSULE BY MOUTH ONCE DAILY 04/01 completed Not Available Not Available Not Available prednisone 10 mg tablets in a dose pack Take 1 tab by mouth, 3 times a day for 3 daysTake 1 tab by mouth 2 times a day for 2 daysTake 1 tab by mouth once a day for 1 day 04/01 completed Not Available Not Available Not Available nadolol 20 mg tablet TAKE 1/2 (ONE-HALF ) TABLET BY MOUTH ONCE DAILY active Not Available Not Available No t Available losartan 100 mg-hydrochl orothiazide 25 mg tablet active Not Available Not Available Not Available Kenalog 10 mg/mL suspension for injection In office injection administe red by the provider 04/01 completed [facility]: [phone], [id number], 02/17 Not Available Not Available Not Available Advil 200 mg tablet Take 1 tablet every 6 hours by oral route. 04/01 completed Not Available Not Available Not Available ondansetron 4 mg disintegrat ing tablet DISSOLVE 1 TABLET IN MOUTH EVERY 6 HOURS NEEDED 04/01 completed Not Available Not Available Not Available fluticasone propionate 50 mcg/actuati on nasal spray,suspe nsion 09/21 completed Not Available Not Available Not Available doxycycline hyclate 100 mg tablet TAKE 1 TABLET BY MOUTH TWICE DAILY 04/01 completed Not Available Not Available Not Available amoxicillin 875 mg-potassiu m clavulanate 125 mg tablet TAKE 1 TABLET BY MOUTH EVERY 12 HOURS 04/01 completed Not Available Not Available Not Available potassium chloride ER 10 mEq tablet,exte nded release(par t/cryst) active Not Available Not Available Not Available ropivacaine (PF) 5 mg/mL (0.5 %) injection solution Take 40 mg by injection route. 04/01 completed G0120 422, 01/17 Not Available Not Available Not Available potassium chloride ER 20 mEq tablet,exte nded release 04/01 completed Not Available Not Available Not Available Vitals Date Recorded Body mass index (BMI) Body height Body weight Provider Name and Address Organization Details Last Updated DateTime 09/21/2022 40.4 kg/m2 167.64 cm 586900.09 g Not Available [facility] 01/18/2023 01:49:50 Date Recorded Body height Body weight Body mass index (BMI) Provider Name and Address Organization Details Last Updated DateTime 04/01/2024 198.12 cm 371214.17 g 27.7 kg/m2 GARY Lassiter [place] [employer] [facility] 04/01/2024 14:15:52 Social History Question Answer Notes LastModified by Organizat ion Details LastModified Time Tobacco Smoking Status Former Smoker Not Available [facility] 01/18/2023 01:48:21 When Did You Quit Smoking? 11-15yearssi [email or web address] ette [id number] Information not available 01/18/2023 What Was The Date Of Your Most Recent Tobacco Screening? 04/01/2024 [email or web address] Information not available 04/01/2024 Sex: Unknown Functional Status Question Answer Note LastModified by Organization D etails LastModified Time What is your level of alcohol consumption? None [email or web address] Information not available 04/01/2024 Mental Status None recorded. Family History Relationship Description Onset Age of this Age Resolved Age Notes LastModified by Organization Details LastModified Time Father Heart disease [id number] Not available 01/18/2023 01:49:04 Father Hypertensive disorder [id number] Not available 01/18/2023 01:49:04 Medical History Condition Response ARTHRITIS Y GOUT Y HYPERTENSION Y Gynecological HistoryNo gynecological history recorded. Obstetrics History GPAL:G 0 P 0 0 0 0 Past Encounters Encounter ID Performer Location Encounter Start Date Encounter Closed Date Diagnosis/Indication Diagnosis SNOMED-CT Code Diagnosis ICD10 Code Diagnosis Note [id number] Nii Clark MD [facility] [place] [address] [place] [address] 09/21/2022 00:00:00 09/21/2022 10:18:06 [id number] Paul Davila MD [facility] [place] [address] [facility] [address] [place] [address] 04/01/2024 13:50:28 04/01/2024 15:17:08 Pain of left elbow joint 0941247407 1667824 M25.522 Pain of left wrist 03923 70647 06661 M25.532 Sprain of left wrist 789 1658102 0582812 S63.502A Closed fra cture of head of left radius 2466950023 7174283 S52.125A Health Concerns Section Related Observation LastModified by Organization Detai ls LastModified Time None Recorded Concern Status LastModified by Organization Details LastModified Time None Recorded Advance Directives Directive None Recorded Payers Encounter Date Sequence Insurance Name Policy Number Policy Arroyo Covered Member ID Arroyo Member ID Guarantor Name 04/01/2024 1 [facility] (MEDICARE REPLACEMENT/A DVANTAGE - HMO) [id number] Laury Tillman [id number] Laury Tillman Notes Date Note Type Note Provider Name and Address Organization Details Recorded Time 09/21/2022 text/html ShoulderReported bypatient.Hand Dominance:right Location:left; anterior; lateral Quality:throbbing; frequent Severity:moderate Timing:recurrent; occasional Duration:continuous since onset Aggravating Factors:pushing/pulli ng; throwing; damp weather Alleviating Factors:rest; elevation; stretching; NSAIDs Associated Symptoms:no weakness; no numbness; no tingling; no redness; no ecchymosis; no catching/locking; no popping/clicking; no buckling; no grinding; no instability; no radiation down arm; no drainage; no fever; no chills; no weight loss; no change in bowel/bladder habits;swelling;warmt h Not Available [place] [facility] 09/21/2022 10:18:06 04/01/2024 text/html patient is a 69-year-old female who suffered an injury to her left elbow and wrist 03/13/2024. This was about 3 weeks ago. She initially had x-rays of her elbow and humerus which were read as negative for any acute fracture lesion or mass however I have reviewed them today and I do see a nondisplaced fracture through the head of the radius at the elbow. She was continued to have a lot of pain she went to see her primary care physician and an MRI scan was performed. MRI scan does show the nondisplaced fracture at the junction of the radial head and neck nondisplaced. The collateral ligaments were unable to be evaluated as the patient could not tolerate the length of the MRI scan exam. She does have a partial tear of the common extensor tendon at the attachment of the lateral humeral epicondyle. She is tender here has no effusion or swelling no bruising today she still has some stiffness has been trying to work on some very gentle range of motion but otherwise it has been protecting it. She still lacks about 10 of extension maybe 30 of flexion. She has pain through the arc of motion can not do anything heavy repetitive also has reproduction of pain with pronation and supination of the left forearm. She is also complaining of some pain in the wrist on the left over the radial styloid region into the snuffbox and dorsum of the radius. No x-rays were performed at the time we will get new x-rays today of that. Denies any neurovascular deficits otherwise. States her pain is about 3 on a scale 1-10. A past medical history sheet was reviewed and signed on intake sheet of today's date drug allergies current medications family social history previous surgical history 10 point review of systems Were reviewed and discussed in detail today with the patient. VANESA Kong [address], [facility] [address], [place], [address], [place] [employer] [facility] 04/01/2024 15:17:17 OBGyn Episode No OBEpisode recorded.
--- OUTSIDE RECORDS SUMMARY | 2025-04-06 13:34 | XMS_ITS | Clinical Summary ---
Author Organization [facility] Address [address] [place] [phone] Care Team Providers Care Gym Manager Name Role Phone Da Malcolm MD Primary Care Provider + [phone] Clarence Colon MD Unavailable [phone] Allergies Active Allergy Reactions Criticality Noted Date Comments Nsaids (Non-Steroidal Anti-Inflammatory Drug) Edema Reaction: SWELLING, Prednisone Palpitations High 02/09/2015 Medications losartan (COZAAR) 50 mg tablet Take 1 tablet (50 mg total) by mouth daily 05/01/2020 Active potassium chloride ER (potassium chloride ER) 10 mEq CR tablet every other day 02/09/2015 Active nadoloL (CORGARD) 20 mg tablet Take 0.5 tablets (10 mg total) by mouth nightly Takes half tab at bedtime Active allopurinoL (ZYLOPRIM) 100 mg tablet Take 1 tablet (100 mg total) by mouth daily Active omeprazole (PriLOSEC) 40 mg capsule Take 1 capsule (40 mg total) by mouth daily Active vitamin A 2,400 mcg (8,000 units) capsule Take 2,400 Units by mouth daily Active cholecalciferol (VITAMIN D-3) 2000 unit capsule 1 capsule (2,000 Units total) daily Active HYDROcodone-jose alberto taminophen (NORCO) 5-325 mg per tabletIndicatio ns:Pain Take 1-2 tablets by mouth every 4 (four) hours as needed for pain 30 tablet 09/21/2023 Active Active Problems Problem Noted Date Diagnosed Date Herniated lumbar intervertebral disc 09/04/2023 Spinal stenosis of lumbar region 09/04/2023 Thyroid nodule 06/24/2020 Surgical History Surgery Date Site/Laterality Comments NECK SURGERY Neck Surgery - X2 in 2001,2009 (Added by TW Conv) BACK SURGERY Lower Back Surgery - (Added by TW Conv) [place] TOTAL ABDOMINAL HYSTERECT W/WO RMVL TUBE OVARY Hysterectomy - partial 1977 (Added by TW Conv) FOOT SURGERY Foot Surgery Left - May 06 2014 (Added by TW Conv) [place] REPAIR RECTOCELE SEPARATE PROCEDURE Rectocele Repair - 05-19-14 (Added by TW Conv) TONSILLECTOMY Medical History Medical History Date Comments Anxiety Arthritis High cholesterol Tachycardia Hypertension Family History Medical History Relation Name Comments Arthritis Father Family history of arthritis - (Added by TW Conv) Cancer Father Family history of malignant neoplasm - (Added by TW Conv) Gout Father Family history of gout - (Added by TW Conv) Heart disease Father Family history of cardiac disorder - (Added by TW Conv) Hypertension Father Family history of hypertension - (Added by TW Conv) Kidney disease Father Family histor y of kidney disease - (Added by TW Conv) Cancer Father's Brother Arthritis Mother Family history of arthritis - (Added by TW Conv) Bleeding Disorder Mother Family his tory of bleeding disorder - (Added by TW Conv) Hypertension Mother Family history of hypertension - (Added by TW Conv) Lung disease Mother Family history of lung disease - (Added by TW Conv) Relation Name Status Comments Father Father's Brother Mother Social History Tobacco Use Types Packs/Day Years Used Date Smoking Tobacco: Former Smokeless Tobacco: Never Tobacco Cessation:Counseling Given: Not Answered Alcohol Use Standard Drinks/Week Comments Never 0 (1 standard drink = 0.6 oz pur e alcohol) AUDIT-C Answer Date Recorded Frequency of Alcohol Consumption Never 06/24/2020 Average Number of Drinks Not on file 020 Frequency of Binge Drinking Not on file 0804/2020 Personal Safety Answer Date Recorded Have you ever been in or are you currently in a harmful physical or emotional relationship or is someone making you feel afraid or unsafe? 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 TECHNICIAN Gender Identity Not on file Sexual Orientation Not on file Obstetrics History Last Filed Vital Signs Vital Sign Reading Time Taken Comments Blood Pressure 123/65 09/23/2023 12:20 PM IP/MOSAIC TECHNICIAN Pulse 79 09/23/2023 12:20 PM IP/MOSAIC TECHNICIAN Temperature 36.8 C (98.2 F) 09/23/2023 12:20 PM IP/MOSAIC TECHNICIAN Respiratory Rate 18 09/23/2023 12:20 PM IP/MOSAIC TECHNICIAN Oxygen Saturation 94% 09/23/2023 12:20 PM IP/MOSAIC TECHNICIAN Inhaled Oxygen Concentration - - Weight 108.9 kg (240 lb) 09/21/2023 12:31 PM CDT Height 167.6 cm (5' 6 ) 09/21/2023 12:31 PM CDT Body Mass Index 38.74 09/21/2023 12:31 PM CDT Plan of Treatment Health Maintenance Due Date Last Done Comments Breast Cancer Screening-Mammogram 1955 Colon Cancer Screening-Colonoscopy 1955 Depression Screening 1955 Hepatitis C Screening 1955 Osteoporosis Screening-Bone Density Scan 1955 DTaP/Tdap/Td Vaccine (1 - Tdap) 1966 Hepatitis B Screening 1973 Pneumococcal vaccine 65+ (1 of 1 - PCV) 2005 Zoster Vaccine (1 of 2) 2005 Well Visit 65+ 02/16/2020 Fall Risk Assessment 09/23/2024 09/23/2023 Influenza Vaccine (Season Ended) 2025 Insurance HUMANA CHOICE MEDICARE PPO [employer] CHOICE MEDICARE PPO [employer] CHOICE MEDICARE PPO Advance Directives For more information, please contact: [phone] * Full Code (Latest Code Status on File) Date Activated Date Inactivated Comments 09/21/2023 6:51 PM 09/23/2023 7:28 PM Care Teams Gym Manager Relationship Specialty Start Date End Date Da Malcolm MD [address] [place] [address] PCP - General 05/31/10 Clarence Colon MD [address] [facility] [address] [address] [place] [address] Consulting Physician Neurosurgery 09/21/23
--- OUTSIDE RECORDS SUMMARY | 2025-04-06 13:34 | XMS_ITS | Referral Summary ---
Author Organization [facility] Address [facility] [place] [address] Care Team Providers Care Systems Technician Name Role Phone Da Malcolm MD Primary Care Provider + [phone] Clarence Colon MD Unavailable [phone] Allergies Active Allergy Reactions Criticality Noted Date [...] of lumbar region 09/04/2023 Thyroid nodule 06/24/2020 Social History Tobacco Use Types Packs/Day Years Used Date Smoking Tobacco: Former Smokeless Tobacco: Never Tobacco Cessation:Counseling Given: Not Answered Alcohol Use Standard Drinks/Week Comments Never 0 (1 standard drink = 0.6 oz pur e alcohol) AUDIT-C Answer Date Recorded Frequency of Alcohol Consumption Never 06/24/2020 Average Number of Drinks Not on file 020 Frequency of Binge Drinking Not on file 04/2020 Personal Safety Answer Date Recorded Have you ever been in or are you currently in a harmful physical or emotional relationship or is someone making you feel afraid or unsafe? Denies 09/22/2023 Comments No Sex and Gender Information Value Date Recorded Sex Assigned at Not on file Legal Sex Female 12:37 AM CUSTOMER SUPPORT ADVISOR Gender Identity Not on file Sexual Orientation Not on file Last Filed Vital Signs Vital Sign Reading Time Taken Comments Blood Pressure 123/65 09/23/2023 12:20 PM CUSTOMER SUPPORT ADVISOR Pulse 79 09/23/2023 12:20 PM CUSTOMER SUPPORT ADVISOR Temperature 36.8 C (98.2 F) 09/23/2023 12:20 PM CUSTOMER SUPPORT ADVISOR Respiratory Rate 18 09/23/2023 12:20 PM CUSTOMER SUPPORT ADVISOR Oxygen Saturation 94% 09/23/2023 12:20 PM CUSTOMER SUPPORT ADVISOR Inhaled Oxygen Concentration - - Weight 108.9 kg (240 lb) 09/21/2023 12:31 PM CDT Height 167.6 cm (5' 6 ) 09/21/2023 12:31 PM CDT Body Mass Index 38.74 09/21/2023 12:31 PM CDT Plan of Treatment Not on file Insurance HU[employer]NA CHOICE MEDICARE PPO [employer] CHOICE MEDICARE PPO [employer] CHOICE MEDICARE PPO Advance Directives For more information, please contact: [phone] * Full Code (Latest Code Status on File) Date Activated Date Inactivated Comments 09/21/2023 6:51 PM 09/23/2023 7:28 PM Care Teams Systems Technician Relationship Specialty Start Date End Date Da Malcolm MD [address] [place] [address] PCP - General 05/31/10 Clarence Colon MD [address] [facility] [address] [address] Consulting Physician Neurosurgery 09/21/23
== END 2025-04-06 13:24 | disposition home or self-care (01) ==
PROVIDERS: PCP Internal Medicine; Visit Provider Internal Medicine
DX: M54.42 Lumbago with sciatica, left side (principal); M17.11 Unilateral primary osteoarthritis, right knee; M11.261 Other chondrocalcinosis, right knee; M51.369 Other intervertebral disc degeneration, lumbar region without mention of lumbar back pain or lower extremity pain; M51.379 Other intervertebral disc degeneration, lumbosacral region without mention of lumbar back pain or lower extremity pain; M16.12 Unilateral primary osteoarthritis, left hip; W19.XXXA Unspecified fall, initial encounter
CPT/HCPCS: 72100; 73502; 73562

== ENCOUNTER 2025-07-19 20:05 | Inpatient (IN) | payer MEDICARE, SELFPAY ==
[2025-07-19] VITALS (7 sets, daily range): BP systolic 95–121; BP diastolic 53–75; PULSE 66–75; RESP 16–20; TEMP 36.4–36.8; O2SAT 92–100; BMI 38.4
--- NOTE | ~2025-07-19 | XR_ITS ---
EXAMINATION: XR chest 2V DATE: 07/19/2025 20:46 INDICATION: Chest pain TECHNIQUE: PA and lateral views of the chest were obtained. COMPARISON: Chest radiograph dated 05/14/2023 FINDINGS: Increased initial pattern in the bilateral lower lung zones along with several subtle peripheral Chace B-lines at the lateral right lower lung zone and favor mild pulmonary edema over pneumonia. No pleural effusion or pneumothorax. Mild cardiomegaly. Anterior plate-screw fixation for anterior spinal fusion at a couple levels at the lower cervical spine. Moderate thoracic spondylosis. IMPRESSION: 1. Likely congestive heart failure with mild cardiomegaly and mild pulmonary edema in the lower lungs. Reviewed, dictated and finalized at location A. IMPRESSION: 1. Likely congestive heart failure with mild cardiomegaly and mild pulmonary ed inocente in the lower lungs.
--- OUTSIDE RECORDS SUMMARY | 2025-07-19 20:07 | XMS_ITS | Encounter Summary ---
Author Organization [facility] Health Address [address] [facility] [place] [address] Care Team Providers Care Camp Assistant Name Role Phone Unavailable Primary Care Provider Unavailabl e Encounter Details Date Type Department Care Team (Late st Contact Info) Description 03/04/2014 [facility] Outpatient Visit EXTERNAL NON-[facility] DEPT Fred Brooks MD [address] [phone] Social History Tobacco Use Types Packs/Day Years Used Date Smoking Tobacco: Former Cigarettes Q uit: 11/19/1998 Smokeless Tobacco: Never Alcohol Use Standard Drinks/Week Comments No 0 (1 standard drink = 0.6 oz pur e alcohol) Comments No Sex and Gender Information Value Date Recorded Sex Assigned at Not on file Legal Sex Female 3:04 PM BOTTOM SANDER Gender Identity Not on file Sexual Orientation Not on file documented as of this encounter Plan of Treatment Not on file documented as of this encounter Visit Diagnoses Not on filedocumented in this encounter
--- OUTSIDE RECORDS SUMMARY | 2025-07-19 20:07 | XMS_ITS | Clinical Summary ---
Author Organization [facility] Address [address] [place] [phone] Care Team Providers Care Mortgage Branch Manager Name Role Phone Da Malcolm MD [...] on file Legal Sex Female 2:45 AM TIP FIXER Gender Identity Not on file Sexual Orientation [...] 10:19 AM CDT Height 170.7 cm (5' 7.2) 01/09/2023 1:06 PM TIP FIXER Body Mass Index 36.9 01/09/2023 1:06 PM TIP FIXER Plan of Treatment Health Maintenance Due Date [...] 2005 OSTEOPOROSIS SCREENING 02/16/2020 INFLUENZA VACCINE (#1) 2025 RSV VACCINE (60+ or ) (1 - 1-dose 75+ series) [address] [facility] PPO [facility] HUMANA PPO MCR Care Teams Mortgage Branch Manager Relationship Specialty Start Date End Date Da Malcolm MD [address] [place] [address] PCP - General Internal Medicine 01/09/23
--- OUTSIDE RECORDS SUMMARY | 2025-07-19 20:07 | XMS_ITS | Clinical Summary ---
Author Organization [facility] Address [address] [place] [phone] Care Team Providers Care Vault Maker Name Role Phone Da Malcolm MD Primary Care Provider [phone] Clarence Colon MD Unavailable [phone] Allergies Active Allergy Reactions Criticality Noted Date [...] Back Surgery - (Added by TW Conv) [place] TOTAL ABDOMINAL HYSTERECT W/WO RMVL TUBE OVARY Hysterectomy - partial 1977 (Added by TW Conv) FOOT SURGERY Foot Surgery Left - May 06 2014 (Added by TW Conv) [place] REPAIR RECTOCELE SEPARATE PROCEDURE Rectocele Repair - [...] on file Legal Sex Female 12:37 AM MSW Gender Identity Not on file Sexual Orientation Not on file Obstetrics History Last Filed Vital Signs Vital Sign Reading Time Taken Comments Blood Pressure 123/65 09/23/2023 12:20 PM MSW Pulse 79 09/23/2023 12:20 PM MSW Temperature 36.8 C (98.2 F) 09/23/2023 12:20 PM MSW Respiratory Rate 18 09/23/2023 12:20 PM MSW Oxygen Saturation 94% 09/23/2023 12:20 PM MSW Inhaled Oxygen Concentration - - Weight 108.9 kg (240 lb) 09/21/2023 12:31 PM CDT Height 167.6 cm (5' 6) 09/21/2023 12:31 PM CDT Body Mass Index [...] Fall Risk Assessment 09/23/2024 09/23/2023 Influenza Vaccine (#1) 2025 Insurance HUMANA CHOICE MEDICARE PPO [employer] CHOICE MEDICARE PPO [employer] CHOICE MEDICARE PPO Advance Directives For more information, please contact: [phone] * Full Code (Latest Code Status on File) Date Activated Date Inactivated Comments 09/21/2023 6:51 PM 09/23/2023 7:28 PM Care Teams Vault Maker Relationship Specialty Start Date End Date aD Malcolm MD [address] [place] [address] PCP - General 05/31/10 Clarence Colon MD [address] [place] [address] Consulting Physician Neurosurgery 09/21/23
--- OUTSIDE RECORDS SUMMARY | 2025-07-19 20:07 | XMS_ITS | Clinical Summary ---
Author Organization [facility] Address [address] [facility] [place] [address] Care Team Providers Care Rural Sociologist Name Role Phone Unavailable Primary Care Provider Unavailabl e Source Comments [facility],non-owned Affiliates and Associated Physician Practices is amultiple site organization consisting of ambulatory clinics and hospital sitesin [place], [place], [place] and [place]. This disclosure is being madepursuant to the Care Everywhere program and may not contain all information available regarding this patient. Last updated 18.[facility] Allergies Active Allergy Reactions Criticality Noted Date [...] on file Legal Sex Female 3:04 PM ANIMAL SHELTER MANAGER Gender Identity Not on file Sexual [...] 3:27 PM CDT Height 168.9 cm (5' 6.5) 06/12/2014 3:27 PM CDT Body Mass Index [...] season) 2024 DEPRESSION SCREENING 11/19/2024 INFLUENZA VACCINE (#1) 2025 Respiratory Syncytial Virus (RSV) Vaccine Pt: [...] previously scheduled. Procedure Code(s): --- Professional --- 01296, Colonoscopy, flexible, proximal to splenic flexure; diagnostic, with or without collection of specimen(s) by brushing or washing, with or without colon decompression (separate procedure) --- Technical --- 79547, Colonoscopy, flexible, proximal to splenic flexure; diagnostic, with or without collection of specimen(s) by brushing or washing, with or without colon decompression (separate procedure) Diagnosis Code(s): --- Professional --- V76.51, Special screening for malignant neoplasms of colon --- Technical --- V76.51, Special screening for malignant neoplasms of colon CPT copyright 2013 [employer]. All rights reserved. The codes documented in this report are preliminary and upon harmonica maker review may be revised to meet current compliance requirements. Dr. Fred Brooks MD _ Fred Brooks MD 05/19/2014 8:33 AM This report has been signed electronically. Number of Addenda: 0 Note Initiated On: 05/19/2014 7:07 AM [facility] 05/19/2014 7:07 AM CDT Anca [employer] CHECK VIEWER-PLATE PREPARER GI PROCEDURE ORDERABLES Edited Result - [place] [address] from Last 3 Months or Most Recently Relevant to Health Maintenance Insurance Advance Directives * Full Code (Latest Code Status on File) Date Activated Date Inactivated Comments 05/19/2014 12:50 PM 05/21/2014 1:43 PM
--- OUTSIDE RECORDS SUMMARY | 2025-07-19 20:07 | XMS_ITS | Encounter Summary ---
Author Organization [employer] Address [address] [place] [address] Care Team Providers Care Bindery Helper Name Role Phone Da Malcolm MD Primary Care Provider + Encounter Details Date Type Department Care Team (Late st Contact Info) Description 05/19/2002 Outpatient [facility] [place] [facility] [address] [place] [address] 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
--- OUTSIDE RECORDS SUMMARY | 2025-07-19 20:07 | XMS_ITS | Encounter Summary ---
Author Organization [facility] Address [address] [place] [address] Care Team Providers Care Automatic Maintainer Name Role Phone Da Malcolm MD Primary Care Provider + Encounter Details Date Type Department Care Team (Late st Contact Info) Description 05/15/2023 Lab Requisition [facility] [place] [address] [place] [phone] [facility], External Provider [address] [place] [address] Social History Tobacco Use Types Packs/Day Years Used Date Smoking Tobacco: Former Cigarettes 0.5 20 0 11/19/1972 - 11/19/1992 Smokeless Tobacco: Never Alcohol Use Standard Drinks/Week Comments Never 0 (1 standard drink = 0.6 oz pur e alcohol) Comments Unknown Sex and Gender Information Value Date Recorded Sex Assigned at Not on file Legal Sex Female 2:45 AM FAST FOOD MANAGER Gender Identity Not on file Sexual Orientation Not on file documented as of this encounter Plan of Treatment Not on file documented as of this encounter Procedures Procedure Name Priority Date/Time Associated Diagnosis Comments D-DIMER Stat 05/15/2023 10:20 AM CDT documented in this encounter Results * D-DIMER (05/15/2023 10:20 AM CDT) D-DIMER QUANT 0.38 <0.42 ug/mL FEU 05/15/2023 11:25 AM CDT [facility] [employer] [facility] Blood Collection / Unknown 05/15/2023 10:20 AM CDT 05/15/2023 11:01 AM CDT Narrative [facility] - 05/15/2023 11:25 AM CDT D-Dimer assay [...] years: 0.71-0.80 ug/mL FEU us External Provider [facility] HEMATOLOGY ORDERABLES Fi nal Result [facility] LABOR[facility]ORY [facility]# [id number] [address] [facility] [place] [address] documented in this encounter Visit Diagnoses Not on filedocumented in this encounter Care Teams Automatic Maintainer Relationship Specialty Start Date End Date Da Malcolm MD [address] [place] [address] PCP - General Internal Medicine 01/09/23 documented as of this encounter
--- OUTSIDE RECORDS SUMMARY | 2025-07-19 20:07 | XMS_ITS | Clinical Summary ---
Author Organization [facility] Address [address] [place] [address] Care Team Providers Care Idea Worker Name Role Phone Reyes Aguilar MD Unavailable [...] GENERIC - COMMERCIAL on file Care Teams Idea Worker Relationship Specialty Start Date End Date Reyes Aguilar MD [place] Adjuster Electrical Contacts INTERVENTIONAL CARDIOLOGY 03/22/18
--- OUTSIDE RECORDS SUMMARY | 2025-07-19 20:07 | XMS_ITS | Encounter Summary ---
Author Organization [employer] Address [address] [place] [address] Care Team Providers Care Wood Tool Maker Name Role Phone Da Malcolm MD Primary Care Provider + Encounter Details Date Type Department Care Team (Late st Contact Info) Description 06/02/2002 Outpatient [facility] [address] [place] [address] [place] [address] Jodi Ulloa MD NO ADDRESS ON FILE Social History Tobacco Use Types Packs/Day Years Used Date Smoking Tobacco: Never Assessed Comments Unknown Sex and Gender Information Value Date Recorded Sex Assigned at Not on file Legal Sex Female 2:45 AM HOSPICE MUSIC THERAPIST Gender Identity Not on file Sexual Orientation Not on file documented as of this encounter Plan of Treatment Not on file documented as of this encounter Visit Diagnoses Not on filedocumented in this encounter Care Teams Wood Tool Maker Relationship Specialty Start Date End Date Da Malcolm MD [address] [place] [phone] PCP - General Internal Medicine 01/09/23 documented as of this encounter
--- OUTSIDE RECORDS SUMMARY | 2025-07-19 20:07 | XMS_ITS | Encounter Summary ---
Author Organization [facility] Address [address] [place] [address] Care Team Providers Care Loin Puller Name Role Phone Unavailable Primary Care Provider Unavailabl e Encounter Details Date Type Department Care Team (Late st Contact Info) Description 02/27/2014 [facility] Outpatient Visit EXTERNAL NON-[facility] DEPT Fred Brooks MD [address] [phone] Social History Tobacco Use Types Packs/Day Years Used Date Smoking Tobacco: Former Cigarettes Q uit: 11/19/1998 Smokeless Tobacco: Never Alcohol Use Standard Drinks/Week Comments No 0 (1 standard drink = 0.6 oz pur e alcohol) Comments No Sex and Gender Information Value Date Recorded Sex Assigned at Not on file Legal Sex Female 3:04 PM VALVE MACHINE OPERATOR Gender Identity Not on file Sexual Orientation Not on file documented as of this encounter Plan of Treatment Not on file documented as of this encounter Visit Diagnoses Not on filedocumented in this encounter
--- OUTSIDE RECORDS SUMMARY | 2025-07-19 20:07 | XMS_ITS | Encounter Summary ---
Author Organization [employer] Address [address] [place] [address] Care Team Providers Care Instructor Knitting Name Role Phone Da Malcolm MD Primary Care Provider + Encounter Details Date Type Department Care Team (Late st Contact Info) Description 05/19/2002 Outpatient [facility] [address] [place] [address] [place] [address] Jodi Ulloa MD NO ADDRESS ON FILE Social History Tobacco Use Types Packs/Day Years Used Date Smoking Tobacco: Never Assessed Comments Unknown Sex and Gender Information Value Date Recorded Sex Assigned at Not on file Legal Sex Female 2:45 AM PATIENT FLOW COORDINATOR Gender Identity Not on file Sexual Orientation Not on file documented as of this encounter Plan of Treatment Not on file documented as of this encounter Visit Diagnoses Not on filedocumented in this encounter Care Teams Instructor Knitting Relationship Specialty Start Date End Date Da Malcolm MD [address] [place] [phone] PCP - General Internal Medicine 01/09/23 documented as of this encounter
--- NOTE | 2025-07-19 20:08 | ECG_ITS ---
Test Date: 2025-07-19 20:13:07 Measurements Intervals Electra Rate: 67 P: 15 MO: 161 QRS: -52 QRSD: 134 T: -62 QT: 475 QTc: 505 Interpretive Statements SINUS RHYTHM RIGHT BUNDLE BRANCH BLOCK LEFT ANTERIOR FASCICULAR BLOCK T WAVE ABNORMALITY IN ANTEROLAT/INF LEADS- CONSIDER ISCHEMIA BASELINE ARTIFACT- I, II, AVR, AVL ABNORMAL ECG No previous ECG available for comparison Electronically Signed On 07-19-2025 21:24:22 CDT by Wilbert Olivo D.O.
[2025-07-19 20:35] LABS: Hematocrit 36.5 % (37.0-47.0); Hemoglobin 11.8 g/dL (12.0-15.0); Immature Granulocyte Percent A 0.3 % (0-0.5); Lymphocytes Absolute Auto 2.63 K/mm3 (0.9-3.2); Mean Corpuscular HGB Conc 32.3 g/dl (32-36); Mean Corpuscular Hemoglobin 31.4 pg (26-34); Mean Corpuscular Volume 97.1 fl (80-100); Nucleated Red Blood Cells Absolute Auto 0.000 K/mm3 (0.0-0.012); Nucleated Red Blood Cells Perc 0.0 % (0.0-0.2); Platelet Count Result 251 k/mm3 (150-375); Red Blood Count 3.76 M/mm3 (4.2-5.4); White Blood Count 7.6 K/mm3 (4.5-10.0)
[2025-07-19 20:48] LABS: Alanine Aminotransferase 16 U/L (6-35); Albumin Level 4.7 g/dL (3.5-5.1); Alkaline Phosphatase 71 U/L (38-126); Anion Gap 7 mmol/L (4-12); Aspartate Amino Transferase 39 U/L (14-36); Bilirubin,Total 0.5 mg/dL (0.2-1.3); Blood Urea Nitrogen 16 mg/dL (7-17); Calcium 9.4 mg/dL (8.4-10.2); Carbon Dioxide 26 mmol/L (22-30); Chloride 98 mmol/L (98-107); Estimated CRCL calculation 64 ml/min; Estimated Glomerular Filt Rate > 60; Glucose 104 mg/dL (65-110); Lipase 179 U/L (23-300); Potassium 4.1 mmol/L (3.4-5.0); Sodium 131 mmol/L (137-145); Total Protein 7.7 g/dL (6.3-8.2)
[2025-07-19 20:49] LABS: INR 1.0; Prothrombin Time 13.1 Seconds (11.1-14.7)
[2025-07-19 20:50] LABS: Partial Thromboplastin Time 28.0 Seconds (22.3-36.8)
[2025-07-19 21:01] LABS: Troponin I 1.950 ng/mL (0.000-0.034)
--- OUTSIDE RECORDS SUMMARY | 2025-07-19 21:37 | XMS_ITS | Encounter Summary ---
Author Organization [facility] Address [address] [place] [address] Care Team Providers Care Switchboard Operator Assistant Name Role Phone Da Malcolm MD Primary Care Provider + Encounter Details Date Type Department Care Team (Late st Contact Info) Description 05/19/2002 Outpatient [facility] [address] [place] [address] [place] [address] Jodi Ulloa MD NO ADDRESS ON FILE Social History Tobacco Use Types Packs/Day Years Used Date Smoking Tobacco: Never Assessed Comments Unknown Sex and Gender Information Value Date Recorded Sex Assigned at Not on file Legal Sex Female 2:45 AM FLATWORK PRESSER Gender Identity Not on file Sexual Orientation Not on file documented as of this encounter Plan of Treatment Not on file documented as of this encounter Visit Diagnoses Not on filedocumented in this encounter Care Teams Switchboard Operator Assistant Relationship Specialty Start Date End Date Da Malcolm MD [address] [place] [phone] PCP - General Internal Medicine 01/09/23 documented as of this encounter
--- OUTSIDE RECORDS SUMMARY | 2025-07-19 21:37 | XMS_ITS | Encounter Summary ---
Author Organization [facility] Address [address] [place] [address] Care Team Providers Care Permastone Mechanic Name Role Phone Da Malcolm MD Primary Care Provider + Encounter Details Date Type Department Care Team (Late st Contact Info) Description 05/15/2023 Lab Requisition [facility] [place] [address] [place] [phone] [facility], External Provider [address] [place] [address] Social History Tobacco Use Types Packs/Day Years Used Date Smoking Tobacco: Former Cigarettes 0.5 20 0 11/19/1972 - 11/19/1992 Smokeless Tobacco: Never Alcohol Use Standard Drinks/Week Comments Never 0 (1 standard drink = 0.6 oz pur e alcohol) Comments Unknown Sex and Gender Information Value Date Recorded Sex Assigned at Not on file Legal Sex Female 2:45 AM DREDGE PUMP OPERATOR Gender Identity Not on file Sexual Orientation Not on file documented as of this encounter Plan of Treatment Not on file documented as of this encounter Procedures Procedure Name Priority Date/Time Associated Diagnosis Comments D-DIMER Stat 05/15/2023 10:20 AM CDT documented in this encounter Results * D-DIMER (05/15/2023 10:20 AM CDT) D-DIMER QUANT 0.38 <0.42 ug/mL FEU 05/15/2023 11:25 AM CDT [facility] [employer] [facility] Blood Collection / Unknown 05/15/2023 10:20 AM CDT 05/15/2023 11:01 AM CDT Narrative [facility] - 05/15/2023 11:25 AM CDT D-Dimer [...] years: 0.71-0.80 ug/mL FEU us External Provider [facility] HEMATOLOGY ORDERABLES Fi nal Result [facility]# [id number] [address] [facility] [address] documented in this encounter Visit Diagnoses Not on filedocumented in this encounter Care Teams Permastone Mechanic Relationship Specialty Start Date End Date Da Malcolm MD [address] [place] [phone] PCP - General Internal Medicine 01/09/23 documented as of this encounter
--- OUTSIDE RECORDS SUMMARY | 2025-07-19 21:37 | XMS_ITS | Encounter Summary ---
Author Organization [facility] Address [address] [place] [address] [address] Team [address] Care Ct Scan Tech Name Role Phone Unavailable Primary Care Provider Unavailabl e Encounter Details Date Type Department Care Team (Late st Contact Info) Description 03/04/2014 [facility] Outpatient Visit EXTERNAL NON-[facility] DEPT Fred Brooks MD [address] [phone] Social History Tobacco Use Types Packs/Day Years Used Date Smoking Tobacco: Former Cigarettes Q uit: 11/19/1998 Smokeless Tobacco: Never Alcohol Use Standard Drinks/Week Comments No 0 (1 standard drink = 0.6 oz pur e alcohol) Comments No Sex and Gender Information Value Date Recorded Sex Assigned at Not on file Legal Sex Female 3:04 PM PROBATION OFFICER Gender Identity Not on file Sexual Orientation Not on file documented as of this encounter Plan of Treatment Not on file documented as of this encounter Visit Diagnoses Not on filedocumented in this encounter
--- OUTSIDE RECORDS SUMMARY | 2025-07-19 21:37 | XMS_ITS | Clinical Summary ---
Author Organization [facility] Address [address] [facility] [place] [address] Care Team Providers Care Veneer Repairer Machine Name Role Phone Unavailable Primary Care Provider Unavailabl e Source Comments [facility],non-owned Affiliates and Associated Physician Practices is amultiple site organization consisting of ambulatory clinics and hospital sitesin [place], [place], [place] and [place]. This disclosure is being madepursuant to the Care Everywhere program and may not contain all information available regarding this patient. 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 Procedure Code(s): --- Professional --- 50888, Colonoscopy, flexible, proximal to splenic flexure; diagnostic, with or without collection of specimen(s) by brushing or washing, with or without colon decompression (separate procedure) --- Technical --- 94340, Colonoscopy, flexible, proximal to splenic flexure; diagnostic, with or without collection of specimen(s) by brushing or washing, with or without colon decompression (separate procedure) Diagnosis Code(s): --- Professional --- V76.51, Special screening for malignant neoplasms of colon --- Technical --- V76.51, Special screening for malignant neoplasms of colon CPT copyright 2013 [employer]. All rights reserved. The codes documented in this report are preliminary and upon records assistant review may be revised to meet current compliance requirements. Dr. rFed Brooks MD _ Fred Brooks MD 05/19/2014 8:33 AM This report has been signed electronically. Number of Addenda: 0 Note Initiated On: 05/19/2014 7:07 AM [facility] END[facility] 05/19/2014 7:07 AM CDT [facility] SHIFT LEAD-TOOL OR DIE DRAWING CHECKER GI PROCEDURE ORDERABLES Edited [place] [address] from Last 3 Months or Most Recently Relevant to Health Maintenance Insurance Advance Directives * Full Code (Latest Code Status on File) Date Activated Date Inactivated Comments 05/19/2014 12:50 PM 05/21/2014 1:43 PM
--- OUTSIDE RECORDS SUMMARY | 2025-07-19 21:37 | XMS_ITS | Encounter Summary ---
Author Organization [facility] Address [address] [place] [address] Care Team Providers Care Tier In Name Role Phone Da aMlcolm MD Primary Care Provider + Encounter Details Date Type Department Care Team (Late st Contact Info) Description 05/19/2002 Outpatient [facility] [address] [place] [address] [place] [address] Jodi Ulloa MD NO ADDRESS ON FILE Social History Tobacco Use Types Packs/Day Years Used Date Smoking Tobacco: Never Assessed Comments Unknown Sex and Gender Information Value Date Recorded Sex Assigned at Not on file Legal Sex Female 2:45 AM DATA MINING ANALYST Gender Identity Not on file Sexual Orientation Not on file documented as of this encounter Plan of Treatment Not on file documented as of this encounter Visit Diagnoses Not on filedocumented in this encounter Care Teams Tier In Relationship Specialty Start Date End Date Da Malcolm MD [address] [place] [phone] PCP - General Internal Medicine 01/09/23 documented as of this encounter
--- OUTSIDE RECORDS SUMMARY | 2025-07-19 21:37 | XMS_ITS | Clinical Summary ---
Author Organization [facility] Address [address] [place] [id number] Care Team Providers Care Ratoprinter Name Role Phone Reyes Aguilar MD Unavailable [...] GENERIC - COMMERCIAL on file Care Teams Ratoprinter Relationship Specialty Start Date End Date Reyes Aguilar MD [place] Sludge Mill Operator INTERVENTIONAL CARDIOLOGY 03/22/18
--- OUTSIDE RECORDS SUMMARY | 2025-07-19 21:37 | XMS_ITS | Encounter Summary ---
Author Organization [facility] Address [address] [place] [address] Care Team Providers Care Breading Machine Tender Name Role Phone Da Malcolm MD Primary Care Provider + Encounter Details Date Type Department Care Team (Late st Contact Info) Description 06/02/2002 Outpatient [facility] [address] [place] [address] [place] [address] Jodi Ulloa MD NO ADDRESS ON FILE Social History Tobacco Use Types Packs/Day Years Used Date Smoking Tobacco: Never Assessed Comments Unknown Sex and Gender Information Value Date Recorded Sex Assigned at Not on file Legal Sex Female 2:45 AM SHREDDED FILLER CUTTER OPERATOR Gender Identity Not on file Sexual Orientation Not on file documented as of this encounter Plan of Treatment Not on file documented as of this encounter Visit Diagnoses Not on filedocumented in this encounter Care Teams Breading Machine Tender Relationship Specialty Start Date End Date Da Malcolm MD [address] [place] [phone] PCP - General Internal Medicine 01/09/23 documented as of this encounter
--- OUTSIDE RECORDS SUMMARY | 2025-07-19 21:37 | XMS_ITS | Clinical Summary ---
Author Organization [facility] Address [address] [place] [phone] Care Team Providers Care Cotton Wringer Name Role Phone Da Malcolm MD Primary [...] on file Legal Sex Female 2:45 AM MACHINE CEMENTER Gender Identity Not on file Sexual Orientation [...] 170.7 cm (5' 7.2) 01/09/2023 1:06 PM MACHINE CEMENTER Body Mass Index 36.9 01/09/2023 1:06 PM MACHINE CEMENTER Plan of Treatment Health Maintenance Due Date [...] (1 - 1-dose 75+ series) 2030 Insurance [facility] PPO [facility] HU[employer] PPO MCR Care Teams Cotton Wringer Relationship Specialty Start Date End Date Da Malcolm MD [address] [place] [phone] PCP - General Internal Medicine 01/09/23
--- OUTSIDE RECORDS SUMMARY | 2025-07-19 21:37 | XMS_ITS | Encounter Summary ---
Author Organization [facility] Health Address [address] [place] [address] Care Team Providers Care Credentialing Assistant Name Role Phone Unavailable Primary Care Provider Unavailabl e Encounter Details Date Type Department Care Team (Late st Contact Info) Description 02/27/2014 [facility] Outpatient Visit EXTERNAL NON-[facility] DEPT Fred Brooks MD [address] [phone] Social History Tobacco Use Types Packs/Day Years Used Date Smoking Tobacco: Former Cigarettes Q uit: 11/19/1998 Smokeless Tobacco: Never Alcohol Use Standard Drinks/Week Comments No 0 (1 standard drink = 0.6 oz pur e alcohol) Comments No Sex and Gender Information Value Date Recorded Sex Assigned at Not on file Legal Sex Female 3:04 PM DELTA SYSTEM FREIGHT CAR CLEANER Gender Identity Not on file Sexual Orientation Not on file documented as of this encounter Plan of Treatment Not on file documented as of this encounter Visit Diagnoses Not on filedocumented in this encounter
--- OUTSIDE RECORDS SUMMARY | 2025-07-19 21:37 | XMS_ITS | Clinical Summary ---
Author Organization [facility] Address [address] [place] [phone] Care Team Providers Care Fuel Dock Attendant Name Role Phone Da Malcolm MD Primary Care Provider [phone] Clarence Colon MD Unavailable [phone] Allergies Active Allergy Reactions Criticality Noted Date [...] Back Surgery - (Added by TW Conv) FL TOTAL ABDOMINAL HYSTERECT W/WO RMVL TUBE OVARY Hysterectomy - partial 1977 (Added by TW Conv) FOOT SURGERY Foot Surgery Left - May 06 2014 (Added by TW Conv) FL REPAIR RECTOCELE SEPARATE PROCEDURE Rectocele Repair - [...] on file Legal Sex Female 12:37 AM SWITCHING CLERK Gender Identity Not on file Sexual Orientation Not on file Obstetrics History Last Filed Vital Signs Vital Sign Reading Time Taken Comments Blood Pressure 123/65 09/23/2023 12:20 PM SWITCHING CLERK Pulse 79 09/23/2023 12:20 PM SWITCHING CLERK Temperature 36.8 C (98.2 F) 09/23/2023 12:20 PM SWITCHING CLERK Respiratory Rate 18 09/23/2023 12:20 PM SWITCHING CLERK Oxygen Saturation 94% 09/23/2023 12:20 PM SWITCHING CLERK Inhaled Oxygen Concentration - - Weight 108.9 [...] (#1) 2025 Insurance [employer] CHOICE MEDICARE PPO [id number] CHOICE MEDICARE PPO [employer] CHOICE MEDICARE PPO Advance Directives For more information, please contact: [phone] * Full Code (Latest Code Status on File) Date Activated Date Inactivated Comments 09/21/2023 6:51 PM 09/23/2023 7:28 PM Care Teams Fuel Dock Attendant Relationship Specialty Start Date End Date Da Malcolm MD [address] [place] [address] PCP - General 05/31/10 Clarence Colon MD [address] [place] [address] Consulting Physician Neurosurgery 09/21/23
--- NOTE | 2025-07-19 21:42 | PC.NURSE ---
pt refuses Aspirin. pt states it gives her ulcers
[2025-07-19] MEDS: MORPHINE SULFATE (*CRX) 4 MG/ML INJ 2 MG IV PUSH (21:53)
[2025-07-19] MEDS: NITROGLYCERIN SL 0.4 MG TABLET SUBLINGUAL (21:54)
--- NOTE | 2025-07-19 22:16 | ED.GENADULT ---
HPI - General Adult General Chief complaint: Chest Pain Stated complaint: CHEST PAIN Time Seen by Provider: 07/19/25 21:20 History of Present Illness HPI narrative: Patient is a 70-year-old female who presents emergency department chief complaint of chest pain. Patient reports that she started having pain yesterday and then today started having pain radiating down the left shoulder about 1-2 hours prior to arrival the patient states that the pain is starting to do a little bit better reports that she has had issues with a pericardial effusion Related Data Home Medications ?Medication ?Instructions ?Recorded ?Confirmed ?Last Taken ?Type cholecalciferol (vitamin D3) 125 125 mcg PO DAILY 12/16/20 03/22/23 Unknown History mcg (5,000 unit) capsule cranberry extract 500 mg capsule 500 mg PO DAILY 12/16/20 03/22/23 Unknown History (Cranberry Concentrate) fluticasone propionate 50 1 spray intranasal BID 10/04/22 03/22/23 Unknown History mcg/actuation nasal spray,suspension losartan 100 1 tablet PO DAILY 10/04/22 03/22/23 Unknown History mg-hydrochlorothiazide 25 mg tablet potassium chloride 10 mEq 10 meq PO DAILY 10/04/22 03/22/23 Unknown History tablet,extended release(part/cryst) allopurinol 100 mg tablet 100 mg PO DAILY 02/21/23 03/22/23 Unknown History nadolol 20 mg tablet 20 mg PO DAILY 03/12/23 03/22/23 Unknown History Allergies Allergy/AdvReac Type Severity Reaction Status Date / Time NSAIDS (Non-Steroidal Allergy Intermediate Swelling Verified 07/19/25 21:42 Anti-Inflamma PMFSH Past Medical History Medical History (Updated 07/19/25 @ 22:23 by Shaheen Lucas MD) Anemia Chronic GERD Hyperlipidemia Thrombocytosis Arthritis Pericarditis Pericarditis Bilateral carotid bruits Chest pain Hypertension Gout BMI 39.0-39.9,adult Surgical History Surgical History (Updated 12/19/22 @ 12:47 by Malcolm Estevez MD) Status post left foot surgery History of appendectomy History of tonsillectomy History of partial hysterectomy History of lumbar surgery (2011) Per Dr. Mendoza. History of cervical spinal surgery 2001 and [address] Brush and Reji. History of cardiac catheterization (05/2010) Angiographically normal coronary arteries. Family History Family History Sibling Family history of diabetes mellitus in first degree relative Father Family history of heart disease in male family member before age 55 Other Family history of cardiovascular disease Hypertension Social History Social History (Updated 12/19/22 @ 00:21 by Denia Valdez PA-C) Social History: Surrogate medical decision maker: Lauren Dickerson, granddaughter. Code status: Full code. Smoking packs per day: 1 Smoking cigarettes per day: 20.0 Years smoked: 20 Smoking pack-years: 20.00 Smoking status: Former smoker Tobacco type: cigarettes Smoking end date: 11/19/95 Alcohol intake: never Substance use: never Substance use type: does not use Lack of Transportation: No Lack of Food: Never True Current Housing: I Have Housing Concerned About Future Housing: No Difficulty Paying Gas/Electric Bills: No Difficulty Paying for Meds: No Currently Unemployed: No Education: Associate Degree Difficulty w/ Childcare or Family Care: No Living arrangements: alone Additional living arrangements comments: Lives alone. Additional occupation/education comments: Retired. Spiritual care concerns: No Course Vital Signs Vital signs: Vital Signs Temperature 36.4 C 07/19/25 20:12 Pulse Rate 66 07/19/25 20:12 Respiratory Rate 16 07/19/25 20:12 Blood Pressure 114/75 07/19/25 20:12 Pulse Oximetry 98 07/19/25 20:12 Temperature 36.4 C 07/19/25 20:12 Pulse Rate 75 07/19/25 22:00 Respiratory Rate 18 07/19/25 22:00 Blood Pressure 121/69 07/19/25 22:00 Pulse Oximetry 94 07/19/25 22:00 Oxygen Delivery Room Air 07/19/25 21:43 Medical Decision Making Vital Signs Vital Signs: Vital Signs Temperature 36.4 C 07/19/25 20:12 Pulse Rate 66 07/19/25 20:12 Respiratory Rate 16 07/19/25 20:12 Blood Pressure 114/75 07/19/25 20:12 Pulse Oximetry 98 07/19/25 20:12 Temperature 36.4 C 07/19/25 20:12 Pulse Rate 75 07/19/25 22:00 Respiratory Rate 18 07/19/25 22:00 Blood Pressure 121/69 07/19/25 22:00 Pulse Oximetry 94 08/31/25 22:00 Oxygen Delivery Room Air 07/19/25 21:43 Lab Data 07/19/25 20:20 07/19/25 20:20 Labs: Lab Results 07/19/25 Range/Units 20:20 WBC 7.6 (4.5-10.0) K/mm3 RBC 3.76 L (4.2-5.4) M/mm3 Hgb 11.8 L (12.0-15.0) g/dL Hct 36.5 L (37.0-47.0) % MCV 97.1 (80-100) fl MCH 31.4 (26-34) pg MCHC 32.3 (32-36) g/dl RDW 13.8 (11.5-14.5) % Plt Count 251 (150-375) k/mm3 MPV 10.1 (7.4-10.4) fl Immature Gran % (Auto) 0.3 (0-0.5) % Neut % (Auto) 56.0 (45.5-73.1) % Lymph % (Auto) 34.8 (18.3-44.2) % Charlton % (Auto) 5.8 (2.6-8.5) % Eos % (Auto) 2.6 (0-4.4) % Baso % (Auto) 0.5 (0.2-1.2) % Lymph # (Auto) 2.63 (0.9-3.2) K/mm3 Charlton # (Auto) 0.4 (0.1-0.6) K/mm3 Eos # (Auto) 0.2 (0-0.3) K/mm3 Baso # (Auto) 0.0 (0.0-0.1) K/mm3 Abs Immat Gran (auto) 0.02 (0.00-0.031) K/mm3 Absolute Neuts (auto) 4.2 (1.3-6.7) K/mm3 Absolute Nucleated RBC 0.000 (0.0-0.012) K/mm3 Nucleated RBC % 0.0 (0.0-0.2) % PT 13.1 (11.1-14.7) Seconds INR 1.0 APTT 28.0 (22.3-36.8) Seconds Sodium 131 L (137-145) mmol/L Potassium 4.1 (3.4-5.0) mmol/L Chloride 98 (98-107) mmol/L Carbon Dioxide 26 (22-30) mmol/L Anion Gap 7 (4-12) mmol/L BUN 16 (7-17) mg/dL Creatinine 0.90 (0.7-1.0) mg/dL Estim Creat Clear Calc 64 ml/min Estimated GFR > 60 (59 - ) Glucose 104 (65-110) mg/dL Calcium 9.4 (8.4-10.2) mg/dL Total Bilirubin 0.5 (0.2-1.3) mg/dL AST 39 H (14-36) U/L ALT 16 (6-35) U/L Alkaline Phosphatase 71 (38-126) U/L Troponin I 1.950 H* (0.000-0.034) ng/mL Total Protein 7.7 (6.3-8.2) g/dL Albumin 4.7 (3.5-5.1) g/dL Lipase 179 (23-300) U/L Critical Care Time Critical Care Time Critical Care Time: Yes Total Critical Care Time: 35 Discharge Plan Discharge Clinical Impression: Non-ST elevation DC (NSTEMI), Chest pain Patient Disposition: Still a Patient Condition: Stable Patient Language: Luxembourgish Prescriptions: No Action allopurinol 100 mg tablet 100 mg PO DAILY cranberry extract [Cranberry Concentrate] 500 mg capsule 500 mg PO DAILY cholecalciferol (vitamin D3) 125 mcg (5,000 unit) capsule 125 mcg PO DAILY losartan-hydrochlorothiazide 100-25 mg tablet 1 tablet PO DAILY fluticasone propionate 50 mcg/actuation Tyler,Suspension 1 spray INTRANASAL BID Rx Instructions: administer into each nostril potassium chloride 10 mEq tablet,ER particles/crystals 10 meq PO DAILY colchicine 0.6 mg capsule 0.6 mg PO BID Qty: 90 0RF nadolol 20 mg tablet 20 mg PO DAILY omeprazole 40 mg capsule,delayed release(DR/EC) 40 mg PO .daily 30 Days Qty: 30 11RF hydrocodone-acetaminophen 5-325 mg tablet 1 tablet PO Q8H PRN (Reason: pain) Qty: 14 0RF Follow-up/Referrals: Da Malcolm MD [Primary Care Provider, Internal Medicine] Time of Disposition: 22:23
[2025-07-19] MEDS: HEPARIN SOD/D5W 100 UNITS/ML 25,000 UNITS/250 ML BAG 10 UNITS IV CONT (22:54)
--- NOTE | 2025-07-19 23:49 | ADMGEN ---
This patient, Laury Tillman, was admitted to IMU Room 206-. Patient/family oriented to hospital policies and general routines including ID bracelet, bed and alarms, visiting hours, pain management, procedures, bathroom and other care routines, personal items, smoking policy, room service/diet, and visiting hours. Information on how to activate the Rapid Response Team has been discussed. Patient/Family are encouraged to report perceived risks to care and to ask questions if they do not understand what they are told or what they should do. Received report from MICHAEL Plascencia at [phone], arrived to IMU at [phone]
[2025-07-20] VITALS (16 sets, daily range): BP systolic 85–114; BP diastolic 46–62; PULSE 65–80; RESP 16–20; TEMP 36.8–37.1; O2SAT 93–96
--- NOTE | 2025-07-20 | ECHO_ITS ---
Patient Info Name: Laury Tillman Age: 70 years : 1955 Gender: Female Ht: 66 in Wt: 238 lbs BSA: 2.29 m2 HR: 67 bpm BP: 98 / 52 mmHg Heart Rhythm: Sinus Rhythm Technical Quality: Fair Exam Date: 07/20/2025 8:24 AM Patient Status: I Admit Date: 07/19/2025 Exam Type: CA echo doppler color flow Complete two-dimensional, color flow and Doppler transthoracic echocardiogram is performed. Staff Referring Physician: Shaheen Lucas MD Keyboarding Teacher: Olivia Bonilla Attending Provider: Elizabeth Ying DO Summary 1. Complete two-dimensional, color flow and Doppler transthoracic echocardiogram is performed. 2. Left ventricular chamber dimension is normal. 3. Left ventricular systolic function is mildly reduced, estimated at 45-50. 4. The left ventricular diastolic function is grade I diastolic dysfunction. 5. Akinesis of the apical segments of left ventricle. 6. Right ventricular chamber dimension is normal. 7. Right ventricular systolic function is normal. Left Ventricle Left ventricular chamber dimension is normal. Left ventricular systolic function is mildly reduced, estimated at 45-50. There is no increased left ventricular wall thickness. The left ventricular diastolic function is grade I diastolic dysfunction. Akinesis of the apical segments of left ventricle. Right Ventricle Right ventricular chamber dimension is normal. Right ventricular systolic function is normal. Left Atria Left atrial chamber dimension is normal. Right Atria Right atrial chamber dimension is normal. Aortic Valve The aortic valve is trileaflet. There is no aortic valve sclerosis. There is no aortic valve stenosis. There is no aortic valve regurgitation. Pulmonic Valve The pulmonic valve is normal. There is no pulmonic valve stenosis. There is no pulmonic regurgitation. Mitral Valve The mitral valve has normal leaflets. There is no mitral valve stenosis. There is mild mitral valve regurgitation. Tricuspid Valve There is no significant tricuspid valve stenosis. There is mild tricuspid valve regurgitation. Mild pulmonary hypertension, estimated pulmonary arterial systolic pressure is 36 mmHg. Pericardium/Pleural The pericardium appears normal. There is no pericardial effusion. Inferior Vena Cava Normal inferior vena cava with >50% collapse upon inspiration consistent with normal right atrial pressure, 10 mmHg. Aorta The aortic root size at the sinus of Valsalva is normal. The prox ascending aorta size is normal. Left Ventricular Outflow Tract Name Value Normal LVOT 2D LVOT Diameter 2.0 cm LVOT Doppler LVOT Peak Velocity 104 cm/s LVOT Peak Gradient 4 mmHg LVOT Mean Gradient 2 mmHg LVOT VTI 23 cm LVOT VTI/AV VTI Ratio 0.8 LVOT Stroke Volume 73 ml LVOT CO 4.9 l/min LVOT CI 2.1 l/min/m2 Pulmonic Valve Name Value Normal RVOT Doppler RVOT Peak Velocity 87 cm/s RVOT Peak Gradient 3 mmHg PV Doppler PV Peak Velocity 99 cm/s PV Peak Gradient 4 mmHg Mitral Valve Name Value Normal MV Diastolic Function MV E Peak Velocity 113 cm/s MV A Peak Velocity 140 cm/s MV E/A 0.8 MV Decel Time (PW) 282 ms MV Annular TDI MV E/e' (Septal) 20.9 MV E/e' (Lateral) 22.7 MV E/e' (Average) 21.8 Tricuspid Valve Name Value Normal TV Regurgitation Doppler TR Peak Velocity 253 cm/s TR Peak Gradient 26 mmHg Estimated PAP/RSVP RA Pressure 10 mmHg <=5 PA Systolic Pressure 36 mmHg <36 RV Systolic Pressure 36 mmHg <36 TV Annular TDI TV Lateral Diana s' Velocity 11.4 cm/s >=9.5 Aortic Valve Name Value Normal AV Doppler AV Peak Velocity 132 cm/s AV Peak Gradient 7 mmHg AV Mean Gradient 4 mmHg AV VTI 27 cm AV Area (Cont Eq VTI) 2.7 cm2 >=3.0 AV Area (Cont Eq Marcelo) 2.5 cm2 AV DI (Marcelo) 0.79 AV Regurgitation 2D LVOT Area 3.2 cm2 Ventricles Name Value Normal LV Dimensions 2D/MM IVS Diastolic Thickness (2D) 0.8 cm 0.6-1.0 LVID Diastole (2D) 4.9 cm 3.8-5.2 LVIW Diastolic Thickness (2D) 0.8 cm 0.6-0.9 LVID Systole (2D) 3.8 cm 2.2-3.5 LVOT Diameter 2.0 cm LV Mass (2D Cubed) 129.22 g 67.00-162.00 LV Mass Index (2D Cubed) 56 g/m2 43-95 Relative Wall Thickness (2D) 0.33 <=0.42 LV Fractional Shortening/Ejection Fraction 2D/MM LV Fractional Shortening (2D) 22 % 27-45 LV EF (2D Teichholz) 44 % LV Diastolic Volume (4C MOD) 103 ml LV EF (4C MOD) 43 % LV Diastolic Volume (2C MOD) 124 ml LV EF (2C MOD) 44 % LV Diastolic Volume (BP MOD) 117 ml 46-106 LV Diastolic Volume Index (BP MOD) 51 ml/m2 29-61 LV Systolic Volume (BP MOD) 65 ml 14-42 LV Systolic Volume Index (BP MOD) 28 ml/m2 8-24 LV EF (BP MOD) 45 % 54-74 LV Diastolic Length (4C) 8.2 cm LV Systolic Length (4C) 7.3 cm LV Stroke Volume (4C MOD) 44 ml Atria Name Value Normal LA Dimensions LA Volume (4C A-L) 69 ml LA Volume (BP A-L) 78 ml RA Dimensions RA Area (4C) 15.3 cm2 <=18.0 Wall Motion Scoring Report Signatures
[2025-07-20 00:14] LABS: Troponin I 3.680 ng/mL (0.000-0.034)
[2025-07-20] MEDS: ACETAMINOPHEN 325 MG TABLET 650 MG PO ×3 (00:26→21:25)
--- NOTE | 2025-07-20 00:59 | PM.IMHP ---
H&P: HPI History of Present Illness Date/Time: 07/20/25 00:59 Chief Complaint: Chest pain Narrative: 70-year-old female with a past medical history essential hypertension, GERD and pericarditis in 2022 who presented to the ER with chest pain. 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 She started developing substernal chest tightness at that time that was moderate in nature. She reported that the symptoms went away after about an hour so when the stressful situation had resolved. She reported some associated shortness of breath. She reports she felt like something was sitting on her chest. She went home and stated that she just did not feel quite as good as usual and was fatigued. She then woke up today and noticed that even with minimal exertion she was having some chest tightness. She then went to take her puppy dogs for walk and with only minimal exertion back again having 9/10 chest pain that was not getting better with rest. She reported the pain radiated back to her shoulder blades and was constant. The pain actually got worse when she arrived at the ER and she felt so weak that her significant other had to push her into the ER in a wheelchair. When she arrived at triage the patient became acutely nauseated and lightheaded and felt as if he was going to pass out. That is when the pain was the most intense across her shoulders. She reports that she feels like she has a ?wrong out wash rag?. Her pain was significant improved with sublingual nitroglycerin and IV morphine. Subsequently nitropaste was started because patient was still having some mild chest pressure. The patient refused aspirin initially because she stated that it messed with her stomach. She states that when she was on the NSAIDs for the pericarditis she had severe gastric irritation it took months for her stomach discomfort to resolve. She states that she used to be on 81 mg aspirin in it did not bother her. It was not until the time of my evaluation that the patient stated that she tolerated aspirin without difficulty in small doses. So she did not get full-dose aspirin in the ER. She was started on heparin drip when her troponin came back elevated greater than 1. She reports that she has had multiple heart caths in the past. Her embroidery assistant is Dr. Meredith at [facility]. Her most recent cardiac catheterization was in 2009 at our facility which demonstrated angiographically normal coronary arteries. She states that she is supposed to have an outpatient echocardiogram with her embroidery assistant on the in preparation for her to have a back surgery a few days after that. Review of Systems Review of Systems: 12 systems were reviewed with pertinent positives and negatives per HPI. Except as documented in the HPI, all other systems were reviewed and are negative. [facility] Past Medical History Medical History (Updated 07/20/25 @ 07:12 by Elizabeth Ying DO) Thyroid nodule Anemia Chronic GERD Hyperlipidemia Thrombocytosis Arthritis Pericarditis Bilateral carotid bruits Hypertension Gout BMI 39.0-39.9,adult Surgical History Surgical History (Updated 07/20/25 @ 07:04 by Elizabeth Ying DO) Status post cataract extraction of both eyes with insertion of intraocular lens Status post left foot surgery History of appendectomy History of tonsillectomy History of partial hysterectomy History of lumbar surgery (2011) Per Dr. Mendoza. History of cervical spinal surgery 2001 and [address] Brush and Reji. History of cardiac catheterization (05/2010) Angiographically normal coronary arteries. Family History Family History Sibling Family history of diabetes mellitus in first degree relative Family history of heart disease in male family member before age 55 Hypertension Family history of cardiovascular disease Father Family history of heart disease in male family member before age 55 Family history of cardiovascular disease Social History Social History (Updated 07/20/25 @ 07:09 by Elizabeth Ying DO) Social History: She has been since 2018. She is living with her significant other date been together since 2019. She had 3 children. One of her sons recently of an accidental carbon monoxide poisoning. Her other son survive what sounds like throat cancer (Squamous cell carcinoma?) and then had a car accident in February of 2001 T2 in now suffers from short-term memory loss due to traumatic brain injury. Her daughter is a recovering drug addict and subsequently the patient in drip raising her granddaughter. She used to smoke a pack of cigarettes per day for about 20-25 years but quit smoking in the mid . She used to drink heavily on the weekends but quit drinking alcohol in the early . She still works as a [employer]. Surrogate medical decision maker: Lauren Dickerson, granddaughter. Code status: Full code. Smoking packs per day: 1 Smoking cigarettes per day: 20.0 Years smoked: 20 Smoking pack-years: 20.00 Smoking status: Former smoker Tobacco type: cigarettes Smoking end date: 11/19/94 Alcohol intake: former Alcohol use details: Quit drinking alcohol early Substance use: never Substance use type: does not use Lack of Transportation: No Lack of Food: Never True Current Housing: I Have Housing Concerned About Future Housing: No Difficulty Paying Gas/Electric Bills: No Difficulty Paying for Meds: YES Currently Unemployed: No Education: Trade/Vocational Certificate Difficulty w/ Childcare or Family Care: No Living arrangements: alone Additional living arrangements comments: Lives alone. Additional occupation/education comments: Retired. Spiritual care concerns: No Meds Home Medications and Allergies Home Medications ?Medication ?Instructions ?Recorded ?Confirmed ?Type cholecalciferol (vitamin D3) 125 250 mcg PO DAILY 12/16/20 07/20/25 History mcg (5,000 unit) capsule cranberry extract 500 mg capsule 15,000 mg PO DAILY 12/16/20 07/20/25 History (Cranberry Concentrate) losartan 100 0.5 tablet PO DAILY 10/04/22 07/20/25 History mg-hydrochlorothiazide 25 mg tablet potassium chloride 10 mEq 20 meq PO DAILY 10/04/22 07/20/25 History tablet,extended release(part/cryst) allopurinol 100 mg tablet 200 mg PO DAILY 02/21/23 07/20/25 History nadolol 20 mg tablet 20 mg PO HS 03/12/23 07/20/25 History cetirizine 10 mg tablet (24Hour 10 mg PO DAILY PRN allergy symptoms 07/20/25 07/20/25 History Allergy) evolocumab 140 mg/mL subcutaneous 140 mg subcut ONCE 07/20/25 07/20/25 History syringe (Repatha Syringe) gabapentin 300 mg capsule 600 mg PO HS 07/20/25 07/20/25 History tirzepatide 2.5 mg/0.5 mL 2.5 mg subcut WEEKLY 07/20/25 07/20/25 History subcutaneous pen injector (Mounjaro) vitamin A 2,400 mcg capsule 2,400 mcg PO DAILY 07/20/25 07/20/25 History Allergies Allergy/AdvReac Type Severity Reaction Status Date / Time NSAIDS (Non-Steroidal Allergy Intermediate Swelling Verified 07/19/25 21:42 Anti-Inflamma Aputzso-QZW-QvD Reductase AdvReac Intermediate Myopathy Verified 07/20/25 07:03 Inhibitor Vital Signs Vital Signs - 24 hr 07/19/25 20:12 07/19/25 21:22 07/19/25 21:22 Temperature 97.6 F Pulse Rate 66 66 66 Respiratory Rate 16 20 Blood Pressure 114/75 111/68 Pulse Oximetry 98 97 Oxygen Delivery 07/19/25 21:43 07/19/25 22:00 07/19/25 23:14 Temperature Pulse Rate 75 74 Respiratory Rate 18 17 Blood Pressure 121/69 113/63 Pulse Oximetry 99 94 92 Oxygen Delivery Room Air 07/19/25 23:25 07/19/25 23:37 Temperature 98.3 F Pulse Rate 74 73 Respiratory Rate 17 18 Blood Pressure 113/63 95/53 L Pulse Oximetry 92 100 Oxygen Delivery Exam Narrative: Weight 108 kg BMI 38.4 Const: Other: No acute distress, obese, appears stated age HENMT: Other: Mucous membranes are tacky, no oral pharyngeal erythema, head is normocephalic atraumatic Eyes: Other: Bilateral lens replacements noted, no scleral icterus, no conjunctival pallor Neck: Other: Irregular thyroid, large neck circumference, no JVD Chest: Other: No reproducible tenderness palpation Resp: Other: Clear to auscultation bilaterally, no increased work of breathing Cardio: Other: Regular rate, regular rhythm, 2+ bilateral radial pedal pulses, no murmur GI: Other: Obese, soft, nontender, normoactive bowel sounds Skin: Other: Generalized pallor, non jaundice Neuro: Other: Alert orient x4, speech is clear, no facial asymmetry Extrem: Other: No clubbing, cyanosis or edema Psych: Other: Appropriate mood and affect, pleasant and cooperative, judgment and insight intact H&P: Results Labs Labs: Laboratory Tests 07/19/25 20:20 07/19/25 20:20 07/19/25 07/19/25 20:20 23:46 WBC 7.6 RBC 3.76 L Hgb 11.8 L Hct 36.5 L MCV 97.1 MCH 31.4 MCHC 32.3 RDW 13.8 Plt Count 251 MPV 10.1 Immature Gran % (Auto) 0.3 Neut % (Auto) 56.0 Lymph % (Auto) 34.8 [place] % (Auto) 5.8 Eos % (Auto) 2.6 Baso % (Auto) 0.5 Lymph # (Auto) 2.63 [place] # (Auto) 0.4 Eos # (Auto) 0.2 Baso # (Auto) 0.0 Abs Immat Gran (auto) 0.02 Absolute Neuts (auto) 4.2 Absolute Nucleated RBC 0.000 Nucleated RBC % 0.0 PT 13.1 INR 1.0 APTT 28.0 Sodium 131 L Potassium 4.1 Chloride 98 Carbon Dioxide 26 Anion Gap 7 BUN 16 Creatinine 0.90 Estim Creat Clear Calc 64 Estimated GFR > 60 Glucose 104 Calcium 9.4 Total Bilirubin 0.5 AST 39 H ALT 16 Alkaline Phosphatase 71 Troponin I 1.950 H* 3.680 H* D Total Protein 7.7 Albumin 4.7 Lipase 179 Chest x-ray: Personally reviewed interpreted demonstrated no acute cardiopulmonary process 2025-07-19 20:13:07 Measurements Intervals [place] Rate: 67 P: 15 KS: 161 QRS: -52 QRSD: 134 T: -62 QT: 475 QTc: 505 Interpretive Statements SINUS RHYTHM RIGHT BUNDLE BRANCH BLOCK LEFT ANTERIOR FASCICULAR BLOCK T WAVE ABNORMALITY IN ANTEROLAT/INF LEADS- CONSIDER ISCHEMIA BASELINE ARTIFACT- I, II, AVR, AVL ABNORMAL ECG No previous ECG available for comparison Assessment and Plan Assessment and plan (1) Non-ST elevation VT (NSTEMI): Code(s): I21.4 - Non-ST elevation (NSTEMI) myocardial infarction Status: Acute (2) Hypertension: Qualifiers: Hypertension type: primary hypertension Qualified Code(s): I10 - Essential (primary) hypertension Code(s): I10 - Essential (primary) hypertension Status: Acute (3) Hyperlipidemia: Qualifiers: Hyperlipidemia type: unspecified Qualified Code(s): E78.5 - Hyperlipidemia, unspecified Code(s): E78.5 - Hyperlipidemia, unspecified Status: Acute Plan Patient presented with chest pain and elevated troponin consistent with non STEMI. Troponin value is still trending upward but patient has had resolution of pain after sublingual nitroglycerin, nitro paste and morphine. Patient been started on heparin drip per protocol. Patient refuses full-dose aspirin therapy due to ?stomach upset? with prior NSAID use. After further discussion the patient stated that she actually did tolerate an 81 mg aspirin a day many years ago but stopped it 1 time in preparation for a back surgery in never resumed it. She is willing to start on aspirin therapy again for heart protection and this has been ordered Will check fasting lipid panel in a.m.. Will trend troponins. Will monitor in IMU on telemetry. Cardiology consult for a.m.. The patient states that she does have a history of hyperlipidemia but does not tolerate statins. She was recently started on Repatha. She states that her Repatha is due next week. Will resume home antihypertensive medications. Quality VTE Prophylaxis VTE prophylaxis: pharmacologic ordered (Heparin GGT per protocol) Hospitalist MIPS Advance Care Plan I have confirmed that the patient's Advanced Care Plan is present, code status is documented, or surrogate decision maker is listed in patient medical record.: Yes Medication Reconciliation I have utilized all available resources to obtain, update and review the patients current medications (includes all prescriptions, OTC, herbals, cannabis, and nutritional supplements).: Yes
[2025-07-20 05:03] LABS: Hematocrit 34.2 % (37.0-47.0); Hemoglobin 11.1 g/dL (12.0-15.0); Immature Granulocyte Percent A 0.1 % (0-0.5); Lymphocytes Absolute Auto 2.55 K/mm3 (0.9-3.2); Mean Corpuscular HGB Conc 32.5 g/dl (32-36); Mean Corpuscular Hemoglobin 31.4 pg (26-34); Mean Corpuscular Volume 96.9 fl (80-100); Nucleated Red Blood Cells Absolute Auto 0.000 K/mm3 (0.0-0.012); Nucleated Red Blood Cells Perc 0.0 % (0.0-0.2); Platelet Count Result 206 k/mm3 (150-375); Red Blood Count 3.53 M/mm3 (4.2-5.4); White Blood Count 8.3 K/mm3 (4.5-10.0)
[2025-07-20 05:14] LABS: INR 1.1; Prothrombin Time 14.5 Seconds (11.1-14.7)
[2025-07-20 05:15] LABS: Partial Thromboplastin Time 66.4 Seconds (22.3-36.8)
[2025-07-20 05:23] LABS: Cholesterol 145 mg/dL (0-200); HDL Direct 41 mg/dL; Triglycerides 297 mg/dL (<150)
[2025-07-20 05:35] LABS: Troponin I 3.140 ng/mL (0.000-0.034)
--- NOTE | 2025-07-20 08:12 | ECG_ITS ---
Test Date: 2025-07-20 08:20:32 Measurements Intervals [place] Rate: 63 P: 4 LA: 164 QRS: -62 QRSD: 136 T: 255 QT: 526 QTc: 542 Interpretive Statements SINUS RHYTHM RIGHT BUNDLE BRANCH BLOCK [120+ ms QRS DURATION, UPRIGHT V1, 40+ ms S IN I/aVL/V4/V5/V6] LEFT ANTERIOR FASCICULAR BLOCK [QRS AXIS <= -45, QR IN I, RS IN II] LEFT VENTRICULAR HYPERTROPHY AND ST-T CHANGE [VOLTAGE CRITERIA PLUS ST/T ABNORMALITY] T WAVE ABNORMALITY IN ANTEROLAT/INF LEADS- CONSIDER ISCHEMIA Compared to ECG 07/19/2025 20:13:07 No change Electronically Signed On 07-20-2025 11:44:00 CDT by Rashad Weathers M.D.
--- NOTE | 2025-07-20 08:27 | PM.IMPN ---
Progress Note: A&P Assessment and Plan (1) Non-ST elevation CT (NSTEMI): Code(s): I21.4 - Non-ST elevation (NSTEMI) myocardial infarction Status: Acute Assessment and Plan: Presented with chest pain and elevated troponin in ED EKG: Sinus rhythm, RBBB, rate 63, QTc 542 Troponins continued to increase, however CP resolved after sublingual nitroglycerin, nitro paste and morphine Cardio consult NPO for cardiac catheterization Aspirin Heparin infusion Statin Decrease Losartan to 25mg daily Plan for cardiac cath tomorrow (2) Hypertension: Qualifiers: Hypertension type: primary hypertension Qualified Code(s): I10 - Essential (primary) hypertension Code(s): I10 - Essential (primary) hypertension Status: Acute Assessment and Plan: Patient's blood pressure was reviewed on 07/20 Blood pressure remains well controlled. Will continue current medications - although decrease losartan to 25mg 114/60 (3) Hyperlipidemia: Qualifiers: Hyperlipidemia type: unspecified Qualified Code(s): E78.5 - Hyperlipidemia, unspecified Code(s): E78.5 - Hyperlipidemia, unspecified Status: Acute Assessment and Plan: Allergy to [id number] reductase Inhibitor Currently taking Evolocumab (Raptha) as she cannot take statins Subjective Date/time seen: 07/20/25 08:27 Interval history: 70-year-old female with a past medical history essential hypertension, GERD and pericarditis in 2022 who presented to the ER with chest pain. 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 She started developing substernal chest tightness at that time that was moderate in nature. She reported that the symptoms went away after about an hour so when the stressful situation had resolved. 07/20/2025 Patient sitting in bed at time of exam. Denies any chest pain, SOB, n/v, or abdominal pain at this time. Seen by cardiology for NSTEMI as troponin was uptrending in ED. Plan for cardiac catheterization tomorrow. Continue aspirin, heparin infusion, statins. Pt otherwise stable at this point. Review of Systems Review of Systems: 12 systems were reviewed with pertinent positives and negatives per HPI. Except as documented in the HPI, all other systems were reviewed and are negative. Exam Narrative: Weight 108 kg BMI 38.4 Const: Other: No acute distress, obese, appears stated age HENMT: Other: Mucous membranes are tacky, no oral pharyngeal erythema, head is normocephalic atraumatic Eyes: Other: Bilateral lens replacements noted, no scleral icterus, no conjunctival pallor Neck: Other: Irregular thyroid, large neck circumference, no JVD Chest: Other: No reproducible tenderness palpation Resp: Other: Clear to auscultation bilaterally, no increased work of breathing Cardio: Other: Regular rate, regular rhythm, 2+ bilateral radial pedal pulses, no murmur GI: Other: Obese, soft, nontender, normoactive bowel sounds Skin: Other: Generalized pallor, non jaundice Neuro: Other: Alert orient x4, speech is clear, no facial asymmetry Extrem: Other: No clubbing, cyanosis or edema Psych: Other: Appropriate mood and affect, pleasant and cooperative, judgment and insight intact Objective Data Vital Signs Vital Signs: Vital Signs - 24 hr 07/19/25 20:12 07/19/25 21:22 07/19/25 21:22 Temperature 97.6 F Pulse Rate 66 66 66 Respiratory Rate 16 20 Blood Pressure 114/75 111/68 Pulse Oximetry 98 97 Oxygen Delivery 07/19/25 21:43 07/19/25 22:00 07/19/25 23:14 Temperature Pulse Rate 75 74 Respiratory Rate 18 17 Blood Pressure 121/69 113/63 Pulse Oximetry 99 94 92 Oxygen Delivery Room Air 07/19/25 23:25 07/19/25 23:37 07/20/25 00:00 Temperature 98.3 F Pulse Rate 74 73 72 Respiratory Rate 17 18 Blood Pressure 113/63 95/53 L Pulse Oximetry 92 100 Oxygen Delivery 07/20/25 02:00 07/20/25 04:00 07/20/25 04:00 Temperature 98.3 F Pulse Rate 69 67 67 Respiratory Rate 16 Blood Pressure 98/52 L Pulse Oximetry 95 Oxygen Delivery Intake/Output Intake/Output: Intake & Output 07/17/25 07/18/25 07/19/25 07/20/25 23:59 23:59 23:59 23:59 Intake Total 445.7 Output Total 1100 Balance -654.3 Meds/Results Medications: Active Medications Generic Name Dose Route Start Last Admin Trade Name Freq PRN Reason Stop Dose Admin Acetaminophen 650 mg 07/19/25 22:21 07/20/25 00:26 Acetaminophen 325 Mg Tablet PO 650 mg Q4H PRN Administration Mild Pain (1-3) or Fever Allopurinol 200 mg 07/20/25 08:00 Allopurinol 100 Mg Tablet PO DAILY@0800 [facility] Aspirin 81 mg 07/20/25 08:00 Aspirin 81 Mg Chewable Tablet PO DAILY@0800 [facility] Aspirin 81 mg 07/20/25 09:00 Aspirin 81 Mg Enteric Tablet PO QAM [facility] Gabapentin 600 mg 07/20/25 21:00 Gabapentin 300 Mg Capsule PO [facility] Heparin Sodium (Porcine) 4,000 units 07/19/25 22:18 Heparin Sodium 5,000 Units/Ml Vial IV PUSH PRN PRN aPTT less than 55 seconds Heparin Sodium (Porcine) 3,000 units 07/19/25 22:18 07/20/25 05:27 Heparin Sodium 5,000 Units/Ml Vial IV PUSH 3,000 units PRN PRN Administration aPTT 55 - 70 seconds Hydrochlorothiazide 12.5 mg 07/20/25 09:00 Hydrochlorothiazide 12.5 Mg [facility]arin Sodium/Dextrose 25,000 units in 250 mls @ 12 mls/hr 07/19/25 22:20 07/20/25 05:28 Heparin Sodium/D5w 100 Units/Ml IV CONT 1,200 units/hr .[id number] [facility] 12 mls/hr Protocol Titration 1,200 UNITS/HR Loratadine 10 mg 07/20/25 05:03 Loratadine 10 Mg Tablet PO DAILY PRN allergy symptoms Losartan Potassium 50 mg 07/20/25 09:00 Losartan Potassium 50 Mg Tablet PO QAM [facility] Morphine Sulfate 2 mg 07/19/25 22:21 Morphine Sulfate (*Crx) 2 Mg/Ml Inj IV PUSH Q2H PRN Pain Rated 7-10 Nadolol 20 mg 07/20/25 21:00 Nadolol 20 Mg Tablet PO HS [facility] Nitroglycerin 1 inch 07/20/25 00:00 07/20/25 05:22 Nitroglycerin Ointment 1 Inch Dose TRANSDERM Not Given Q6HR [facility] Nitroglycerin 0.4 mg 07/19/25 22:21 Nitroglycerin Sl 0.4 Mg Tablet SUBLINGUAL Q5MIN PRN Chest Pain Ondansetron HCl 4 mg 07/19/25 22:21 Ondansetron Inj 4 Mg/2 Ml Vial IV PUSH Q4H PRN Nausea Perflutren Lipid Microsphere 0 ml 07/20/25 07:03 Perflutren Lipid Microspheres 1.5 Ml Vial Diluted To 10 Ml Total Volume IV PUSH 07/23/25 07:04 ONCE PRN adequate visualization Protocol Potassium Chloride 20 meq 07/20/25 09:00 Potassium Chloride 20 Meq Er Tablet PO DAILY ANI Vitamin D 250 mcg 07/20/25 09:00 Cholecalciferol (Vitamin D3) 125 Mcg (5,000 Units) Tablet PO DAILY [facility] Labs Labs: Laboratory Results - last 24 hr 07/19/25 07/19/25 07/20/25 20:20 23:46 04:40 WBC 7.6 8.3 RBC 3.76 L 3.53 L Hgb 11.8 L 11.1 L Hct 36.5 L 34.2 L MCV 97.1 96.9 MCH 31.4 31.4 MCHC 32.3 32.5 RDW 13.8 13.8 Plt Count 251 206 MPV 10.1 10.3 Immature Gran % (Auto) 0.3 0.1 Neut % (Auto) 56.0 60.0 Lymph % (Auto) 34.8 30.6 [place] % (Auto) 5.8 6.4 Eos % (Auto) 2.6 2.4 Baso % (Auto) 0.5 0.5 Lymph # (Auto) 2.63 2.55 [place] # (Auto) 0.4 0.5 Eos # (Auto) 0.2 0.2 Baso # (Auto) 0.0 0.0 Abs Immat Gran (auto) 0.02 0.01 Absolute Neuts (auto) 4.2 5.0 Absolute Nucleated RBC 0.000 0.000 Nucleated RBC % 0.0 0.0 PT 13.1 14.5 INR 1.0 1.1 APTT 28.0 66.4 H Sodium 131 L Potassium 4.1 Chloride 98 Carbon Dioxide 26 Anion Gap 7 BUN 16 Creatinine 0.90 Estim Creat Clear Calc 64 Estimated GFR > 60 Glucose 104 Calcium 9.4 Total Bilirubin 0.5 AST 39 H ALT 16 Alkaline Phosphatase 71 Troponin I 1.950 H* 3.680 H* D 3.140 H* Total Protein 7.7 Albumin 4.7 Triglycerides 297 H Cholesterol 145 LDL Cholesterol Direct 59 HDL Direct 41 Lipase 179 Quality VTE Prophylaxis VTE prophylaxis: pharmacologic ordered (Heparin GGT per protocol)
[2025-07-20 08:41] LABS: Alanine Aminotransferase 15 U/L (6-35); Albumin Level 3.9 g/dL (3.5-5.1); Alkaline Phosphatase 72 U/L (38-126); Anion Gap 8 mmol/L (4-12); Aspartate Amino Transferase 45 U/L (14-36); Bilirubin,Total 0.6 mg/dL (0.2-1.3); Blood Urea Nitrogen 14 mg/dL (7-17); Calcium 9.3 mg/dL (8.4-10.2); Carbon Dioxide 26 mmol/L (22-30); Chloride 99 mmol/L (98-107); Estimated CRCL calculation 77 ml/min; Estimated Glomerular Filt Rate > 60; Glucose 96 mg/dL (65-110); Potassium 3.7 mmol/L (3.4-5.0); Sodium 133 mmol/L (137-145); Total Protein 6.5 g/dL (6.3-8.2)
[2025-07-20] MEDS: ASPIRIN 81 MG ENTERIC TABLET PO (09:14)
[2025-07-20] MEDS: CHOLECALCIFEROL (VITAMIN D3) 125 MCG (5,000 UNITS) TABLET 250 MCG PO (09:15)
--- NOTE | 2025-07-20 09:57 | PM.CNCAR ---
Assessment and Plan Assessment and plan (1) Non-ST elevation [place] (NSTEMI): Code(s): I21.4 - Non-ST elevation (NSTEMI) myocardial infarction Status: Acute Plan NSTEMI possible secondary to acute chronic syndrome versus stress induced myopathy New onset cardiomyopathy with apical akinesis possible it to LAD occlusion versus stress-induced myopathy Mixed dyslipidemia Hypertension Plan NPO for cardiac catheterization Aspirin Heparin infusion Statin Decrease dose of losartan to 25 mg daily and hold for blood pressure less than 100 systolic Nitropaste 1 in and hold for systolic blood pressure less than 100 History of Present Illness History of Present Illness Consult date/time: 07/20/25 09:57 Reason For Visit: Chest pain, NSTEMI Narrative: Acute chest pain that started on Sunday was intermittent retrosternal pressure like radiating to the shoulder left side and back. Yesterday the pain was severe persistent associated with nausea sweating dizziness. This morning her chest pain has improved. Patient had family stressful event on Sunday. [facility] Past Medical History Medical History (Updated 07/20/25 @ 07:12 by Elizabeth Ying DO) Thyroid nodule Anemia Chronic GERD Hyperlipidemia Thrombocytosis Arthritis Pericarditis Bilateral carotid bruits Hypertension Gout BMI 39.0-39.9,adult Surgical History Surgical History (Updated 07/20/25 @ 07:04 by Elizabeth Ying DO) Status post cataract extraction of both eyes with insertion of intraocular lens Status post left foot surgery History of appendectomy History of tonsillectomy History of partial hysterectomy History of lumbar surgery (2011) Per Dr. Mendoza. History of cervical spinal surgery 2001 and [address] Brush and Reij. History of cardiac catheterization (05/2010) Angiographically normal coronary arteries. Family History Family History Sibling Family history of diabetes mellitus in first degree relative Family history of heart disease in male family member before age 55 Hypertension Family history of cardiovascular disease Father Family history of heart disease in male family member before age 55 Family history of cardiovascular disease Social History Social History (Updated 07/20/25 @ 07:09 by Elizabeth Ying DO) Social History: She has been since 2018. She is living with her significant other date been together since 2019. She had 3 children. One of her sons recently of an accidental carbon monoxide poisoning. Her other son survive what sounds like throat cancer (Squamous cell carcinoma?) and then had a car accident in February of 2001 T2 in now suffers from short-term memory loss due to traumatic brain injury. Her daughter is a recovering drug addict and subsequently the patient in drip raising her granddaughter. She used to smoke a pack of cigarettes per day for about 20-25 years but quit smoking in the mid . She used to drink heavily on the weekends but quit drinking alcohol in the early . She still works as a [employer]. Surrogate medical decision maker: Lauren Dickerson, granddaughter. Code status: Full code. Smoking packs per day: 1 Smoking cigarettes per day: 20.0 Years smoked: 20 Smoking pack-years: 20.00 Smoking status: Former smoker Tobacco type: cigarettes Smoking end date: 11/19/94 Alcohol intake: former Alcohol use details: Quit drinking alcohol early Substance use: never Substance use type: does not use Lack of Transportation: No Lack of Food: Never True Current Housing: I Have Housing Concerned About Future Housing: No Difficulty Paying Gas/Electric Bills: No Difficulty Paying for Meds: YES Currently Unemployed: No Education: Trade/Vocational Certificate Difficulty w/ Childcare or Family Care: No Living arrangements: alone Additional living arrangements comments: Lives alone. Additional occupation/education comments: Retired. Spiritual care concerns: No Meds Home Medications and Allergies Home Medications ?Medication ?Instructions ?Recorded ?Confirmed ?Type cholecalciferol (vitamin D3) 125 250 mcg PO DAILY 12/16/20 07/20/25 History mcg (5,000 unit) capsule cranberry extract 500 mg capsule 15,000 mg PO DAILY 12/16/20 07/20/25 History (Cranberry Concentrate) losartan 100 0.5 tablet PO DAILY 10/04/22 07/20/25 History mg-hydrochlorothiazide 25 mg tablet potassium chloride 10 mEq 20 meq PO DAILY 10/04/22 07/20/25 History tablet,extended release(part/cryst) allopurinol 100 mg tablet 200 mg PO DAILY 02/21/23 07/20/25 History nadolol 20 mg tablet 20 mg PO HS 03/12/23 07/20/25 History cetirizine 10 mg tablet (24Hour 10 mg PO DAILY PRN allergy symptoms 07/20/25 07/20/25 History Allergy) evolocumab 140 mg/mL subcutaneous 140 mg subcut ONCE 07/20/25 07/20/25 History syringe (Repatha Syringe) gabapentin 300 mg capsule 600 mg PO HS 07/20/25 07/20/25 History tirzepatide 2.5 mg/0.5 mL 2.5 mg subcut WEEKLY 07/20/25 07/20/25 History subcutaneous pen injector (Terryro) vitamin A 2,400 mcg capsule 2,400 mcg PO DAILY 07/20/25 07/20/25 History Allergies Allergy/AdvReac Type Severity Reaction Status Date / Time NSAIDS (Non-Steroidal Allergy Intermediate Swelling Verified 07/19/25 21:42 Anti-Inflamma [id number] Reductase AdvReac Intermediate Myopathy Verified 07/20/25 07:03 Inhibitor Vital Signs Vital Signs - 24 hr 07/19/25 20:12 07/19/25 21:22 07/19/25 21:22 Temperature 36.4 C Pulse Rate 66 66 66 Respiratory Rate 16 20 Blood Pressure 114/75 111/68 Pulse Oximetry 98 97 Oxygen Delivery 07/19/25 21:43 07/19/25 22:00 07/19/25 23:14 Temperature Pulse Rate 75 74 Respiratory Rate 18 17 Blood Pressure 121/69 113/63 Pulse Oximetry 99 94 92 Oxygen Delivery Room Air 07/19/25 23:25 07/19/25 23:37 07/20/25 00:00 Temperature 36.8 C Pulse Rate 74 73 72 Respiratory Rate 17 18 Blood Pressure 113/63 95/53 L Pulse Oximetry 92 100 Oxygen Delivery 07/20/25 02:00 07/20/25 04:00 07/20/25 04:00 Temperature 36.8 C Pulse Rate 69 67 67 Respiratory Rate 16 Blood Pressure 98/52 L Pulse Oximetry 95 Oxygen Delivery 07/20/25 08:00 07/20/25 08:20 Temperature 36.8 C Pulse Rate 66 Respiratory Rate 18 Blood Pressure 85/46 L 96/60 L Pulse Oximetry 96 Oxygen Delivery Exam Const: General: comfortable and no acute distress Other: Able to lie flat HENMT: Face/Nose/Sinus: Normal nares present and no epistaxis Mouth: Yes moist mucous membranes Eyes: Sclera: sclerae normal Pupils: Equal, round and reactive pupils present Neck: Neck: supple and no JVD Carotids: no bruits Resp: Auscultation: clear to auscultation bilaterally and lung sounds not diminished Other: No chest wall tenderness Cardio: Rate: regular rate Rhythm: regular rhythm Heart sounds: no gallops, no murmurs and no rubs GI: GI Palp: Yes Soft to palpation and No Tenderness to palpation present (GI) Auscultation: normal bowel sounds Skin: General skin exam: normal color, rashes and/or lesions noted and no erythema Other: Warm Neuro: Cranial nerves: Yes Equal, round and reactive pupils present Speech: normal speech Other: No obvious focal deficit or facial asymmetry Extrem: General: no edema Other: Normal capillary refills Intact distal pulses. Results Labs and Meds 07/20/25 04:40 07/20/25 04:37 Lab results: Cardiac Enzymes 07/19/25 07/19/25 07/20/25 Range/Units 20:20 23:46 04:37 AST 39 H 45 H (14-36) U/L Troponin I 1.950 H* 3.680 H* D (0.000-0.034) ng/mL 07/20/25 Range/Units 04:40 AST (14-36) U/L Troponin I 3.140 H* (0.000-0.034) ng/mL Coagulation 07/19/25 07/20/25 Range/Units 20:20 04:40 PT 13.1 14.5 (11.1-14.7) Seconds APTT 28.0 66.4 H (22.3-36.8) Seconds Lipids 07/20/25 Range/Units 04:40 Triglycerides 297 H (<150) mg/dL Cholesterol 145 (0-200) mg/dL CBC 07/19/25 07/20/25 Range/Units 20:20 04:40 WBC 7.6 8.3 (4.5-10.0) K/mm3 RBC 3.76 L 3.53 L (4.2-5.4) M/mm3 Hgb 11.8 L 11.1 L (12.0-15.0) g/dL Hct 36.5 L 34.2 L (37.0-47.0) % Plt Count 251 206 (150-375) k/mm3 Lymph # (Auto) 2.63 2.55 (0.9-3.2) K/mm3 [place] # (Auto) 0.4 0.5 (0.1-0.6) K/mm3 Eos # (Auto) 0.2 0.2 (0-0.3) K/mm3 Baso # (Auto) 0.0 0.0 (0.0-0.1) K/mm3 Comprehensive Metabolic Panel 07/19/25 07/20/25 Range/Units 20:20 04:37 Sodium 131 L 133 L (137-145) mmol/L Potassium 4.1 3.7 (3.4-5.0) mmol/L Chloride 98 99 (98-107) mmol/L Carbon Dioxide 26 26 (22-30) mmol/L BUN 16 14 (7-17) mg/dL Creatinine 0.90 0.73 (0.7-1.0) mg/dL Glucose 104 96 (65-110) mg/dL Calcium 9.4 9.3 (8.4-10.2) mg/dL AST 39 H 45 H (14-36) U/L ALT 16 15 (6-35) U/L Alkaline Phosphatase 71 72 (38-126) U/L Total Protein 7.7 6.5 (6.3-8.2) g/dL Albumin 4.7 3.9 (3.5-5.1) g/dL Intake and Output 07/19/25 07/20/25 07/20/25 23:59 07:59 15:59 Intake Total 445.7 Output Total 1100 Balance -654.3 Intake: IV 65.7 Heparin Sod/D5w 100 Units/ml 25 65.7 ,000 units In 250 ml @ 1,200 UNITS/HR 12 mls/hr IV CONT . [id number] [facility] Rx#:[id number] Oral 380 Output: Urine 1100 Patient Weight 07/20/25 23:59 Weight 108 kg Imaging and Cardiology EKG results: other (Personally interpreted the EKG, sinus rhythm diffuse T-wave inversion)
[2025-07-20] MEDS: NITROGLYCERIN OINTMENT 1 INCH DOSE TRANSDERM ×2 (11:33→18:01)
[2025-07-20 12:12] LABS: Partial Thromboplastin Time 133.7 Seconds (22.3-36.8)
[2025-07-20] MEDS: LOSARTAN POTASSIUM 25 MG TABLET PO (12:46)
--- NOTE | 2025-07-20 17:08 | PHAR ---
Home medication identified Potassium Cl ER 20mEq tablet and returned to IMU nursing unit
[2025-07-20] MEDS: POTASSIUM CHLORIDE 20 MEQ ER TABLET PO (18:27)
[2025-07-20 20:30] LABS: Partial Thromboplastin Time 62.3 Seconds (22.3-36.8)
[2025-07-20] MEDS: GABAPENTIN 300 MG CAPSULE 600 MG PO (20:33)
[2025-07-20] MEDS: HEPARIN SOD/D5W 100 UNITS/ML 25,000 UNITS/250 ML BAG 12 UNITS IV CONT (21:17)
[2025-07-21] VITALS (20 sets, daily range): BP systolic 80–113; BP diastolic 42–75; PULSE 60–76; RESP 13–20; TEMP 36.5–36.8; O2SAT 94–98
[2025-07-21 04:08] LABS: Hematocrit 34.8 % (37.0-47.0); Hemoglobin 11.2 g/dL (12.0-15.0); Immature Granulocyte Percent A 0.3 % (0-0.5); Lymphocytes Absolute Auto 2.63 K/mm3 (0.9-3.2); Mean Corpuscular HGB Conc 32.2 g/dl (32-36); Mean Corpuscular Hemoglobin 31.3 pg (26-34); Mean Corpuscular Volume 97.2 fl (80-100); Nucleated Red Blood Cells Absolute Auto 0.000 K/mm3 (0.0-0.012); Nucleated Red Blood Cells Perc 0.0 % (0.0-0.2); Platelet Count Result 214 k/mm3 (150-375); Red Blood Count 3.58 M/mm3 (4.2-5.4); White Blood Count 6.4 K/mm3 (4.5-10.0)
[2025-07-21 04:23] LABS: Partial Thromboplastin Time 99.4 Seconds (22.3-36.8)
[2025-07-21 04:32] LABS: Alanine Aminotransferase 13 U/L (6-35); Albumin Level 3.9 g/dL (3.5-5.1); Alkaline Phosphatase 61 U/L (38-126); Anion Gap 7 mmol/L (4-12); Aspartate Amino Transferase 36 U/L (14-36); Bilirubin,Total 0.5 mg/dL (0.2-1.3); Blood Urea Nitrogen 15 mg/dL (7-17); Calcium 9.4 mg/dL (8.4-10.2); Carbon Dioxide 24 mmol/L (22-30); Chloride 103 mmol/L (98-107); Estimated CRCL calculation 67 ml/min; Estimated Glomerular Filt Rate > 60; Glucose 96 mg/dL (65-110); Potassium 3.7 mmol/L (3.4-5.0); Sodium 134 mmol/L (137-145); Total Protein 6.4 g/dL (6.3-8.2)
--- NOTE | 2025-07-21 09:14 | WPDHPUPDATE1 ---
History and Physical Update Update Date/Time: 07/21/25 09:14 History and Physical has been reviewed, including an updated exam of the patient. There are NO changes in the patient's condition. Risks, benefits, and alternatives have been discussed and questions answered. Patient agrees to proceed with procedure.
--- NOTE | 2025-07-21 09:15 | P.SEDATION_ITS ---
Moderate Sedation Note-Pt Data Patient Data Allergies Allergy/AdvReac Type Severity Reaction Status Date / Time NSAIDS (Non-Steroidal Allergy Intermediate Swelling Verified 07/19/25 21:42 Anti-Inflamma Fqhddej-BSD-FhC Reductase AdvReac Intermediate Myopathy Verified 07/20/25 07:03 Inhibitor Home Medications ?Medication ?Instructions ?Recorded ?Confirmed ?Type cholecalciferol (vitamin D3) 125 250 mcg PO DAILY 11/2007/20/25 History mcg (5,000 unit) capsule cranberry extract 500 mg capsule 15,000 mg PO DAILY 07/20/25 History (Cranberry Concentrate) losartan 100 0.5 tablet PO DAILY 10/04/22 07/20/25 History mg-hydrochlorothiazide 25 mg tablet potassium chloride 10 mEq 20 meq PO DAILY 10/04/2212/13 History tablet,extended release(part/cryst) allopurinol 100 mg tablet 200 mg PO DAILY 02/21/2312/13 History nadolol 20 mg tablet 20 mg PO HS 03/12/23 5 History cetirizine 10 mg tablet (24Hour 10 mg PO DAILY PRN all ergy symptoms 07/20/25 07/20/25 History Allergy) evolocumab 140 mg/mL subcutaneous 140 mg subcut ONCE 0 07/20/25 07/20/25 History syringe (Repatha Syringe) gabapentin 300 mg capsule 600 mg PO HS 07/20/25 History tirzepatide 2.5 mg/0.5 mL 2.5 mg subcut WEEKLY 5 07/20/25 History subcutaneous pen injector (Kanu) vitamin A 2,400 mcg capsule 2,400 mcg PO DAILY 5 07/20/25 History Current Medications: Active Medications Acetaminophen (Acetaminophen 325 Mg Tablet) 650 mg PO Q4H PRN PRN Reason: Mild Pain (1-3) or Fever Last Admin: 07/20/25 21:25 Dose: 650 mg Allopurinol (Allopurinol 100 Mg Tablet) 200 mg PO DAILY@0800 [facility] Last Admin: 07/20/25 09:15 Dose: 200 mg Aspirin (Aspirin 81 Mg Chewable Tablet) 81 mg PO DAILY@0800 [facility] Last Admin: 07/20/25 09:13 Dose: Not Given Aspirin (Aspirin 81 Mg Enteric Tablet) 81 mg PO QAM ANI Last Admin: 07/20/25 09:14 Dose: 81 mg Gabapentin (Gabapentin 300 Mg Capsule) 600 mg PO [facility] Last Admin: 07/20/25 20:33 Dose: 600 mg Heparin Sodium (Porcine) (Heparin Sodium 5,000 Units/Ml Vial) 4,000 units IV PUSH PRN PRN PRN Reason: aPTT less than 55 seconds Heparin Sodium (Porcine) (Heparin Sodium 5,000 Units/Ml Vial) 3,000 units IV PUSH PRN PRN PRN Reason: aPTT 55 - 70 seconds Last Admin: 07/20/25 21:08 Dose: 3,000 units Heparin Sodium/Dextrose (Heparin Sodium/D5w 100 Units/Ml) 25,000 units in 250 mls @ 12 mls/hr IV CONT .[id number] SCH; Protocol Last Titration: 07/21/25 04:31 Dose: 1,200 units/hr, 12 mls/hr Loratadine (Loratadine 10 Mg Tablet) 10 mg PO DAILY PRN PRN Reason: allergy symptoms Losartan Potassium (Losartan Potassium 25 Mg Tablet) [address] [facility] Last Admin: 07/20/25 12:46 Dose: 25 mg Morphine Sulfate (Morphine Sulfate (*Crx) 2 Mg/Ml Inj) 2 mg IV PUSH Q2H PRN PRN Reason: Pain Rated 7-10 Nadolol (Nadolol 20 Mg Tablet) 20 mg PO [facility] Last Admin: 07/20/25 20:33 Dose: 20 mg Nitroglycerin (Nitroglycerin Ointment 1 Inch Dose) 1 inch TRANSDERM Q6HR [facility] Last Admin: 07/21/25 05:47 Dose: Not Given Nitroglycerin (Nitroglycerin Sl 0.4 Mg Tablet) 0.4 mg SUBLINGUAL Q5MIN PRN PRN Reason: Chest Pain Ondansetron HCl (Ondansetron Inj 4 Mg/2 Ml Vial) 4 mg IV PUSH Q4H PRN PRN Reason: Nausea Perflutren Lipid Microsphere (Perflutren Lipid Microspheres 1.5 Ml Vial Diluted To 10 Ml Total Volume) 0 ml IV PUSH ONCE PRN; Protocol PRN Reason: adequate visualization Stop: 07/23/25 07:04 Potassium Chloride (Potassium Chloride 20 Meq Er Tablet *Use Home Supply*) 20 meq PO DAILY [facility] Vitamin D (Cholecalciferol (Vitamin D3) 125 Mcg (5,000 Units) Tablet) 250 mcg PO DAILY ANI Last Admin: 07/20/25 09:15 Dose: 250 mcg Sedation/Anesthesia: No previous sedation/anesthesia problems (including family history). [facility] Past Medical History Medical History (Updated 07/20/25 @ 07:12 by Elizabeth Ying DO) Thyroid nodule Anemia Chronic GERD Hyperlipidemia Thrombocytosis Arthritis Pericarditis Bilateral carotid bruits Hypertension Gout BMI 39.0-39.9,adult Surgical History Surgical History (Updated 07/20/25 @ 07:04 by Elizabeth Ying DO) Status post cataract extraction of both eyes with insertion of intraocular lens Status post left foot surgery History of appendectomy History of tonsillectomy History of partial hysterectomy History of lumbar surgery (2011) Per Dr. Mendoza. History of cervical spinal surgery 2001 and [address] Brush and Reji. History of cardiac catheterization (05/2010) Angiographically normal coronary arteries. Family History Family History Sibling Family history of diabetes mellitus in first degree relative Family history of heart disease in male family member before age 55 Hypertension Family history of cardiovascular disease Father Family history of heart disease in male family member before age 55 Family history of cardiovascular disease Social History Social History (Updated 07/20/25 @ 07:09 by Elizabeth Ying DO) Social History: She has been since 2018. She is living with her significant other date been together since 2019. She had 3 children. One of her sons recently of an accidental carbon monoxide poisoning. Her other son survive what sounds like throat cancer (Squamous cell carcinoma?) and then had a car accident in February of 2001 T2 in now suffers from short-term memory loss due to traumatic brain injury. Her daughter is a recovering drug addict and subsequently the patient in drip raising her granddaughter. She used to smoke a pack of cigarettes per day for about 20-25 years but quit smoking in the mid 1990s. She used to drink heavily on the weekends but quit drinking alcohol in the early . She still works as a [employer]. Surrogate medical decision maker: Lauren Dickerson, granddaughter. Code status: Full code. Smoking packs per day: 1 Smoking cigarettes per day: 20.0 Years smoked: 20 Smoking pack-years: 20.00 Smoking status: Former smoker Tobacco type: cigarettes Smoking end date: 11/19/94 Alcohol intake: former Alcohol use details: Quit drinking alcohol early Substance use: never Substance use type: does not use Lack of Transportation: No Lack of Food: Never True Current Housing: I Have Housing Concerned About Future Housing: No Difficulty Paying Gas/Electric Bills: No Difficulty Paying for Meds: YES Currently Unemployed: No Education: Trade/Vocational Certificate Difficulty w/ Childcare or Family Care: No Living arrangements: alone Additional living arrangements comments: Lives alone. Additional occupation/education comments: Retired. Spiritual care concerns: No Mod Sed Physical Exam Physical Exam Pre Procedural Exam: Normal: Lungs, Heart Size, Heart Rate and Heart Rhythm Hours since solid foods: 12 Hours since liquid intake: 12 Mallampati Classification: class II Internal Medicine - PN: Obj Da Vital Signs Vital Signs: Vital Signs - 24 hr 07/20/25 10:00 07/20/25 11:29 07/20/25 12:40 Temperature 36.9 C Pulse Rate 74 65 Respiratory Rate 20 Blood Pressure 105/51 L 114/60 Pulse Oximetry 95 07/20/25 14:00 07/20/25 16:00 07/20/25 16:00 Temperature 37.1 C Pulse Rate 78 77 77 Respiratory Rate 18 Blood Pressure 101/58 L Pulse Oximetry 96 07/20/25 19:34 07/20/25 20:00 07/20/25 20:33 Temperature 37.0 C Pulse Rate 80 70 75 Respiratory Rate 19 Blood Pressure 105/52 L Pulse Oximetry 93 07/20/25 22:00 07/20/25 23:31 07/21/25 00:00 Temperature 37.1 C Pulse Rate 69 66 66 Respiratory Rate 17 Blood Pressure 90/62 L Pulse Oximetry 94 07/21/25 02:00 07/21/25 04:00 07/21/25 04:00 Temperature 36.6 C Pulse Rate 66 60 65 Respiratory Rate 15 Blood Pressure 90/43 L Pulse Oximetry 94 07/21/25 06:00 07/21/25 07:34 Temperature 36.5 C Pulse Rate 61 67 Respiratory Rate 16 Blood Pressure 80/49 L Pulse Oximetry 94 Intake/Output Intake/Output: Intake & Output 07/18/25 07/19/25 07/20/25 07/21/25 23:59 23:59 23:59 23:59 Intake Total 2188.4 86.8 Output Total 2400 Balance -211.6 86.8 Meds/Results Medications: Active Medications Generic Name Dose Route Start Last Admin Trade Name Aniyah PRN Reason Stop Dose Admin Acetaminophen 650 mg 07/19/25 22:21 07/20/25 21:25 Acetaminophen 325 Mg Tablet PO 650 mg Q4H PRN Administration Mild Pain (1-3) or Fever Allopurinol 200 mg 07/20/25 08:00 07/20/25 09:15 Allopurinol 100 Mg Tablet PO 200 mg DAILY@0800 [facility] Administration Aspirin 81 mg 07/20/25 08:00 07/20/25 09:13 Aspirin 81 Mg Chewable Tablet PO Not Given DAILY@0800 [facility] Aspirin 81 mg 07/20/25 09:00 07/20/25 09:14 Aspirin 81 Mg Enteric Tablet PO 81 mg QAM [facility] Administration Gabapentin 600 mg 07/20/25 21:00 07/20/25 20:33 Gabapentin 300 Mg Capsule PO 600 mg HS [facility] Administration Heparin Sodium (Porcine) 4,000 units 07/19/25 22:18 Heparin Sodium 5,000 Units/Ml Vial IV PUSH PRN PRN aPTT less than 55 seconds Heparin Sodium (Porcine) 3,000 units 07/19/25 22:18 07/20/25 21:08 Heparin Sodium 5,000 Units/Ml Vial IV PUSH 3,000 units PRN PRN Administration aPTT 55 - 70 seconds Heparin Sodium/Dextrose 25,000 units in 250 mls @ 12 mls/hr 07/19/25 22:20 07/21/25 04:31 Heparin Sodium/D5w 100 Units/Ml IV CONT 1,200 units/hr .[id number] [facility] 12 mls/hr Protocol Titration 1,200 UNITS/HR Loratadine 10 mg 07/20/25 05:03 Loratadine 10 Mg Tablet PO DAILY PRN allergy symptoms Losartan Potassium 25 mg 07/20/25 09:10 07/20/25 12:46 Losartan Potassium 25 Mg Tablet PO 25 mg QAM [facility] Administration Morphine Sulfate 2 mg 07/19/25 22:21 Morphine Sulfate (*Crx) 2 Mg/Ml Inj IV PUSH Q2H PRN Pain Rated 7-10 Nadolol 20 mg 07/20/25 21:00 07/20/25 20:33 Nadolol 20 Mg Tablet PO 20 mg HS ANI Administration Nitroglycerin 1 inch 07/20/25 00:00 07/21/25 05:47 Nitroglycerin Ointment 1 Inch Dose TRANSDERM Not Given Q6HR [facility] Nitroglycerin 0.4 mg 07/19/25 22:21 Nitroglycerin Sl 0.4 Mg Tablet SUBLINGUAL Q5MIN PRN Chest Pain Ondansetron HCl 4 mg 07/19/25 22:21 Ondansetron Inj 4 Mg/2 Ml Vial IV PUSH Q4H PRN Nausea Perflutren Lipid Microsphere 0 ml 07/20/25 07:03 Perflutren Lipid Microspheres 1.5 Ml Vial Diluted To 10 Ml Total Volume IV PUSH 07/23/25 07:04 ONCE PRN adequate visualization Protocol Potassium Chloride 20 meq 07/21/25 09:00 Potassium Chloride 20 Meq Er Tablet *Use Home Supply* PO DAILY [facility] Vitamin D 250 mcg 07/20/25 09:00 07/20/25 09:15 Cholecalciferol (Vitamin D3) 125 Mcg (5,000 Units) Tablet PO 250 mcg DAILY ANI Administration Radiology Results: ITS Impressions Chest X-Ray 07/20/25 12:43 IMPRESSION: 1. Likely congestive heart failure with mild cardiomegaly and mild pulmonary edema in the lower lungs. Labs 07/21/25 03:27 07/21/25 03:27 Labs: Laboratory Results - last 24 hr 07/20/25 07/20/25 07/21/25 11:43 20:12 03:27 WBC 6.4 RBC 3.58 L Hgb 11.2 L Hct 34.8 L MCV 97.2 MCH 31.3 MCHC 32.2 RDW 13.8 Plt Count 214 MPV 10.4 Immature Gran % (Auto) 0.3 Neut % (Auto) 47.3 Lymph % (Auto) 41.0 [place] % (Auto) 7.6 Eos % (Auto) 3.0 Baso % (Auto) 0.8 Lymph # (Auto) 2.63 [place] # (Auto) 0.5 Eos # (Auto) 0.2 Baso # (Auto) 0.1 Abs Immat Gran (auto) 0.02 Absolute Neuts (auto) 3.0 Absolute Nucleated RBC 0.000 Nucleated RBC % 0.0 APTT 133.7 H 62.3 H 99.4 H Sodium 134 L Potassium 3.7 Chloride 103 Carbon Dioxide 24 Anion Gap 7 BUN 15 Creatinine 0.85 Estim Creat Clear Calc 67 Estimated GFR > 60 Glucose 96 Calcium 9.4 Total Bilirubin 0.5 AST 36 ALT 13 Alkaline Phosphatase 61 Total Protein 6.4 Albumin 3.9 ASA Classification/Sedation ASA Classification/Sedation ASA Class: III Emergent: No Risks: Risks, benefits and alternatives explained and patient/family accepted plan for sedation. Patient re-evaluated immediately prior to sedation.
[2025-07-21 10:01] LABS: Partial Thromboplastin Time 90.4 Seconds (22.3-36.8)
--- NOTE | 2025-07-21 11:20 | P.PCNCC_ITS ---
Cardiac Cath Procedure Note Date of procedure:: 07/21/25 Performing physician:: CATHETERIZATION LABORATORY REPORT Procedure Date: 07/21/2025 Referring Physician: Dr. Ying Anesthesia: Versed and Fentanyl were ordered and given in my presence at 1058, procedure ended at 1113. Supervision of nurse, Genia Crandall monitored moderate sedation with 2mg Versed and 50mcg Fentanyl was provided for 15 minutes. Pre-op Diagnosis: NSTEMI Post-op Diagnosis: NSTEMI Procedure(s): Left heart catheterization with coronary angiography Access Site: Right radial artery Brief History and Clinical Indications: All risks, benefits and alternatives to left heart catheterization with or without percutaneous coronary intervention was discussed at length with the patient. Risk of complications including but not limited to bleeding, infection, arrhythmia, stroke, worsening kidney function, blood loss, groin hematoma, limb loss, emergency coronary artery bypass grafting, and even were discussed with the patient and all questions were answered. The patient understood and wished to proceed. Time out called, patient name, date of , medical record number, allergies, procedure performed, identify Sound Controller, patient and staff member concurred with accurate data, procedure carried on. Findings: LEFT HEART CATHETERIZATION FINDINGS: 1. Left main: The left main coronary artery is widely patent without any significant obstructive disease. 2. Left anterior descending: The LAD in its mid body has 20-30% stenosis. The remainder of the vessel and its branches have luminal irregularities.. 3. Left circumflex: The left circumflex artery and the main marginal branches have mild luminal irregularities without any significant obstructive angiographic disease. 4. Right coronary artery: The RCA is a large dominant vessel that is angiographically free of stenosis. 5. Left ventricle: A. End-diastolic pressure 14 mmHg. B. LV gram deferred. C. No significant gradient across aortic valve on catheter pullback. 6. Opening AO pressure 92/63 and closing AO pressure 86/62 Description of Procedure: Informed consent signed and placed in the chart. Patient transferred to pharmaceutical laboratory technician room. Prepped and draped in usual sterile fashion. 2% lidocaine injected subcutaneously in right wrist area. 22-gauge venipuncture catheter used to access the right radial artery with the Seldinger technique. 6-FR slender sheath placed in right radial artery. Nitroglycerin 200mcg, Verapamil 2.5mg, and Heparin 5000U was given intraarterial through the sheath. J wire advanced under fluoroscopy. 5F Ultra diagnostic catheter engaged Left Main Coronary Artery and Right Coronary Artery Multiple orthogonal angiogram obtained and reviewed 5F Ultra diagnostic catheter crossed aortic valve to obtain LVEDP, LV angiogram deferred. Hemostasis was achieved by application of TR band. Assessment: Nonischemic Cardiomyopathy Post Operative Condition: Stable No significant blood loss Disposition: Floor Plan: The patient will be monitored in the recovery area. DAPT for 1 year followed by ASA indefinitely. Continue beta myke and ARB. Continue aggressive medical therapy and risk factor modification. If patient asymptomatic with ambulation, ok to discharge home from cardiology perspective. Bharathi Ross Interventional Cardiology
[2025-07-21] MEDS: SODIUM CHLORIDE 0.9% IV 1,000 ML 75 ML IV CONT (12:00)
[2025-07-21] MEDS: ASPIRIN 81 MG CHEWABLE TABLET PO (14:25)
[2025-07-21] MEDS: LORATADINE 10 MG TABLET PO (14:25)
[2025-07-21] MEDS: LOSARTAN POTASSIUM 25 MG TABLET PO (14:25)
[2025-07-21] MEDS: CHOLECALCIFEROL (VITAMIN D3) 125 MCG (5,000 UNITS) TABLET 250 MCG PO (14:27)
[2025-07-21] MEDS: POTASSIUM CHLORIDE 20 MEQ PO (14:27)
--- NOTE | 2025-07-21 14:52 | P.DS_ITS ---
DS: Admitting Diagnosis Discharge Date 07/21/2025 Admitting Diagnosis NSTEMI DS: Discharge Diagnosis Discharge Diagnosis (1) Non-ST elevation [place] (NSTEMI): Code(s): I21.4 - Non-ST elevation (NSTEMI) myocardial infarction Status: Acute Assessment and Plan: * Presented with chest pain and elevated troponin in ED * EKG: Sinus rhythm, RBBB, rate 63, QTc 542 * Troponins continued to increase, however CP resolved after sublingual nitroglycerin, nitro paste and morphine * Cardio consult * NPO for cardiac catheterization * Aspirin * Heparin infusion * Statin * Decrease Losartan to 25mg daily * Plan for cardiac cath tomorrow (2) Hypertension: Qualifiers: Hypertension type: primary hypertension Qualified Code(s): I10 - Essential (primary) hypertension Code(s): I10 - Essential (primary) hypertension Status: Acute Assessment and Plan: * Patient's blood pressure was reviewed on 07/20 * Blood pressure remains well controlled. * Will continue current medications - although decrease losartan to 25mg * 114/60 (3) Hyperlipidemia: Qualifiers: Hyperlipidemia type: unspecified Qualified Code(s): E78.5 - Hyperlipidemia, unspecified Code(s): E78.5 - Hyperlipidemia, unspecified Status: Acute Assessment and Plan: * Allergy to Gjxilga-PPP-UcV reductase Inhibitor * Currently taking Evolocumab (Raptha) as she cannot take statins DS: Summary Hospital Course Reason for hospitalization: Chest pain Hospital Course: Per H&P: 70-year-old female with a past medical history essential hypertension, GERD and pericarditis in 2022 who presented to the ER with chest pain. The patient reports that she has been under increased stress due to a confrontation that occurred with with family and the human resources benefits manager last night. She started developing substernal chest tightness at that time that was moderate in nature. She reported that the symptoms went away after about an hour so when the stressful situation had resolved. She reported some associated shortness of breath. She reports she felt like something was sitting on her chest. She went home and stated that she just did not feel quite as good as usual and was fatigued. She then woke up today and noticed that even with minimal exertion she was having some chest tightness. She then went to take her puppy dogs for walk and with only minimal exertion back again having 9/10 chest pain that was not getting better with rest. She reported the pain radiated back to her shoulder blades and was constant. The pain actually got worse when she arrived at the ER and she felt so weak that her significant other had to push her into the ER in a wheelchair. When she arrived at triage the patient became acutely nauseated and lightheaded and felt as if he was going to pass out. That is when the pain was the most intense across her shoulders. She reports that she feels like she has a ?wrong out wash rag?. Her pain was significant improved with sublingual nitroglycerin and IV morphine. Subsequently nitropaste was started because patient was still having some mild chest pressure. The patient refused aspirin initially because she stated that it messed with her stomach. She states that when she was on the NSAIDs for the pericarditis she had severe gastric irritation it took months for her stomach discomfort to resolve. She states that she used to be on 81 mg aspirin in it did not bother her. It was not until the time of my evaluation that the patient stated that she tolerated aspirin without difficulty in small doses. So she did not get full-dose aspirin in the ER. She was started on heparin drip when her troponin came back elevated greater than 1. She reports that she has had multiple heart caths in the past. 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 Meredith at [facility]. Her most recent cardiac catheterization was in 2009 at our facility which demonstrated angiographically normal coronary arteries. She states that she is supposed to have an outpatient echocardiogram with her tile molder hand on the in preparation for her to have a back surgery a few days after that. Hospital Course: Cardiology consulted regarding NSTEMI as seen by uptrending troponins (1.95 -> 3.68 -> 3.14). Per Cardiology: NSTEMI likely 2/2 to acs vs stress induced myopathy, possible caused by LAD occlusion. Underlying factors include dyslipidemia, hypertension. Plan for cardiac catheterization at time, along with aspirin, heparin infusion, statin and decrease dose of losartan to 25mg daily. On 07/21, patient taken for cardiac cath which had the following findings: 1. Left main: The left main coronary artery is widely patent without any significant obstructive disease. 2. Left anterior descending: The LAD in its mid body has 20-30% stenosis. The remainder of the vessel and its branches have luminal irregularities.. 3. Left circumflex: The left circumflex artery and the main marginal branches have mild luminal irregularities without any significant obstructive angiographic disease. 4. Right coronary artery: The RCA is a large dominant vessel that is angiographically free of stenosis. 5. Left ventricle: A. End-diastolic pressure 14 mmHg. B. LV gram deferred. C. No significant gradient across aortic valve on catheter pullback. 6. Opening AO pressure 92/63 and closing AO pressure 86/62 After this procedure, Cardiology cleared the patient for discharge from their perspective with the above mentioned recommendations. To be placed on DAPT for 1 year (to be managed by primary), continue b-myke and ARB with risk factor modification. Patient was reevaluated after procedure and was completely asymptomatic. Medically hemodynamically stable, plan to discharge patient home with appropriate medication regimen and to follow up with PCP. Status at Discharge Functional status at discharge: independent ambulation Overall status at discharge: patient is back to baseline Time Spent with Patient Time attestation: Total time spent providing and/or coordinating discharge services: 32 Exam Narrative: Weight 108 kg BMI 38.4 Const: Other: No acute distress, obese, appears stated age HENMT: Other: Mucous membranes are tacky, no oral pharyngeal erythema, head is normocephalic atraumatic Eyes: Other: Bilateral lens replacements noted, no scleral icterus, no conjunctival pallor Neck: Other: Irregular thyroid, large neck circumference, no JVD Chest: Other: No reproducible tenderness palpation Resp: Other: Clear to auscultation bilaterally, no increased work of breathing Cardio: Other: Regular rate, regular rhythm, 2+ bilateral radial pedal pulses, no murmur GI: Other: Obese, soft, nontender, normoactive bowel sounds Skin: Other: Generalized pallor, non jaundice Neuro: Other: Alert orient x4, speech is clear, no facial asymmetry Extrem: Other: No clubbing, cyanosis or edema Psych: Other: Appropriate mood and affect, pleasant and cooperative, judgment and insight intact DS: Data Data Completed and Pending Labs on day of discharge: Labs from last 24 hours 07/21/25 07/21/25 07/20/25 09:30 03:27 20:12 WBC 6.4 RBC 3.58 L Hgb 11.2 L Hct 34.8 L MCV 97.2 MCH 31.3 MCHC 32.2 RDW 13.8 Plt Count 214 MPV 10.4 Immature Gran % (Auto) 0.3 Neut % (Auto) 47.3 Lymph % (Auto) 41.0 [place] % (Auto) 7.6 Eos % (Auto) 3.0 Baso % (Auto) 0.8 Lymph # (Auto) 2.63 [place] # (Auto) 0.5 Eos # (Auto) 0.2 Baso # (Auto) 0.1 Abs Immat Gran (auto) 0.02 Absolute Neuts (auto) 3.0 Absolute Nucleated RBC 0.000 Nucleated RBC % 0.0 APTT 90.4 H 99.4 H 62.3 H Sodium 134 L Potassium 3.7 Chloride 103 Carbon Dioxide 24 Anion Gap 7 BUN 15 Creatinine 0.85 Estim Creat Clear Calc 67 Estimated GFR > 60 Glucose 96 Calcium 9.4 Total Bilirubin 0.5 AST 36 ALT 13 Alkaline Phosphatase 61 Total Protein 6.4 Albumin 3.9 Discharge Plan Discharge Attending physician on discharge: Shaheen Darling Consulting providers: Rashad Weathers; Bharathi Ross; Wilbert Olivo; Jj Lopez Discharging Clinician: Naga Wilson Anticipated Discharge Date/Time: 07/21/25 14:47 Patient Disposition: Home Activity: no straining and as tolerated Diet: heart healthy Discharge Instructions: [facility] [address] [place] [id number] DISCHARGE INSTRUCTIONS - POST RADIAL CATH Activity 1. No driving for 24 hours. 2. No lifting more than 5 lb with affected arm for 1 week. 3. May shower ( tomorrow) but no excessive soaking of affected hand/wrist (such as washing dishes), swimming pool or hot tub for 5 days. Wound Care 1. May remove arm board in the morning. 2. May remove gauze dressing in the morning and put Band-Aid over affected radial site. Keep site covered for 3 days. 3. Observe for redness, drainage, swelling or bleeding. Medications DO NOT STOP YOUR MEDICATIONS ONLY YOUR DIRECTOR BUSINESS DEVELOPMENT CAN STOP THE FOLLOWING MEDICATIONS - PLEASE CALL THE OFFICE WITH QUESTIONS. *Aspirin *Ticagrelor (Brilinta) *Atorvastatin *Lisinopril or ARB *Metoprolol tartrate or succinate *Clopidogrel (Plavix) *Prasugrel (Effient) Important Reminders 1. Keep your stent card in your wallet at all times 2. Follow a heart healthy diet paying extra attention to cholesterol and fats. 3. Stay hydrated. 4. If you have chest pain unrelieved by rest or nitroglycerin (if prescribed) call 911 immediately. 5. If you miss one dose of Brilinta (if prescribed) take a tablet at the next time due. If you miss 2 doses take a tablet when you remember and resume at the next time due. *For any other questions please call the office at [phone]. Office hours a re 8AM 4:30PM Sunday through Sunday. Patient Instructions: Antibiotic Form, Heparin/Sodium Chloride Premix (Injection), Heart Attack (GEN), Heart Healthy Diet (GEN) Patient Language: Lithuanian Stand Alone Forms: General Discharge Information Follow-up/Referrals: Da Malcolm MD [Primary Care Provider, Internal Medicine] Discharge Medications: New aspirin [Children's Aspirin] 81 mg Tablet,Chewable 81 mg PO DAILY@0800 Qty: 30 0RF clopidogrel 75 mg Tablet 75 mg PO QAM Qty: 30 0RF Continued allopurinol 100 mg tablet 200 mg PO DAILY cranberry extract [Cranberry Concentrate] 500 mg capsule 15,000 mg PO DAILY cholecalciferol (vitamin D3) 125 mcg (5,000 unit) capsule 250 mcg PO DAILY losartan-hydrochlorothiazide 100-25 mg tablet 0.5 tablet PO DAILY potassium chloride 10 mEq tablet,ER particles/crystals 20 meq PO DAILY nadolol 20 mg tablet 20 mg PO HS gabapentin 300 mg capsule 600 mg PO HS cetirizine [24Hour Allergy] 10 mg tablet 10 mg PO DAILY PRN (Reason: allergy symptoms) vitamin A 2,400 mcg capsule 2,400 mcg PO DAILY Mounjaro 2.5 mg/0.5 mL pen injector 2.5 mg subcut WEEKLY Rx Instructions: for 4 weeks Repatha Syringe 140 mg/mL syringe 140 mg subcut ONCE Date of admission: 07/21/25 09:53 Primary Care Provider: Da Malcolm Admitting Provider: Elizabeth Ying Attending physician on admission: Naga Wilson Condition: Stable Quality VTE Prophylaxis VTE prophylaxis: pharmacologic ordered (Heparin GGT per protocol)
== END 2025-07-21 16:53 | disposition home or self-care (01) | DRG 287 ==
LOC: ANHED 22:23 → ANHIMU 22:57
PROVIDERS: Internal Medicine; Admitting Provider Internal Medicine; Emergency Provider Emergency Medicine; PCP Internal Medicine; Visit Provider Physician Assistant
PROC: 4A023N7 Measurement of Cardiac Sampling and Pressure, Left Heart, Percutaneous Approach (ICD-10-PCS; CPT 93452; principal; 2025-07-21 11:00)
DX: I42.8 Other cardiomyopathies (principal); I10 Essential (primary) hypertension; G72.89 Other specified myopathies; K21.9 Gastro-esophageal reflux disease without esophagitis; E78.5 Hyperlipidemia, unspecified; M19.09 Primary osteoarthritis, other specified site; F10.91 Alcohol use, unspecified, in remission; D64.9 Anemia, unspecified; E66.9 Obesity, unspecified; Z98.61 Coronary angioplasty status; Z68.38 Body mass index [BMI] 38.0-38.9, adult; Z86.79 Personal history of other diseases of the circulatory system; Z87.891 Personal history of nicotine dependence
CPT/HCPCS: 36415; 71046; 80053; 80061; 83690; 84484; 85025; 85610; 85730; 93005; 93306; 93458; 96374; 99285; A9270; C1769; C1887; C1894; G0378; J1644; J2003; J2250; J2270; J2305; J3010; J7030; J7040

== ENCOUNTER 2025-09-01 08:41 | Outpatient (CLI) | payer MEDICARE, SELFPAY ==
--- NOTE | 2025-09-01 09:00 | NEURO_ITS ---
Impression: # Complains of numbness of left hand. # History of being mildly diabetic. # Left Ulnar Neuropathy across the elbow. # Abnormal Needle/ EMG exam Nerve Conduction Studies ?Stim Site NR Peak (ms) P-T Amp (?V) Site1 Site2 Delta-P (ms) Dist (cm) Marcelo (m/s) Left Sup Fibular Anti Sensory (Ant Lat Mall)??? NO RESPONSE 14 cm NR 14 cm Ant Lat Mall 16.0 Right Sup Fibular Anti Sensory (Ant Lat Mall)??? NO RESPONSE 14 cm NR 14 cm Ant Lat Mall 16.0 Left Sural Anti Sensory (Lat Mall)??? NO RESPONSE Calf NR Calf Lat Mall 16.0 Right Sural Anti Sensory (Lat Mall)??? NO RESPONSE Calf NR Calf Lat Mall 16.0 ?Stim Site NR Onset (ms) O-P Amp (mV) Site1 Site2 Delta-0 (ms) Dist (cm) Marcelo (m/s) Left Peroneal Motor (Vastus Med)??? NO RESPONSE Ankle NR Popit Ankle 0.0 Popit NR Right Peroneal Motor (Vastus Med) Ankle ? 8.8 0.0 Popit Ankle 16.4 45.0 27 Popit ? 25.2 0.1 Left Tibial Motor (Abd Sanz Brev)??? NO RESPONSE Ankle NR Right Tibial Motor (Abd Sanz Brev)??? NO RESPONSE Ankle NR Knee NR F Wave Studies ?NR F-Lat (ms) L-R F-Lat (ms) Left Peroneal (Mrkrs) (EDB)??? DISPERSED RESPONSE NR Right Peroneal (Mrkrs) (EDB)??? DISPERSED RESPONSE NR Left Tibial (Mrkrs) (Abd Hallucis)??? DISPERSED RESPONSE NR Right Tibial (Mrkrs) (Abd Hallucis)??? DISPERSED RESPONSE NR Electromyography ?Side Muscle Nerve Root Ins Act Fibs Amp Dur Recrt Comment Left AntTibialis Dp Br Fibular L4-5 Nml Nml Nml >12ms Nml Right AntTibialis Dp Br Fibular L4-5 Nml Nml Nml >12ms Nml Right Ext Dig Brev Dp Br Fibular L5, S1 Nml Nml Nml >12ms Nml Left Ext Dig Brev Dp Br Fibular L5, S1 Nml Nml Nml >12ms Nml Right Fibularis Long Sup Br Fibular L5-S1 Nml Nml Nml >12ms Nml Left Fibularis Long Sup Br Fibular L5-S1 Nml Nml Nml >12ms Nml Right Flex Dig Long Tibial L5-S2 Nml Nml Nml >12ms Nml Left Flex Dig Long Tibial L5-S2 Nml Nml Nml >12ms Nml Right Gastroc Tibial S1-2 Nml Nml Nml >12ms Nml Left Gastroc Tibial S1-2 Nml Nml Nml >12ms Nml Right QuadratusFem QuadFemoris L4-5, S1 Nml Nml Nml Nml Nml Left QuadratusFem QuadFemoris L4-5, S1 Nml Nml Nml Nml Nml
--- OUTSIDE RECORDS SUMMARY | 2025-09-01 09:09 | XMS_ITS | Encounter Summary ---
Author Organization [employer] Address [address] [place] [address] Care Team Providers Care Security Control Center Operator Name Role Phone Da Malcolm MD Primary Care Provider + Encounter Details Date Type Department Care Team (Late st Contact Info) Description 05/19/2002 Outpatient [facility] [address] [place] [address] 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
--- OUTSIDE RECORDS SUMMARY | 2025-09-01 09:09 | XMS_ITS | Encounter Summary ---
Author Organization [employer] Address [address] [place] [address] Care Team Providers Care Underwriting Support Specialist Name Role Phone Da Malcolm MD Primary Care Provider + Encounter Details Date Type Department Care Team (Late st Contact Info) Description 06/02/2002 Outpatient [facility] [address] [place] [address] 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
--- OUTSIDE RECORDS SUMMARY | 2025-09-01 09:09 | XMS_ITS | Encounter Summary ---
Author Organization [facility] Address [address] [facility] [place] [address] Care Team Providers Care Wood Turning Lathe Operator Name Role Phone Unavailable Primary Care Provider Unavailabl e Encounter Details Date Type Department Care Team (Late st Contact Info) Description 02/27/2014 [facility] Outpatient Visit EXTERNAL NON-[facility] DEPT Fred Brooks MD [address] [phone] Social History Tobacco Use Types Packs/Day Years Used Date Smoking Tobacco: Former Cigarettes Q uit: 11/19/1998 Smokeless Tobacco: Never Alcohol Use Standard Drinks/Week Comments No 0 (1 standard drink = 0.6 oz pur e alcohol) Comments No Sex and Gender Information Value Date Recorded Sex Assigned at Not on file 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
--- OUTSIDE RECORDS SUMMARY | 2025-09-01 09:09 | XMS_ITS | Encounter Summary ---
Author Organization [facility] Health Address [address] [place] [address] Care Team Providers Care Loft Worker Pile Driving Name Role Phone Unavailable Primary Care Provider Unavailabl e Encounter Details Date Type Department Care Team (Late st Contact Info) Description 03/04/2014 [facility] Outpatient Visit EXTERNAL NON-[facility] DEPT Fred Brooks MD [address] [phone] Social History Tobacco Use Types Packs/Day Years Used Date Smoking Tobacco: Former Cigarettes Q uit: 11/19/1998 Smokeless Tobacco: Never Alcohol Use Standard Drinks/Week Comments No 0 (1 standard drink = 0.6 oz pur e alcohol) Comments No Sex and Gender Information Value Date Recorded Sex Assigned at Not on file Legal Sex Female 3:04 PM FLAP CURER Gender Identity Not on file Sexual Orientation Not on file documented as of this encounter Plan of Treatment Not on file documented as of this encounter Visit Diagnoses Not on filedocumented in this encounter
--- OUTSIDE RECORDS SUMMARY | 2025-09-01 09:09 | XMS_ITS | Patient Health Record ---
Author Organization [facility] Address [address] [place], [place] [id number] Support Name Relationship Address Phone LEEANNE ROSALES Guarantor Unknown [phone] Reason For Referral No Information Plan Of Treatment No Information Insurance Providers Payer Name Payer Address Payer Phone Subscriber Number Group Number Insured Name Patient Relationship to Insured Coverage Start Date Coverage End Date [facility] ([facility] ATTN CLAIMS [address] [place] [address] [id number] LEEANNE ROSALES Self - patient is the insured
--- OUTSIDE RECORDS SUMMARY | 2025-09-01 09:09 | XMS_ITS | Clinical Summary ---
Author Organization [facility] Address [facility] [address] [place] [address] Care Team Providers Care Occupational Therapist Per Diem Name Role Phone Da Malcolm MD Primary Care Provider [phone] Clarence Colon MD Unavailable [phone] Allergies Active Allergy Reactions Criticality Noted Date [...] of lumbar region 09/04/2023 Thyroid nodule 06/24/2020 Encounters Date Type Department Care Team Description 07/29/2025 Orders Only [facility] Cardiology [address] [place] [address] Rashad Weathers MD from Last 3 Months Surgical History Surgery Date Site/Laterality Comments NECK SURGERY Neck Surgery - X2 in 2001,2009 (Added by TW Conv) BACK SURGERY Lower Back Surgery - (Added by TW Conv) ID TOTAL ABDOMINAL HYSTERECT W/WO RMVL TUBE OVARY Hysterectomy - partial 1977 (Added by TW Conv) FOOT SURGERY Foot Surgery Left - May 06 2014 (Added by TW Conv) ID REPAIR RECTOCELE SEPARATE PROCEDURE Rectocele Repair - [...] on file Legal Sex Female 12:37 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 Gender Identity Not on file Sexual Orientation Not on file Obstetrics History Last Filed Vital Signs Vital Sign Reading Time Taken Comments Blood Pressure 123/65 09/23/2023 12:20 PM LUMBER CARRIER OPERATOR Pulse 79 09/23/2023 12:20 PM LUMBER CARRIER OPERATOR Temperature 36.8 C (98.2 F) 09/23/2023 12:20 PM LUMBER CARRIER OPERATOR Respiratory Rate 18 09/23/2023 12:20 PM LUMBER CARRIER OPERATOR Oxygen Saturation 94% 09/23/2023 12:20 PM LUMBER CARRIER OPERATOR Inhaled Oxygen Concentration - - Weight 108.9 [...] Assessment 09/23/2024 09/23/2023 Influenza Vaccine (#1) 2025 Procedures Procedure Name Priority Date/Time Associated Diagnosis Comments CARDIOLOGY DOCUMENT SCAN Routine 07/20/2025 3:12 PM CDT from Last 3 Months Results * Cardiology Document Scan (07/20/2025 3:12 PM CDT) Anatomical Region Laterality Modality Other Rashad Weathers MD CV CARDIAC SERVICES PROCEDU RES Final Result from Last 3 Months Insurance [employer]ICE MEDICARE PPO HU[employer] CHOICE MEDICARE PPO [facility] MEDICARE ADVANTAGE Advance Directives For more information, please contact: [phone] * Full Code (Latest Code Status on File) Date Activated Date Inactivated Comments 09/21/2023 6:51 PM 09/23/2023 7:28 PM Care Teams Occupational Therapist Per Diem Relationship Specialty Start Date End Date Da Malcolm MD [address] [place] [address] PCP - General 05/31/10 Clarence Colon MD [address] [place] [address] Consulting Physician Neurosurgery 09/21/23
--- OUTSIDE RECORDS SUMMARY | 2025-09-01 09:09 | XMS_ITS | Clinical Summary ---
Author Organization [facility] Address [address] [facility] [place] [address] Care Team Providers Care Engineering Technician Parking Name Role Phone Unavailable Primary Care Provider Unavailabl e Source Comments [facility],non-owned Affiliates and Associated Physician Practices is amultiple site organization consisting of ambulatory clinics and hospital sitesin [place], [place], [place] and [place]. This disclosure is being madepursuant to the Care Everywhere program and may not contain all information available regarding this patient. 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 Procedure Code(s): --- Professional --- 21252, Colonoscopy, flexible, proximal to splenic flexure; diagnostic, with or without collection of specimen(s) by brushing or washing, with or without colon decompression (separate procedure) --- Technical --- 58483, Colonoscopy, flexible, proximal to splenic flexure; diagnostic, with or without collection of specimen(s) by brushing or washing, with or without colon decompression (separate procedure) Diagnosis Code(s): --- Professional --- V76.51, Special screening for malignant neoplasms of colon --- Technical --- V76.51, Special screening for malignant neoplasms of colon CPT copyright 2013 [employer]. All rights reserved. The codes documented in this report are preliminary and upon media sales executive review may be revised to meet current compliance requirements. Dr. Fred Brooks MD _ Fred Brooks MD 05/19/2014 8:33 AM This report has been signed electronically. Number of Addenda: 0 Note Initiated On: 05/19/2014 7:07 AM [facility] ENDOSCOPY 05/19/2014 7:07 AM CDT Anca Cisco SEPHORA PRODUCT CONSULTANT-NIGHT WAREHOUSE MANAGER GI PROCEDURE ORDERABLES Edited Result - [place] [address] from Last 3 Months or Most Recently Relevant to Health Maintenance Insurance Advance Directives * Full Code (Latest Code Status on File) Date Activated Date Inactivated Comments 05/19/2014 12:50 PM 05/21/2014 1:43 PM
--- OUTSIDE RECORDS SUMMARY | 2025-09-01 09:09 | XMS_ITS | Encounter Summary ---
Author Organization [employer] Address [address] [place] [address] Care Team Providers Care Hypercil Core Transformer Assembler Name Role Phone Da Malcolm MD Primary Care Provider + Encounter Details Date Type Department Care Team (Late st Contact Info) Description 05/19/[address] [facility] [address] [place] [address] 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
--- OUTSIDE RECORDS SUMMARY | 2025-09-01 09:09 | XMS_ITS | Encounter Summary ---
Author Organization [facility] Address [address] [place] [address] Care Team Providers Care Semiautomatic Taper Operator Name Role Phone Da Mlacolm MD Primary Care Provider + Encounter Details Date Type Department Care Team (Late st Contact Info) Description 05/15/[address] 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 Gender Identity Not on file Sexual Orientation Not on file documented as of this encounter Plan of Treatment Not on file documented as of this encounter Procedures Procedure Name Priority Date/Time Associated Diagnosis Comments D-DIMER Stat 05/15/2023 10:20 AM CDT documented in this encounter Results * D-DIMER (05/15/2023 10:20 AM CDT) D-DIMER QUANT 0.38 <0.42 ug/mL FEU 05/15/2023 11:25 AM CDT [facility] [employer] [facility] Blood Collection / Unknown 05/15/2023 10:20 AM CDT 05/15/2023 11:01 AM CDT Narrative [facility] - 05/15/2023 11:25 AM CDT D-Dimer assay [...] years: 0.71-0.80 ug/mL FEU us External Provider [facility] HEMATOLOGY ORDERABLES Fi nal Result [facility]# [id number] [address] [facility] [place] [address] documented in this encounter Visit Diagnoses Not on filedocumented in this encounter Care Teams Semiautomatic Taper Operator Relationship Specialty Start Date End Date Da Malcolm MD [address] [place] [address] PCP - General Internal Medicine 01/09/23 documented as of this encounter
--- OUTSIDE RECORDS SUMMARY | 2025-09-01 09:09 | XMS_ITS | Clinical Summary ---
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
--- NOTE | 2025-09-01 09:40 | NEURO_ITS ---
Impression: # Complains of numbness of hands. # Bilateral Carpal Tunnel Syndrome, right more than left. # Mild left Ulnar Neuropathy across the elbow. # Normal Needle/ EMG exam. Nerve Conduction Studies ?Stim Site NR Peak (ms) P-T Amp (?V) Site1 Site2 Delta-P (ms) Dist (cm) Marcelo (m/s) Left Median Anti Sensory (2-3nd Digit) Wrist ? 3.8 27.3 Wrist 2-3nd Digit 3.8 14.0 37 Wrist ? 4.1 27.9 Wrist 2-3nd Digit 3.8 14.0 37 Left Radial Anti Sensory (Base 1st Digit) Wrist ? 2.4 13.8 Wrist Base 1st Digit 2.4 0.0 Left Ulnar Anti Sensory (5th Digit) Wrist ? 3.6 27.6 Wrist 5th Digit 3.6 14.0 39 ?Stim Site NR Onset (ms) O-P Amp (mV) Site1 Site2 Delta-0 (ms) Dist (cm) Marcelo (m/s) Left Median Motor (Abd Poll Brev) Wrist ? 4.3 3.3 Elbow Wrist 5.6 30.0 54 Elbow ? 9.9 3.0 Left Ulnar Motor (Abd Dig Minimi) Wrist ? 2.9 3.4 A Elbow Wrist 6.2 31.0 50 A Elbow ? 9.1 2.8 B Elbow Wrist 4.5 23.0 51 B Elbow ? 7.4 3.8 F Wave Studies ?NR F-Lat (ms) L-R F-Lat (ms) Left Median (Mrkrs) (Abd Poll Brev) ? 30.08 Left Ulnar (Mrkrs) (Abd Dig Min) ? 29.77 Electromyography ?Side Muscle Nerve Root Ins Act Fibs Amp Dur Recrt Comment Left 1stDorInt Ulnar C8-T1 Nml Nml Nml >12ms +1 Left ABD Dig Min Ulnar C8-T1 Nml Nml Nml >12ms +1 Left Abd Poll Brev Median C8-T1 Nml Nml Nml Nml Nml Left Abd Poll Long Radial (Post Int) C7-8 Nml Nml Nml Nml Nml Left BrachioRad Radial C5-6 Nml Nml Nml Nml Nml Left Ext Digitorum Radial (Post Int) C7-8 Nml Nml Nml Nml Nml Left Ext Indicis Radial (Post Int) C7-8 Nml Nml Nml Nml Nml Left FlexPolLong Median (Ant Int) C7-8 Nml Nml Nml Nml Nml Left PronatorTeres Median C6-7 Nml Nml Nml Nml Nml
--- NOTE | 2025-09-01 15:00 | NEURO_ITS ---
Impression: # Complains of numbness of left hand. ? # History of being mildly diabetic. ? # Left ulnar neuropathy across the elbow. ? # Mild abnormal needle/EMG exam. Nerve Conduction Studies ?Stim Site NR Peak (ms) P-T Amp (?V) Site1 Site2 Delta-P (ms) Dist (cm) Marcelo (m/s) Left Median Anti Sensory (2-3nd Digit) Wrist ? 3.8 27.3 Wrist 2-3nd Digit 3.8 14.0 37 Wrist ? 4.1 27.9 Wrist 2-3nd Digit 3.8 14.0 37 Left Radial Anti Sensory (Base 1st Digit) Wrist ? 2.4 13.8 Wrist Base 1st Digit 2.4 0.0 Left Ulnar Anti Sensory (5th Digit) Wrist ? 3.6 27.6 Wrist 5th Digit 3.6 14.0 39 ?Stim Site NR Onset (ms) O-P Amp (mV) Site1 Site2 Delta-0 (ms) Dist (cm) Marcelo (m/s) Left Median Motor (Abd Poll Brev) Wrist ? 4.3 3.3 Elbow Wrist 5.6 30.0 54 Elbow ? 9.9 3.0 Left Ulnar Motor (Abd Dig Minimi) Wrist ? 2.9 3.4 A Elbow Wrist 6.2 31.0 50 A Elbow ? 9.1 2.8 B Elbow Wrist 4.5 23.0 51 B Elbow ? 7.4 3.8 F Wave Studies ?NR F-Lat (ms) L-R F-Lat (ms) Left Median (Mrkrs) (Abd Poll Brev) ? 30.08 Left Ulnar (Mrkrs) (Abd Dig Min) ? 29.77 Electromyography ?Side Muscle Nerve Root Ins Act Fibs Amp Dur Recrt Comment Left 1stDorInt Ulnar C8-T1 Nml Nml Nml >12ms +1 Left ABD Dig Min Ulnar C8-T1 Nml Nml Nml >12ms +1 Left Abd Poll Brev Median C8-T1 Nml Nml Nml Nml Nml Left Abd Poll Long Radial (Post Int) C7-8 Nml Nml Nml Nml Nml Left BrachioRad Radial C5-6 Nml Nml Nml Nml Nml Left Ext Digitorum Radial (Post Int) C7-8 Nml Nml Nml Nml Nml Left Ext Indicis Radial (Post Int) C7-8 Nml Nml Nml Nml Nml Left FlexPolLong Median (Ant Int) C7-8 Nml Nml Nml Nml Nml Left PronatorTeres Median C6-7 Nml Nml Nml Nml Nml ?
== END 2025-09-01 08:42 | disposition home or self-care (01) ==
LOC: ANHNEURO 08:42
PROVIDERS: PCP Internal Medicine; Visit Provider Physician Assistant Surgical
DX: G56.22 Lesion of ulnar nerve, left upper limb (principal); G56.03 Carpal tunnel syndrome, bilateral upper limbs; E11.9 Type 2 diabetes mellitus without complications; R94.131 Abnormal electromyogram [EMG]
CPT/HCPCS: 95886; 95909

== ENCOUNTER 2025-09-10 09:25 | Outpatient (CLI) | payer MEDICARE, SELFPAY ==
--- NOTE | ~2025-09-10 | XR_ITS ---
EXAMINATION: XR knee RT min 4V, 09/10/2025 9:35 CDT HISTORY: M25.562 - Pain in left knee AND RIGHT KNEE COMPARISON: No comparisons available. Findings: No acute fracture or malalignment. Moderate tricompartmental degenerative changes with chondrocalcinosis and small effusion Soft tissues unremarkable. Impression: No acute fracture or malalignment. Reviewed, dictated and finalized at location P. Impression: No acute fracture or malalignment.
--- OUTSIDE RECORDS SUMMARY | 2025-09-10 09:59 | XMS_ITS | Clinical Summary ---
Author Organization [facility] Address [address] [place] [address] Care Team Providers Care Juvenile Correctional Officer Name Role Phone Unavailable Primary Care Provider Unavailabl e Source Comments [facility],non-owned Affiliates and Associated Physician Practices is amultiple site organization consisting of ambulatory clinics and hospital sitesin [place], [place], [place] and [place]. This disclosure is being madepursuant to the Care Everywhere program and may not contain all information available regarding this patient. 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 Procedure Code(s): --- Professional --- 66427, Colonoscopy, flexible, proximal to splenic flexure; diagnostic, with or without collection of specimen(s) by brushing or washing, with or without colon decompression (separate procedure) --- Technical --- 79488, Colonoscopy, flexible, proximal to splenic flexure; diagnostic, with or without collection of specimen(s) by brushing or washing, with or without colon decompression (separate procedure) Diagnosis Code(s): --- Professional --- V76.51, Special screening for malignant neoplasms of colon --- Technical --- V76.51, Special screening for malignant neoplasms of colon CPT copyright 2013 [employer]. All rights reserved. The codes documented in this report are preliminary and upon mortar worker review may be revised to meet current compliance requirements. Dr. Fred Brooks MD _ Fred Brooks MD 05/19/2014 8:33 AM This report has been signed electronically. Number of Addenda: 0 Note Initiated On: 05/19/2014 7:07 AM [facility] ENDOSCOPY 05/19/2014 7:07 AM CDT Anca Cisco AERIAL PHOTOGRAPH INTERPRETER-JOINERY SETTER OUT GI PROCEDURE ORDERABLES Edited Result [place] [address] from Last 3 Months or Most Recently Relevant to Health Maintenance Insurance Advance Directives * Full Code (Latest Code Status on File) Date Activated Date Inactivated Comments 05/19/2014 12:50 PM 05/21/2014 1:43 PM
--- OUTSIDE RECORDS SUMMARY | 2025-09-10 09:59 | XMS_ITS | Clinical Summary ---
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
--- OUTSIDE RECORDS SUMMARY | 2025-09-10 09:59 | XMS_ITS | Encounter Summary ---
Author Organization [employer] Address [address] [place] [address] Care Team Providers Care Criminal Justice Professor Name Role Phone Da Malcolm MD Primary Care Provider + Encounter Details Date Type Department Care Team (Late st Contact Info) Description 05/19/2002 Outpatient [facility] [address] [place] [address] 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
--- OUTSIDE RECORDS SUMMARY | 2025-09-10 09:59 | XMS_ITS | Encounter Summary ---
Author Organization [facility] Health Address [address] [place] [address] Care Team Providers Care Aircraft Engine Installer Name Role Phone Unavailable Primary Care Provider Unavailabl e Encounter Details Date Type Department Care Team (Late st Contact Info) Description 03/04/2014 [facility] Outpatient Visit EXTERNAL NON-[facility] DEPT Fred Brooks MD [address] [phone] Social History Tobacco Use Types Packs/Day Years Used Date Smoking Tobacco: Former Cigarettes Q uit: 11/19/1998 Smokeless Tobacco: Never Alcohol Use Standard Drinks/Week Comments No 0 (1 standard drink = 0.6 oz pur e alcohol) Comments No Sex and Gender Information Value Date Recorded Sex Assigned at Not on file 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
--- OUTSIDE RECORDS SUMMARY | 2025-09-10 09:59 | XMS_ITS | Encounter Summary ---
Author Organization [facility] Address [address] [place] [address] Care Team Providers Care Key Cutter Name Role Phone Da Malcolm MD Primary Care Provider + Encounter Details Date Type Department Care Team (Late st Contact Info) Description 05/15/2023 Lab Requisition [facility] Services [address] [place] [address] [place] [phone] [facility], External Provider [address] [place] [address] [place] [address] Social History Tobacco Use Types Packs/Day Years Used Date Smoking Tobacco: Former Cigarettes 0.5 20 0 11/19/1972 - 11/19/1992 Smokeless Tobacco: Never Alcohol Use Standard Drinks/Week Comments Never 0 (1 standard drink = 0.6 oz pur e alcohol) Comments Unknown Sex and Gender Information Value Date Recorded Sex Assigned at Not on file 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 Gender Identity Not on file Sexual Orientation Not on file documented as of this encounter Plan of Treatment Not on file documented as of this encounter Procedures Procedure Name Priority Date/Time Associated Diagnosis Comments D-DIMER Stat 05/15/2023 10:20 AM CDT documented in this encounter Results * D-DIMER (05/15/2023 10:20 AM CDT) D-DIMER QUANT 0.38 <0.42 ug/mL FEU 05/15/2023 11:25 AM CDT [facility] [employer] [facility] Blood Collection / Unknown 05/15/2023 10:20 AM CDT 05/15/2023 11:01 AM CDT Narrative [facility] - 05/15/2023 11:25 AM CDT D-Dimer [...] years: 0.71-0.80 ug/mL FEU us External Provider [facility] HEMATOLOGY ORDERABLES Fi nal Result [facility]AT[facility]# [id number] [address] [place] [address] documented in this encounter Visit Diagnoses Not on filedocumented in this encounter Care Teams Key Cutter Relationship Specialty Start Date End Date Da Malcolm MD [address] [place] [phone] PCP - General Internal Medicine 01/09/23 documented as of this encounter
--- OUTSIDE RECORDS SUMMARY | 2025-09-10 09:59 | XMS_ITS | Encounter Summary ---
Author Organization [employer] Address [address] [place] [address] Care Team Providers Care Real Estate Operations Manager Name Role Phone Da Malcolm MD Primary Care Provider + Encounter Details Date Type Department Care Team (Late st Contact Info) Description 06/02/2002 Outpatient [facility] [address] [place] [address] 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
--- OUTSIDE RECORDS SUMMARY | 2025-09-10 09:59 | XMS_ITS | Clinical Summary ---
Author Organization [facility] Address [place] [address] Care Team Providers Care Hand Kiss Setter Name Role Phone Da Malcolm MD Primary Care Provider [phone] Clarence Colon MD Unavailable [phone] Allergies Active Allergy Reactions Criticality Noted Date [...] Department Care Team Description 07/29/2025 Orders Only [facility] Cardiology [address] [place] [address] Rashad Weathers MD from Last 3 Months Surgical History Surgery Date Site/Laterality Comments NECK SURGERY Neck Surgery - X2 in 2001,2009 (Added by TW Conv) BACK SURGERY Lower Back Surgery - (Added by TW Conv) [place] TOTAL ABDOMINAL HYSTERECT W/WO RMVL TUBE OVARY Hysterectomy - partial 1977 (Added by TW Conv) FOOT SURGERY Foot Surgery Left - May 06 2014 (Added by TW Conv) [place] REPAIR RECTOCELE SEPARATE PROCEDURE Rectocele Repair - [...] on file Legal Sex Female 12:37 AM COMBO WELDER Gender Identity Not on file Sexual Orientation Not on file Obstetrics History Last Filed Vital Signs Vital Sign Reading Time Taken Comments Blood Pressure 123/65 09/23/2023 12:20 PM COMBO WELDER Pulse 79 09/23/2023 12:20 PM COMBO WELDER Temperature 36.8 C (98.2 F) 09/23/2023 12:20 PM COMBO WELDER Respiratory Rate 18 09/23/2023 12:20 PM COMBO WELDER Oxygen Saturation 94% 09/23/2023 12:20 PM COMBO WELDER Inhaled Oxygen Concentration - - Weight 108.9 [...] CHOICE MEDICARE PPO HUMANA CHOICE MEDICARE PPO [facility] MEDICARE ADVANTAGE Advance Directives For more information, please contact: [phone] * Full Code (Latest Code Status on File) Date Activated Date Inactivated Comments 09/21/2023 6:51 PM 09/23/2023 7:28 PM Care Teams Hand Kiss Setter Relationship Specialty Start Date End Date Da Malcolm MD [address] [place] [address] PCP - General 05/31/10 Clarence Colon MD [address] [place] [address] Consulting Physician Neurosurgery 09/21/23
--- OUTSIDE RECORDS SUMMARY | 2025-09-10 09:59 | XMS_ITS | Encounter Summary ---
Author Organization [employer] Address [address] [place] [address] Care Team Providers Care Pharmacy Assistant Name Role Phone Da Malcolm MD Primary Care Provider + Encounter Details Date Type Department Care Team (Late st Contact Info) Description 05/19/2002 Outpatient [facility] [address] [place] [address] 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
--- OUTSIDE RECORDS SUMMARY | 2025-09-10 09:59 | XMS_ITS | Encounter Summary ---
Author Organization [facility] Address [address] [facility] [place] [address] Care Team Providers Care Contracting Manager Name Role Phone Unavailable Primary Care Provider Unavailabl e Encounter Details Date Type Department Care Team (Late st Contact Info) Description 02/27/2014 [facility] Outpatient Visit EXTERNAL NON-[facility] DEPT Fred Brooks MD [address] [phone] Social History Tobacco Use Types Packs/Day Years Used Date Smoking Tobacco: Former Cigarettes Q uit: 11/19/1998 Smokeless Tobacco: Never Alcohol Use Standard Drinks/Week Comments No 0 (1 standard drink = 0.6 oz pur e alcohol) Comments No Sex and Gender Information Value Date Recorded Sex Assigned at Not on file Legal Sex Female 3:04 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
== END 2025-09-10 09:26 | disposition home or self-care (01) ==
PROVIDERS: PCP Internal Medicine; Visit Provider Orthopaedic Surgery
DX: M25.562 Pain in left knee (principal); G89.29 Other chronic pain
CPT/HCPCS: 73564